=== PATIENT | female | born 1985 | race Caucasian/White ===

== ENCOUNTER 2017-01-26 19:20 | Emergency (ER) | payer SELFPAY ==
--- NOTE | 2017-01-26 20:20 | RAD ---
PORTABLE CHEST 01/26/17 PROVIDED CLINICAL HISTORY: Chest pain. FINDINGS: Comparison is made with the study dated 04/15/16. The cardiac silhouette appears prominent which may be at least partially on the basis of portable keo hnique. There is multifocal air space disease present within the right lung compatible with pneumonia in the appropriate clinical context. No pleural fluid or pneumothorax is evident. IMPRESSION: Right sided air space disease, compatible with pneumonia in the appropriate clinical context. Radiogr aphic followup after treatment is recommended to evaluate for resolution. POS: [facility]
[2017-01-26] MEDS ORDERED: Ibuprofen 800 MG TAB ONE (21:23)
[2017-01-26 21:52] LABS: Hematocrit 44.1 % (36.0-47.0); Mean Platelet Volume 8.6 fL (7.4-10.4); Red Blood Cell (RBC) Count 4.77 mill/uL (4.20-5.40); White Blood Cell (WBC) Count 8.2 thou/uL (4.8-10.8)
[2017-01-26 22:01] LABS: ALT (SGPT) 52 U/L (8-55); AST (SGOT) 58 U/L (5-34); Alkaline Phosphatase 46 U/L (40-150); Anion Gap 20 mmol/L (10-20); BUN (Urea Nitrogen) 15 mg/dL (7.0-18.7); Bilirubin, Total 1.6 mg/dL (0.2-1.2); Calc. Creatinine Clearance 0 mL/min (70-130); Calcium 9.6 mg/dL (7.8-10.44); Carbon Dioxide 19 mmol/L (22-29); Chloride 99 mmol/L (98-107); Estimated GFR-MDRD 26; Globulin 4.1 g/dL (2.4-3.5)
[2017-01-26 22:06] LABS: Troponin I Less than 0.010 ng/mL (< 0.028)
[2017-01-26 22:11] LABS: Band 46 % (5-11); Metamyelocyte 8 % (0-0); Neutrophil 26 % (42-75); Reactive Lymphocytes 1 % (0-10); Toxic Granulation SLIGHT; Vacuoles SLIGHT
== END 2017-01-27 00:32 | disposition home or self-care (01) ==
LOC: ERS 19:20
DX: J18.9 Pneumonia, unspecified organism (principal); E11.9 Type 2 diabetes mellitus without complications; I10 Essential (primary) hypertension; E66.9 Obesity, unspecified; E78.00 Pure hypercholesterolemia, unspecified; F41.9 Anxiety disorder, unspecified; Z79.84 Long term (current) use of oral hypoglycemic drugs; Z79.899 Other long term (current) drug therapy
CPT/HCPCS: 36416; 71010; 80053; 82553; 83880; 84484; 85025; 85060; 85379; 93005; 96360

== ENCOUNTER 2017-01-27 14:31 | Inpatient (IN) | payer SELFPAY ==
--- NOTE | 2017-01-27 15:12 | RAD ---
CHEST 1 VIEW: Date: 01/27/17 HISTORY: Dyspnea. COMPARISON: Chest 1 view dated 01/26/17. FINDINGS: Heart size is enlarged. There are extensive bilateral parenchymal opacities throughout both lungs. La rge layering right effusion. IMPRESSION: Mild worsening of effusions and extensive parenchymal opacities concerning for infection. POS: [facility]
[2017-01-27 15:17] LABS: Hemoglobin 14.5 g/dL (12.0-16.0); Mean Corpuscular HGB CONC 33.8 g/dL (32.0-36.0); Mean Corpuscular Hemoglobin 31.7 pg (27.0-31.0); Mean Corpuscular Volume 93.8 fl (81.0-99.0); Mean Platelet Volume 8.1 fL (7.4-10.4); Platelet Count 215 thou/uL (130-400); RBC Distribution Width 12.6 % (11.5-14.5); Red Blood Cell (RBC) Count 4.57 mill/uL (4.20-5.40)
[2017-01-27 15:34] LABS: Band 41 % (5-11); Lymphocytes 16 % (21-51); MDiff Complete? YES; Metamyelocyte 9 % (0-0); Monocytes 5 % (0-10); Neutrophil 29 % (42-75); RBC Morphology Normal; Toxic Granulation SLIGHT; Vacuoles SLIGHT
[2017-01-27 15:35] LABS: ALT (SGPT) 44 U/L (8-55); AST (SGOT) 48 U/L (5-34); Albumin 3.9 g/dL (3.5-5.0); Alkaline Phosphatase 44 U/L (40-150); Anion Gap 25 mmol/L (10-20); BUN (Urea Nitrogen) 30 mg/dL (7.0-18.7); Bilirubin, Total 1.1 mg/dL (0.2-1.2); Calc. Creatinine Clearance 0 mL/min (70-130); Carbon Dioxide 15 mmol/L (22-29); Chloride 98 mmol/L (98-107); Estimated GFR-MDRD 18; Glucose 160 mg/dL (70-105); Potassium 4.1 mmol/L (3.5-5.1); Protein, Total 7.9 g/dL (6.0-8.3); Sodium 134 mmol/L (136-145)
[2017-01-27] MEDS ORDERED: Lorazepam 2 MG/ML VIAL ONE (16:03)
[2017-01-27] MEDS ORDERED: Fentanyl 20 MCG/ML 250 ML ONE (16:22)
[2017-01-27] MEDS ORDERED: Ondansetron HCl/PF 4 MG/2 ML Vial ONE (16:40)
[2017-01-27] MEDS ORDERED: EPINEPHrine 1 MG/10 ML Abboject SYRINGE ONE (16:43)
[2017-01-27] MEDS ORDERED: EPINEPHrine 1 MG/ML AMP ONE (16:43)
[2017-01-27 17:22] LABS: Actual Bicarbonate (HCO3a) 18.2 mEq/L (22-26); Base Excess (BEa) -11.7 mEq/L (0 (+/-) 2.5); CO2 Tension 58.4 mmHg (35.0-45.0); Hematocrit-ABG 44.4 % (36.0-47.0); Hemoglobin (Hb) 13.7 g/dL (12.0-16.0); O2 Tension (PaO2) 98.4 mmHg (80.0-100.0)
[2017-01-27 17:24] LABS: Analyzer IN Cardio ER; Puncture Site LR; pH, Arterial 7.11 (7.35-7.45)
--- NOTE | 2017-01-27 17:48 | RAD ---
SUPINE CHEST ONE VIEW: 01/27/17 HISTORY: 31-year-old female with history of pneumonia with worsening shortness of breath. COMPARISON: 01/27/17, 3:06 p.m. An NG tube and endotracheal tubes have been placed in satisfactory location. Extensive bilateral alve olar pneumonia much more severe on the right side than the left. Overall, appearance of the chest is not significantly changed. There is improved aeration. IMPRESSION: Satisfactory position of the NG tube and endotracheal tubes. Extensive pneumonia bilaterally, particu larly on the right side with slightly improved aeration but otherwise little change. POS: [facility]
[2017-01-27 18:14] LABS: Bilirubin Negative (Negative); Blood, Urine Small (Negative); Clarity CLOUDY (Clear); Glucose, Urine (Dipstick) Negative (Negative); Leukocyte Negative (Negative); Nitrite Negative (Negative); Protein, Urine (Dipstick) 100 mg/dL (Neg-Trace); Specific Gravity, Urine 1.019 (1.002-1.036); Urobilinogen 0.2 mg/dL (0.2-1.0); pH, Urine 5.5 (5.0-9.0)
[2017-01-27 18:17] LABS: RBC/HPF 0-3 HPF (0-3); Yeast-AUWi Flag 218.4 (0-25.0)
[2017-01-27 18:18] LABS: Pathc Cast-AUWi Flag 13.28 (0-2.49)
[2017-01-27 18:24] LABS: Bacteria/HPF 4+ HPF (None Seen); Hyaline Casts/LPF 4-6 HYALINE CAST LPF (0-3 Hyaline); Manual Microscopic Reviewed? No Path Casts Seen; Other Casts/LPF 4-6 FINELY GRAN LPF (0-3 Hyaline); Renal Epithelial None Seen HPF (0-3); Transitional Epithelial NONE SEEN HPF (0-3); Yeast-All Forms None Seen HPF (None Seen)
[2017-01-27] MEDS ORDERED: Norepinephrine 8 MG/0.9% NS 250 ML ONE (18:42)
--- NOTE | 2017-01-27 18:42 | HP ---
DATE OF ADMISSION: 01/27/2017 TIME OF SERVICE: 1645 to 1733. PRIMARY CARE PHYSICIAN: More. CHIEF COMPLAINT: Shortness of breath. HISTORY OF PRESENT ILLNESS: Mr. Andrade is a 31-year-old severely obese female with history of hyper tension and diabetes, who presented to the emergency department today for increasing shortness of isaac ath. The patient is a 31 and mother of 4, apparently all 4 of her children at home have the flu currently. She was feeling poorly yesterday and presented to the emergency department for evaluation last even ing. She was having body aches and flu-like symptoms. Labs here yesterday revealed slightly increas ed temperature 99.4, she is slightly tachycardic, she was given Motrin and a liter of saline and 4 ba by aspirin. Chest x-ray revealed right-sided bibasilar pneumonia, right greater than left. She was given albuterol nebulizers. She was given a dose of azithromycin and started her on Levaquin 750 mg daily and sent home. Flu test was negative. She went home and apparently worsened. She presented back to emergency department today for evaluati on. Per the record, she thinks she might have fever, but she has been using her inhaler and her nebu lizer last couple of hours prior to admission. On arrival, she was hypoxic with an oxygen saturation on arrival of 85% on room air. She was placed on oxygen and eventually on BiPAP. She actually did vomit into the BiPAP mask and unsure if she aspirated. Her blood pressure did drop off initially fro m 110s/60s down into the 80s/40s. She continued to worsen and thus was paralyzed and intubated in e emergency department. Her labs came back largely unremarkable except for bandemia, her creatinine today is 3.06 up from the 2.17 before that and back in 04/2016 was normal at 0.71. Lactic acid 7.6. She is currently sedated, paralyzed on the ventilator. We have been called for admission. The patient unable to give further history. The history was taken from the chart and from the emerge ncy department team. PAST MEDICAL HISTORY: 1. Severe obesity. 2. Diabetes mellitus type 2, noninsulin dependent. 3. Hypertension. 4. Hyperlipidemia, primary cholesterol. 5. History of anxiety. PAST SURGICAL HISTORY: 1. Bilateral tubal ligation. 2. Cholecystectomy. 3. x4. 4. Tonsillectomy. HOME MEDICATIONS: 1. Metformin 500 mg p.o. q.p.m. 2. Zoloft 150 mg p.o. at bedtime. 3. Losartan/HCTZ 100/25 one tablet b.i.d. 4. Albuterol sulfate MDI 2 puffs every 4 hours as needed. 5. Azithromycin 250 mg daily. 6. Levaquin 750 mg daily. ALLERGIES: KEFLEX, reaction is not known and she is unable to give it. FAMILY HISTORY: Unknown. Per the ER doctor, she has no history of clotting or bleeding disorder or immune dysfunction. SOCIAL HISTORY: She is a mother of 4. Apparently all sick. No alcohol, drug or smoking history. REVIEW OF SYSTEMS: Unobtainable due to her being intubated and sedated. PHYSICAL EXAMINATION: VITAL SIGNS: Temperature around 97.6, pulse 94/64, respiratory rate 36, pulse 112, saturating 98% on BiPAP. She is currently 100% on ventilator. GENERAL: She is severely obese. She is sedated and paralyzed and orally intubated. She is in no di stress. HEENT: Normocephalic, atraumatic. Pupils are 2-3 mm and minimally reactive. Mucous membranes are m oist. Oral endotracheal tube is in place. NECK: Supple. There is no lymphadenopathy. I cannot appreciate JVD. I cannot feel her thyroid. LUNGS: Have coarse bibasilar crackles. She has a prolonged expiratory phase and low pitched wheezin g throughout her lung carlos. I do not hear rhonchi. CARDIOVASCULAR: She is tachycardic, irregular. She has normal S1, S2. I cannot appreciate murmurs. ABDOMEN: Severely obese. I can hear normoactive bowel sounds. I cannot palpate internal organs. EXTREMITIES: No cyanosis. No clubbing. She has got nonpitting edema in the bilateral lower extremi ties below the knee. SKIN: Got multiple areas of inflammation consistent with folliculitis. She has no other rashes or l esions. NEUROLOGIC: Gait was not testable due to her intubated and paralyzed status. MUSCULOSKELETAL: Large joints appear normal to inspection. LABORATORY DATA: CMP showed sodium 134, potassium 4.1, chloride 98, bicarb 15, BUN 30, creatinine 3. 02, 2.17 today from 0.71 back in April of this year. Glucose is 160. Lactic acid 7.6, it was not ch ecked yesterday. Calcium 9.0, total bilirubin 1.1. AST barely elevated at 48, ALT of 44, alkaline p hosphatase 44. BNP 189.8, up from 28 yesterday. Albumin is normal at 3.9. Blood gas is pending. D-dimer yesterday was 0.63. CBC today showed a white count of 4.0, down from 8.2 yesterday, hemoglob in 14.5, hematocrit of 42.8, and platelet count is 215,000. She has a 29% granulocytosis with a 41% bandemia. She has a 9 metamyelocytes present. Chest x-ray today at 2:40, she had a portable chest x-ray done that showed mild worsening of the effu dara and extensive parenchymal opacities in both lungs, by my looks worse on the right than the left . Post-intubation x-ray is currently pending. It does show to have diffuse bilateral interstitial o pacities consistent with pneumonia. Laboratory on today, 01/27/2017, influenza positive for influenza A. I do not see one from yesterday . ASSESSMENT AND PLAN: 1. Severe sepsis. The patient has a presumed bacterial infection, elevated lactate and acute kidney injury indicating end organ disease. She was hypotensive, tachycardic, and febrile. She does not h ave an elevated white count, it is actually little on the low side today, but she does have a profoun d left shift with 41% granulocytes, 9% myelocytes. She certainly meets criteria for severe sepsis. Her blood pressure remained stable after IV fluids. I do not think she has septic shock at this time . 2. Community-acquired pneumonia: The patient does have bilateral infiltrates that are getting worse . I will place her on cefepime and levofloxacin for community-acquired pneumonia in an ICU patient. Given the fact that she threw up in her BiPAP mask and may have aspirated, we will start her and con tinue her on clindamycin 900 mg IV q.8 hours as well. 3. Influenza A. The patient reportedly was negative yesterday I do not see that lab, she is positiv e today. We will start her on oseltamivir 75 mg orally b.i.d. We will have an OG tube placed when s he gets up to the ICU. 4. Diabetes mellitus type 2. Sugars on arrival was 160. She is getting Solu-Medrol. Thus, we will place on insulin drip with every one hour Accu-Cheks, this will be per ICU protocol. 5. Hypertension: We will hold her medicines for now. She is actually a little on the hypotensive s nancy now. 6. Obesity. 7. Acute hypoxemic respiratory failure: The patient has been intubated and placed on the ventilator . We will use Solu-Medrol 40 mg IV q.6 hours in addition to scheduled DuoNebs q.4 tonight and q.2 al buterol as needed. We will adjust her oxygen and ABG after her intubation. The patient is being admitted inpatient to the Critical Care Unit. I have spoken with Dr. Nolberto robins, who will assist with the patient as needed.
[2017-01-27] MEDS ORDERED: DISCONTINUE PREVIOUS NARCOTIC PAIN MEDICATIONS AND BENZODIAZEPINES FS SCH ×2 (19:34→20:40)
[2017-01-27] MEDS ORDERED: Lorazepam 2 MG/ML VIAL SLOW IVP PRN (19:34)
[2017-01-27] MEDS ORDERED: Propofol 1,000 MG/100 ML VIAL IV PRN (19:34)
[2017-01-27] MEDS ORDERED: Fentanyl 20 MCG/ML 250 ML IVPB SCH ×2 (19:34→20:40)
[2017-01-27] MEDS ORDERED: Morphine 2 MG/ML SYRINGE IVP PRN (19:36)
[2017-01-27] MEDS ORDERED: Ondansetron HCl/PF 4 MG/2 ML Vial IVP PRN (19:41)
[2017-01-27] MEDS ORDERED: Ondansetron ODT 4 MG TAB SL PRN (19:41)
[2017-01-27] MEDS ORDERED: Cefepime 2 GM, Syringe 2.5 ML in Sterile Water 10 ML SLOW IVP SCH (19:45)
[2017-01-27] MEDS ORDERED: Diazepam 10 MG/2 ML SYRINGE IVP SCH (19:45)
[2017-01-27] MEDS ORDERED: Sodium Chloride 0.9% 1,000 ML IV SCH (19:45)
[2017-01-27 20:05] LABS: Lactic Acid 3.4 mmol/L (0.5-2.2)
[2017-01-27] MEDS ORDERED: Ventilator Sedation Protocol 1 EACH FS SCH (20:23)
[2017-01-27] MEDS ORDERED: Albuterol Sulfate 2.5 mg/3 ml Neb NEB PRN (20:23)
[2017-01-27 20:43] LABS: Actual Bicarbonate (HCO3a) 15.5 mEq/L (22-26); Base Excess (BEa) -11.2 mEq/L (0 (+/-) 2.5); CO2 Tension 37.6 mmHg (35.0-45.0); Hematocrit-ABG 39.4 % (36.0-47.0); Hemoglobin (Hb) 12.6 g/dL (12.0-16.0); O2 Tension (PaO2) 84.2 mmHg (80.0-100.0)
[2017-01-27] MEDS ORDERED: Sodium Bicarb 50 MEQ/50 ML Abboject 8.4% SYRINGE IVP SCH (20:45)
[2017-01-27] MEDS ORDERED: Enoxaparin Sodium 40 MG/0.4 ML SYRINGE SC SCH (20:45)
[2017-01-27 20:53] LABS: pH, Arterial 7.23 (7.35-7.45)
[2017-01-27 20:54] LABS: Puncture Site RRA
[2017-01-27] MEDS ORDERED: Cefepime 2 GM VIAL IVPB SCH (21:00)
[2017-01-27] MEDS ORDERED: Albumin 25% 25 GM/100 ML BOT IVPB SCH ×2 (21:00→23:59)
[2017-01-27] MEDS ORDERED: Lorazepam 2 MG/ML VIAL SLOW IVP SCH (21:15)
[2017-01-27] MEDS ORDERED: Vecuronium 10 MG VIAL IV SCH (21:15)
[2017-01-27] MEDS: Sodium Bicarbonate 150 MEQ in D5 1/4 NS 1,000 ML IV SCH (21:37)
[2017-01-27] MEDS: Sodium Chloride 0.9% 1,000 ML IV SCH (21:39)
[2017-01-27] MEDS: Oseltamivir 6 MG/ML ORAL SUSP PO SCH (22:26)
[2017-01-27] MEDS: Clindamycin/D5W 900 mg/50 ml Premix Bag IVPB SCH (22:27)
[2017-01-28] MEDS: Norepinephrine 8 MG/0.9% NS 250 ML IVPB SCH ×4 (00:21→16:05)
--- NOTE | 2017-01-28 01:46 | CON ---
DATE OF CONSULTATION: 01/27/2017 HISTORY OF PRESENT ILLNESS: Ms. Andrade is a 31-year-old female who presented to the emergency depar tment earlier today with complaints of shortness of breath. She was noninvasively ventilated for a w hile and then eventually intubated. She told the emergency physician that she was diagnosed with pneumonia yesterday. It is unclear to m e where this diagnosis was made or how was made. It is also unclear how long she has been ill. Her sister is here who actually is and chanel dean explained to me that Mariza will never go to the doctor. She has a who does not speak Swedish. They have 4 children at home and she has a mother also that is aware that she is in the hospital. Apparently all of her children have been diagnosed with influenza. No other history is obtainable from her or the sister. Reviewing records, she was apparently in the emergency room yesterday. Chest radiograph showed an al veolar infiltrate on the right. She was sent home and came back today, required intubation now, she has a central line in her right groin, then apparently was placed in the emergency department with di fficulty on ultrasound guidance because of her size. She is on 2 pressors. PAST MEDICAL HISTORY: Reportedly positive for hypertension and diabetes, sister says she does not ta ke any medicines. PAST SURGICAL HISTORY: She has had a tonsillectomy, tubal ligation, cholecystectomy, four C-sections in the past. SOCIAL HISTORY: She is a nonsmoker, nondrinker according to old records. Apparently Zithromax and Levaquin were prescribed yesterday. It is unclear to me whether or not thes e prescriptions were filled. PHYSICAL EXAMINATION: GENERAL: She has a left forearm bariatric cuff on. VITAL SIGNS: Blood pressure is fluctuating. HEENT: Pupils react. Sclerae are anicteric. She is paralyzed and sedated for mechanical ventilatio n. She has coarse equal breath sounds, worse on the right. HEART: Regular rhythm, distant S1 and S2. ABDOMEN: Massive. EXTREMITIES: Without asymmetry. LABORATORY AND X-RAY FINDINGS: White count 4, hemoglobin 14.5, platelets 215. She had 41% bands on her peripheral smear. She had 46% bands on a peripheral smear yesterday. No cultures were done yest erday. Influenza swab is positive for influenza A today, which I suspect is probably already out of the infectious window. Chest radiograph shows a dense alveolar infiltrate on the right and smaller one on the left. IMPRESSION: 1. Post-influenzal pneumonia, most likely pneumococcus. 2. Clinical sepsis. PLAN: IV steroids, IV antibiotics, IV Levophed, IV vasopressin salt-poor albumin, mechanical ventila tion, paralysis and sedation as needed. Prognosis is quite guarded. I met with her sister, answered all of her questions. Critical care time with the patient was 90 minutes independent of procedures and family meetings.
[2017-01-28] MEDS ORDERED: EPINEPHrine 4 MG, Admixture Fee 1 EACH in Dextrose 5% in Water 250 ML IVPB SCH ×3 (02:00)
[2017-01-28] MEDS: Sodium Bicarbonate 150 MEQ in D5 1/4 NS 1,000 ML IV SCH ×4 (02:09→19:25)
--- NOTE | 2017-01-28 02:16 | OP ---
DATE: 01/27/2017 PROCEDURE: Attempted arterial line placement, left groin. Her left groin was prepped aggressively with chlorhexidine and Betadine. The left femoral artery cou ld not be located with finder needle. I am not sure a catheter could even be fed into the femoral ar brie unless it was a 5 inch 16 gauge straight IV catheter. This procedure was aborted after multiple attempts and a dressing was applied. No bleeding was noted post procedure. I am hesitant to place a radial arm catheter because of her high dose pressor requirements. I am worried about hand necrosi s in this setting, so we will just manage her with forearm bariatric cuff.
[2017-01-28] MEDS: Albumin 25% 25 GM/100 ML BOT IVPB SCH ×4 (02:20→20:53)
[2017-01-28] MEDS: Vecuronium 10 MG VIAL IV PRN ×10 (02:21→23:18)
[2017-01-28] MEDS: Clindamycin/D5W 900 mg/50 ml Premix Bag IVPB SCH ×3 (04:05→20:57)
[2017-01-28] MEDS ORDERED: Vancomycin HCl 1 GM in Premix Bag 1 BAG IVPB SCH (05:00)
[2017-01-28] MEDS: Acetaminophen 1,000 MG in Premix Bag 1 BAG IVPB PRN ×2 (05:35→19:10)
[2017-01-28] MEDS: Sodium Chloride 0.9% 1,000 ML IV SCH ×3 (05:42→21:04)
[2017-01-28 06:12] LABS: ALT (SGPT) 44 U/L (8-55); AST (SGOT) 87 U/L (5-34); Albumin 3.2 g/dL (3.5-5.0); Alkaline Phosphatase 44 U/L (40-150); Anion Gap 25 mmol/L (10-20); BUN (Urea Nitrogen) 35 mg/dL (7.0-18.7); Bilirubin, Total 1.3 mg/dL (0.2-1.2); Calc. Creatinine Clearance 86 mL/min (70-130); Calcium 7.6 mg/dL (7.8-10.44); Carbon Dioxide 16 mmol/L (22-29); Chloride 99 mmol/L (98-107); Estimated GFR-MDRD 20; Glucose 328 mg/dL (70-105); Potassium 3.9 mmol/L (3.5-5.1); Protein, Total 6.2 g/dL (6.0-8.3); Sodium 136 mmol/L (136-145)
[2017-01-28 06:19] LABS: Hemoglobin 11.6 g/dL (12.0-16.0); Mean Corpuscular HGB CONC 32.5 g/dL (32.0-36.0); Mean Corpuscular Hemoglobin 30.7 pg (27.0-31.0); Mean Corpuscular Volume 94.4 fl (81.0-99.0); Platelet Count 243 thou/uL (130-400); RBC Distribution Width 12.7 % (11.5-14.5); Red Blood Cell (RBC) Count 3.77 mill/uL (4.20-5.40); White Blood Cell (WBC) Count 6.9 thou/uL (4.8-10.8)
[2017-01-28 06:52] LABS: Band 40 % (5-11); Lymphocytes 15 % (21-51); MDiff Complete? YES; Metamyelocyte 3 % (0-0); Monocytes 1 % (0-10); Neutrophil 41 % (42-75)
[2017-01-28 07:35] LABS: CO2 Tension 27.2 mmHg (35.0-45.0); Calcium, Ionized 0.9 mmol/L (1.12-1.30); Hemoglobin (Hb) 11.4 g/dL (12.0-16.0); O2 Tension (PaO2) 287.9 mmHg (80.0-100.0); pH, Arterial 7.36 (7.35-7.45)
[2017-01-28 07:37] LABS: Puncture Site LBA
[2017-01-28] MEDS: Cefepime 2 GM, Syringe 2.5 ML in Sterile Water 10 ML SLOW IVP SCH ×2 (08:35→20:55)
[2017-01-28] MEDS: Enoxaparin Sodium 40 MG/0.4 ML SYRINGE SC SCH (08:38)
[2017-01-28] MEDS: Lorazepam 2 MG/ML VIAL SLOW IVP PRN ×5 (08:59→17:10)
[2017-01-28] MEDS ORDERED: FLU VACC QS2017-18 36 mo. & older 0.5 ML SYRINGE IM ONE (09:00)
--- NOTE | 2017-01-28 09:52 | RAD ---
AP VIEW CHEST: Date: 01/28/17 HISTORY: Ventilator dependent patient. FINDINGS: Comparison made to previous exam from 01/28/17. AP view of chest demonstrates endotracheal tube in place, distal tip clearly not visible. Endotrachea l tube is in good position. Cardiomegaly is noted. There is an area of opacification in the right lung base concerning for a right-sided effusion. Diffu se air space opacities seen in the right upper lobe, right middle lobe, and right lower lobe compatib le with multilobar right lung pneumonia. There may be some areas of patchy density in the left lower lobe as well. The left upper lobe is well aerated, except for some pulmonary vascular congestion. IMPRESSION: Stable AP view of chest with extensive right lung opacities. Endotracheal tube is in good position. POS: [facility]
[2017-01-28] MEDS: Oseltamivir 6 MG/ML ORAL SUSP PO SCH ×2 (10:47→21:38)
[2017-01-28] MEDS ORDERED: Dextrose 5% in Water 1,000 ML IV PRN (15:35)
[2017-01-28] MEDS ORDERED: Dextrose 50% Abboject 50 ML SYRINGE IVP PRN (15:35)
[2017-01-28] MEDS: HumaLOG 300 UNITS/3 ML VIAL SC PRN ×2 (16:04→22:08)
--- NOTE | 2017-01-28 22:37 | PDOC.PN ---
- Subjective Encounter Start Date: 01/28/17 Encounter Start Time: 17:00 -: non-verbal Patient seen and examined[facility] - Objective Resuscitation Status: Resuscitation Status FULL:Full Resuscitation MAR Reviewed: Yes Vital Signs & Weight: Vital Signs (12 hours) Temp Pulse Resp Pulse Ox 01/28/17 22:34 95 23 H 98 01/28/17 21:00 102.0 F H 01/28/17 20:00 102.3 F H 98 30 H 98 01/28/17 19:31 30 H 01/28/17 19:02 98 22 H 99 01/28/17 19:00 102.3 F H 01/28/17 18:00 30 H 01/28/17 16:00 99.7 F H 30 H 01/28/17 15:15 94 01/28/17 14:00 30 H 01/28/17 12:51 94 01/28/17 12:00 99.9 F H 30 H 01/28/17 11:02 93 Weight Admit Weight 414 lb Weight 414 lb 7.504 oz Most Recent Monitor Data Heart Rate from ECG 94 NIBP 120/69 NIBP BP-Mean 84 Respiration from ECG 30 SpO2 97 I&O: 01/27/17 01/28/17 01/29/17 06:59 06:59 06:59 Intake Total 4054.3 4617 Output Total 615 1980 Balance 3439.3 2637 Result Diagrams: 01/29/17 04:00 01/29/17 04:00 Additional Labs: Accuchecks 01/28/17 01/28/17 15:55 09:38 POC Glucose 310 H 298 H Radiology Reviewed by me: Yes (CXR - no new changes) EKG Reviewed by me: Yes (Tele SR) Phys Exam - Physical Examination Pt on Mech Vent with 2 pressors. Respiratory: no wheezing Symmetrical, Coarse BS B/L Cardiovascular: RRR, no rub no heaves/pulsation Gastrointestinal: soft, non-tender, no distention, positive bowel sounds Musculoskeletal: no edema Neuro/Psych - Cannot assess due to sedation Dx/Plan - Plan DVT proph w/lovenox, DVT proph w/SCDs IMPRESSION: 1. Acute hypoxic/hypercapnic Resp failure on Mech Vent 2. Severe sepsis with acuter organ dysfunction/Septic shock due to Pneumococcal Pneumonia/Recent Flu A 3. FREDY 4. Metabolic acidosis/Lactic acidosis 5. DM2/HTN/Morbid Obesity BMI 68.2/Anxiety-Depression PLAN: * Critical care following * [facility] * Cont IVF with Bicarb * AM labs * Cont to monitor * Cont current meds as below Review of Systems - Review of Systems Other: Cannot obtain due to sedation - Medications/Allergies Allergies/Adverse Reactions: Allergies Allergy/AdvReac Type Severity Reaction Status Date / Time No Allergy Information Allergy Unverified 01/27/17 19:32 Available Medications: Current Medications Acetaminophen (Tylenol) 650 mg OR Q4H PRN PRN Reason: Headache/Fever or Pain Albumin Human (Albumin 25%) 25 gm IVPB 0300,0900,1500,2100 [facility] Stop: 01/29/17 21:00 Last Admin: 01/28/17 20:53 Dose: 25 gm Albuterol Sulfate (Ventolin) 2.5 mg NEB Q2H PRN PRN Reason: Wheezing Albuterol/Ipratropium (Duoneb) 3 ml NEB [id number] [facility] Last Admin: 01/28/17 22:34 Dose: 3 ml Clindamycin Phosphate/Dextrose (Cleocin) 900 mg IVPB 0500,1300,2100 [facility] Last Admin: 01/28/17 20:57 Dose: 900 mg Dextrose/Water (Dextrose 50%) 25 gm IVP PRN PRN PRN Reason: HYPOGLYCEMIA PROTOCOL Enoxaparin Sodium (Lovenox) 40 mg SC 0900 [facility] Last Admin: 01/28/17 08:38 Dose: 40 mg Glucagon (Glucagon) 1 mg IM PRN PRN PRN Reason: HYPOGLYCEMIA PROTOCOL Levofloxacin 750 mg/ Device 150 mls @ 100 mls/hr IVPB Q24HR [facility] Last Admin: 01/28/17 20:48 Dose: 150 mls Norepinephrine Bitartrate (Levophed) 250 mls @ 0 mls/hr IVPB INF [facility]; Titrate PRN Reason: Protocol Last Admin: 01/28/17 16:05 Dose: 250 mls Sodium Chloride (Normal Saline 0.9%) 1,000 mls @ 125 mls/hr IV .Q8H [facility] Last Admin: 01/28/17 21:04 Dose: 1,000 mls Vasopressin 40 unit/ Sodium (Chloride) 102 mls @ 6 mls/hr IV INF [facility] Last Admin: 01/28/17 11:18 Dose: 102 mls Fentanyl (Fentanyl Cadd) 250 mls @ 0 mls/hr IVPB INF [facility]; Titrate PRN Reason: Protocol Stop: 02/26/17 20:40 Fentanyl Citrate (Fentanyl Bolus) 250 mls @ 0 mls/hr IVPB PRN PRN; As Directed PRN Reason: Breakthrough pain Stop: 02/26/17 20:40 Cefepime HCl 2 gm/ Syringe 2.5 (ml/ Sterile Water) 12.5 mls @ 150 mls/hr SLOW IVP 0900,2100 [facility] Last Admin: 01/28/17 20:55 Dose: 12.5 mls Sodium Bicarbonate 150 meq/ (Dextrose/Sodium Chloride) 1,150 mls @ 200 mls/hr IV .Q5H45M [facility] Last Admin: 01/28/17 19:25 Dose: 1,150 mls Epinephrine 4 mg/Miscellaneous Medication 1 each/ Dextrose/Water 254 mls @ 0 mls/hr IVPB INF [facility]; Titrate PRN Reason: Protocol Last Admin: 01/28/17 02:09 Dose: 254 mls Acetaminophen 1,000 mg/ Device 100 mls @ 400 mls/hr IVPB Q6H PRN PRN Reason: PAIN 1-3/FEVER Stop: 01/29/17 05:12 Last Admin: 01/28/17 19:10 Dose: 100 mls Dextrose/Water (D5w) 1,000 mls @ 0 mls/hr IV INF PRN; As Directed PRN Reason: HYPOGLYCEMIA PROTOCOL Insulin Human Lispro (Humalog) 0 units SC .MODERATE SLIDING SC PRN; Protocol PRN Reason: MODERATE SLIDING SCALE Last Admin: 01/28/17 22:08 Dose: 10 unit Lorazepam (Ativan) 2 mg SLOW IVP Q2H PRN PRN Reason: Anxiety to achieve Hinojosa 2-3 Stop: 02/26/17 20:40 Last Admin: 01/28/17 17:10 Dose: 2 mg Methylprednisolone Sodium Succinate (Solu-Medrol) 20 mg IVP 0400,1000,1600, 2200 [facility] Last Admin: 01/28/17 22:09 Dose: 20 mg Morphine Sulfate (Morphine) 2 mg IVP Q2H PRN PRN Reason: Breakthrough pain Stop: 02/26/17 20:43 Discontinue Previous Narcotic Pain Medications And Benzodiazepines 1 each FS .ONE [facility] Stop: 02/26/17 20:40 Oseltamivir Phosphate (Tamiflu) 75 mg PO BID [facility] Stop: 02/01/17 09:01 Last Admin: 01/28/17 21:38 Dose: 75 mg Propofol (Diprivan) 1,000 mg IV INF PRN; Protocol PRN Reason: TO ACHIEVE HINOJOSA SCORE 2-3 Stop: 02/26/17 20:40 Sodium Chloride (Flush - Normal Saline) 10 ml IVF PRN PRN PRN Reason: Saline Flush Vecuronium [place] (Norcuron) 10 mg IV Q1H PRN PRN Reason: FOR MUSCLE PARALYSIS Last Admin: 01/28/17 19:21 Dose: 10 mg
--- NOTE | 2017-01-29 00:13 | PRG ---
DATE OF SERVICE: 01/28/2017 Ms. Andrade appears to be stabilizing. Her pressor requirements appear to be decreasing. OBJECTIVE: VITAL SIGNS: She is febrile, as expected. Heart rate in the 90s. Blood pressure 120/69, respirator y rate was 30. LUNGS: Remarkable for coarse equal breath sounds. HEART: Regular rhythm. ABDOMEN: Soft. Strep pneumonia. It was isolated from 1 blood culture. White count 6.9, hemoglobin 11.6, platelets 243. Sodium 136, potassium 3.9, chloride 99, bicarbonate 16, BUN 35, creatinine 2.82, it is down from 3.02 yesterday and pH 7.36, CO2 of 27, pO2 of 287. IMPRESSION: 1. Respiratory failure associated with pneumococcal pneumonia with bacteremia after influenza in her and all of her kids. 2. Respiratory failure. 3. Life threatening obesity. 4. Diabetes. 5. Medical noncompliance prior to this admission by report. 6. Clinical sepsis with improving pressure requirements. 7. History of hypertension and medical noncompliance. 8. History of four C-sections. 9. History of cholecystectomy. 10. Reported history of asthma. PLAN: Continue mechanical ventilation, pressors, IV antimicrobial therapy. Once sensitivities are b ack, we can simplify antibiotics. There are no signs of digital ischemia at this point in time in sp ite of high dose pressor use. She was started on epinephrine early in the morning and this is weaned off by the time I made rounds this morning still on vasopressin and decreasing dose of Levophed. Sh e will continue with bicarbonate drip. Acute kidney injury appears to be improving for now. Critical care time was 30 minutes.
[2017-01-29] MEDS: Sodium Bicarbonate 150 MEQ in D5 1/4 NS 1,000 ML IV SCH ×2 (00:52→08:09)
[2017-01-29] MEDS: Albumin 25% 25 GM/100 ML BOT IVPB SCH (02:05)
[2017-01-29] MEDS: Vecuronium 10 MG VIAL IV PRN ×7 (02:05→23:58)
[2017-01-29] MEDS: HumaLOG 300 UNITS/3 ML VIAL SC PRN ×4 (03:54→21:41)
[2017-01-29] MEDS: Sodium Chloride 0.9% 1,000 ML IV SCH (04:33)
[2017-01-29] MEDS: Clindamycin/D5W 900 mg/50 ml Premix Bag IVPB SCH ×3 (04:33→20:36)
[2017-01-29 05:19] LABS: ALT (SGPT) 113 U/L (8-55); AST (SGOT) 466 U/L (5-34); Albumin 3.2 g/dL (3.5-5.0); Alkaline Phosphatase 34 U/L (40-150); Anion Gap 17 mmol/L (10-20); BUN (Urea Nitrogen) 34 mg/dL (7.0-18.7); Bilirubin, Total 1.7 mg/dL (0.2-1.2); Calc. Creatinine Clearance 123 mL/min (70-130); Calcium 7.5 mg/dL (7.8-10.44); Carbon Dioxide 25 mmol/L (22-29); Chloride 98 mmol/L (98-107); Estimated GFR-MDRD 30; Globulin 2.5 g/dL (2.4-3.5); Glucose 396 mg/dL (70-105); Potassium 3.4 mmol/L (3.5-5.1); Protein, Total 5.7 g/dL (6.0-8.3); Sodium 137 mmol/L (136-145)
[2017-01-29 05:27] LABS: Band 29 % (5-11); Hemoglobin 9.3 g/dL (12.0-16.0); Lymphocytes 24 % (21-51); MDiff Complete? YES; Mean Corpuscular HGB CONC 32.2 g/dL (32.0-36.0); Mean Corpuscular Volume 93.1 fl (81.0-99.0); Mean Platelet Volume 8.8 fL (7.4-10.4); Monocytes 3 % (0-10); Neutrophil 44 % (42-75); Nucleated RBC 1 % (0); PLT Morphology Comment Appears Adequate; Platelet Count 123 thou/uL (130-400); RBC Distribution Width 12.6 % (11.5-14.5); White Blood Cell (WBC) Count 4.1 thou/uL (4.8-10.8)
[2017-01-29 07:00] LABS: Actual Bicarbonate (HCO3a) 21.4 mEq/L (22-26); Calcium, Ionized 0.9 mmol/L (1.12-1.30); Hematocrit-ABG 29.7 % (36.0-47.0); Hemoglobin (Hb) 9.5 g/dL (12.0-16.0); O2 Tension (PaO2) 137.6 mmHg (80.0-100.0)
[2017-01-29 07:05] LABS: ALV-art Gradient 258.975 (0-20); CO2 Tension 24.5 mmHg (35.0-45.0); Puncture Site LBA; pH, Arterial 7.56 (7.35-7.45)
[2017-01-29] MEDS: Lorazepam 2 MG/ML VIAL SLOW IVP PRN ×3 (08:09→16:51)
[2017-01-29] MEDS: Enoxaparin Sodium 40 MG/0.4 ML SYRINGE SC SCH (08:44)
[2017-01-29] MEDS: Cefepime 2 GM, Syringe 2.5 ML in Sterile Water 10 ML SLOW IVP SCH ×2 (08:44→20:36)
[2017-01-29] MEDS: Sodium Chloride 0.45% 1,000 ML IV SCH (08:54)
[2017-01-29] MEDS: Oseltamivir 6 MG/ML ORAL SUSP PO SCH ×2 (09:14→20:55)
--- NOTE | 2017-01-29 10:04 | RAD ---
AP VIEW CHEST: Date: 01/29/17 HISTORY: Ventilator dependent patient. FINDINGS: Comparison made to previous exam from 01/28/17. AP view of chest demonstrates nasogastric and endotracheal tubes to be in good position. There is kandi vation of the right hemidiaphragm or right-sided pleural effusion. Extensive right lung base opacific ation seen. There is also continued opacification of the right upper lobe and right middle lobes. Rad iographic appearance of the chest is stable and unchanged. IMPRESSION: Well aerated left upper lobe with extensive air space opacities in the right lung and possible areas of patchy density in the left lower lobe. Nasogastric and endotracheal tubes are in good position. POS: [facility]
--- NOTE | 2017-01-29 20:34 | PDOC.PN ---
- Subjective Encounter Start Date: 01/29/17 Encounter Start Time: 14:00 -: non-verbal Patient seen and examined. on [facility] Vent/pressors - Objective Resuscitation Status: Resuscitation Status FULL:Full Resuscitation MAR Reviewed: Yes Vital Signs & Weight: Vital Signs (12 hours) Temp Pulse Resp BP Pulse Ox 01/29/17 19:59 100.1 F H 01/29/17 19:56 30 H 01/29/17 19:37 100.1 F H 96 30 H 92 L 01/29/17 18:23 96 30 H 92 L 01/29/17 18:00 30 H 01/29/17 16:00 98.5 F 30 H 01/29/17 15:19 95 01/29/17 14:00 30 H 01/29/17 12:00 98.0 F 30 H 01/29/17 11:27 93 89/58 L 01/29/17 10:00 33 H 01/29/17 09:14 97 Weight Admit Weight 414 lb Weight 409 lb 13.44 oz Most Recent Monitor Data Heart Rate from ECG 100 NIBP 119/80 NIBP BP-Mean 92 Respiration from ECG 16 SpO2 92 I&O: 01/28/17 01/29/17 01/30/17 06:59 06:59 06:59 Intake Total 4054.3 8955.6 1722 Output Total 615 2690 585 Balance 3439.3 6265.6 1137 Result Diagrams: 01/29/17 04:00 01/30/17 03:45 Additional Labs: Accuchecks 01/27/17 21:06 POC Glucose 170 H Radiology Reviewed by me: Yes (CXR - B/L airspace disease) EKG Reviewed by me: Yes (Tele SR) Phys Exam - Physical Examination Pt is intubated/Sedated on Vent - on 2 pressors Respiratory: no wheezing Coarse BS B/L, Symmetrical, Endotracheal tube + Cardiovascular: RRR, no significant murmur, no rub no heaves Gastrointestinal: soft, no distention, positive bowel sounds no guarding Musculoskeletal: no edema Neuro/Pscyh - Cannot assess due to sedation Dx/Plan - Plan fletcher catheter, continue antibiotics, respiratory therapy, DVT proph w/lovenox, DVT proph w/SCDs IMPRESSION: 1. Acute hypoxic/hypercapnic Resp failure on [facility] Vent 2. Severe sepsis with acute organ dysfunction/Septic shock due to Pneumococcal Pneumonia/Recent Flu A 3. FREDY with Abn LFTs due to sepsis 4. Metabolic acidosis/Lactic acidosis 5. DM2/HTN/Morbid Obesity BMI 68.2/Anxiety-Depression PLAN: * On Cefepime/Clindamycin/Tamiflu * Critical care following * [facility] * AM labs * Cont to monitor * Cont current meds as below * on IV NS @ 50 Review of Systems - Review of Systems Other: Cannot obtain due to sedation - Medications/Allergies Allergies/Adverse Reactions: Allergies Allergy/AdvReac Type Severity Reaction Status Date / Time No Allergy Information Allergy Unverified 01/27/17 19:32 Available Medications: Current Medications Acetaminophen (Tylenol) 650 mg AK Q4H PRN PRN Reason: Headache/Fever or Pain Albuterol Sulfate (Ventolin) 2.5 mg NEB Q2H PRN PRN Reason: Wheezing Albuterol/Ipratropium (Duoneb) 3 ml NEB [id number] ALICIA Last Admin: 01/29/17 18:23 Dose: 3 ml Clindamycin Phosphate/Dextrose (Cleocin) 900 mg IVPB 0500,1300,2100 ALICIA Last Admin: 01/29/17 13:04 Dose: 900 mg Dextrose/Water (Dextrose 50%) 25 gm IVP PRN PRN PRN Reason: HYPOGLYCEMIA PROTOCOL Enoxaparin Sodium (Lovenox) 40 mg SC 0900 [facility] Last Admin: 01/29/17 08:44 Dose: 40 mg Glucagon (Glucagon) 1 mg IM PRN PRN PRN Reason: HYPOGLYCEMIA PROTOCOL Norepinephrine Bitartrate (Levophed) 250 mls @ 0 mls/hr IVPB INF ALICIA; Titrate PRN Reason: Protocol Last Admin: 01/28/17 16:05 Dose: 250 mls Fentanyl (Fentanyl Cadd) 250 mls @ 0 mls/hr IVPB INF ALCIIA; Titrate PRN Reason: Protocol Stop: 02/26/17 20:40 Last Admin: 01/29/17 14:51 Dose: 250 mls Fentanyl Citrate (Fentanyl Bolus) 250 mls @ 0 mls/hr IVPB PRN PRN; As Directed PRN Reason: Breakthrough pain Stop: 02/26/17 20:40 Cefepime HCl 2 gm/ Syringe 2.5 (ml/ Sterile Water) 12.5 mls @ 150 mls/hr SLOW IVP 0900,2100 [facility] Last Admin: 01/29/17 08:44 Dose: 12.5 mls Dextrose/Water (D5w) 1,000 mls @ 0 mls/hr IV INF PRN; As Directed PRN Reason: HYPOGLYCEMIA PROTOCOL Sodium Chloride (1/2 Normal Saline) 1,000 mls @ 50 mls/hr IV .Q20H [facility] Last Admin: 01/29/17 08:54 Dose: 1,000 mls Insulin Human Lispro (Humalog) 0 units SC .MODERATE SLIDING SC PRN; Protocol PRN Reason: MODERATE SLIDING SCALE Last Admin: 01/29/17 15:45 Dose: 8 unit Lorazepam (Ativan) 2 mg SLOW IVP Q2H PRN PRN Reason: Anxiety to achieve Hinojosa 2-3 Stop: 02/26/17 20:40 Last Admin: 01/29/17 16:51 Dose: 2 mg Methylprednisolone Sodium Succinate (Solu-Medrol) 20 mg IVP 0400,1000,1600, 2200 [facility] Last Admin: 01/29/17 15:31 Dose: 20 mg Morphine Sulfate (Morphine) 2 mg IVP Q2H PRN PRN Reason: Breakthrough pain Stop: 02/26/17 20:43 Discontinue Previous Narcotic Pain Medications And Benzodiazepines 1 each FS .ONE [facility] Stop: 02/26/17 20:40 Oseltamivir Phosphate (Tamiflu) 75 mg PO BID [facility] Stop: 02/01/17 09:01 Last Admin: 01/29/17 09:14 Dose: 75 mg Propofol (Diprivan) 1,000 mg IV INF PRN; Protocol PRN Reason: TO ACHIEVE HINOJOSA SCORE 2-3 Stop: 02/26/17 20:40 Sodium Chloride (Flush - Normal Saline) 10 ml IVF PRN PRN PRN Reason: Saline Flush Vecuronium [place] (Norcuron) 10 mg IV Q1H PRN PRN Reason: FOR MUSCLE PARALYSIS Last Admin: 01/29/17 15:55 Dose: 10 mg
[2017-01-29] MEDS: Norepinephrine 8 MG/0.9% NS 250 ML IVPB SCH (20:38)
[2017-01-30] MEDS: Vecuronium 10 MG VIAL IV PRN ×7 (02:18→23:40)
[2017-01-30] MEDS: Acetaminophen 650 MG Suppository PR PRN (03:18)
[2017-01-30] MEDS: HumaLOG 300 UNITS/3 ML VIAL SC PRN (03:25)
[2017-01-30] MEDS: Clindamycin/D5W 900 mg/50 ml Premix Bag IVPB SCH ×3 (05:13→21:15)
[2017-01-30] MEDS: Sodium Chloride 0.45% 1,000 ML IV SCH (05:24)
[2017-01-30 05:50] LABS: ALT (SGPT) 496 U/L (8-55); AST (SGOT) 1558 U/L (5-34); Albumin 3.3 g/dL (3.5-5.0); Alkaline Phosphatase 63 U/L (40-150); Anion Gap 18 mmol/L (10-20); BUN (Urea Nitrogen) 54 mg/dL (7.0-18.7); Bilirubin, Total 1.3 mg/dL (0.2-1.2); Calc. Creatinine Clearance 101 mL/min (70-130); Carbon Dioxide 27 mmol/L (22-29); Chloride 97 mmol/L (98-107); Estimated GFR-MDRD 24; Globulin 2.9 g/dL (2.4-3.5); Glucose 334 mg/dL (70-105); Protein, Total 6.2 g/dL (6.0-8.3); Sodium 138 mmol/L (136-145)
[2017-01-30 06:58] LABS: Band 19 % (5-11); Hemoglobin 11.8 g/dL (12.0-16.0); Lymphocytes 28 % (21-51); MDiff Complete? YES; Mean Corpuscular HGB CONC 33.3 g/dL (32.0-36.0); Mean Corpuscular Hemoglobin 31.7 pg (27.0-31.0); Mean Corpuscular Volume 95.3 fl (81.0-99.0); Mean Platelet Volume 9.4 fL (7.4-10.4); Monocytes 11 % (0-10); Neutrophil 42 % (42-75); PLT Morphology Comment Appears Adequate; Platelet Count 167 thou/uL (130-400); RBC Distribution Width 13.3 % (11.5-14.5); Red Blood Cell (RBC) Count 3.73 mill/uL (4.20-5.40); White Blood Cell (WBC) Count 8.9 thou/uL (4.8-10.8)
--- NOTE | 2017-01-30 07:21 | PRG ---
DATE OF SERVICE: 01/29/2017 SUBJECTIVE: Ms. Andrade's pressor requirements are dropping. OBJECTIVE: GENERAL: She is still sedated for ventilation. VITAL SIGNS: Respiratory rate is 30, oximetry is in the 90s, blood pressure 119/80. LUNGS: Remarkable for distant breath sounds on the right. Left lung is clear. HEART: Regular rhythm. ABDOMEN: Soft. EXTREMITIES: Very large extremities without asymmetry. LABORATORY DATA: White count 4.1, hemoglobin 9.3, platelets 123, band count has gone from 40-29%. S odium 137, potassium 3.4, chloride 98, bicarbonate 25, BUN 34, creatinine 1.95, yesterday was 2.82, g lucose is drifting upwards, insulin has been started. Liver enzymes were mildly elevated with an AST of 466, ALT of 113, bilirubin of 1.7. IMPRESSION: 1. Pneumonia with sepsis. Blood cultures are growing Streptococcus pneumoniae and Coagulase-negativ e staphylococcus. Streptococcus pneumoniae I suspect is the pathogen. The other blood culture is ne gative. 2. Status post influenza, all 4 of her kids have flu. 3. Respiratory failure. 4. Probable sleep apnea. 5. Morbid obesity. 6. Probable fatty infiltration of the liver with superimposed shock liver. 7. Acute kidney injury most likely associated with her sepsis. 8. Hypokalemia. 9. Mild hypoalbuminemia with mild proteinuria on admission. PLAN: Continue antimicrobial therapy, weaning of pressors, IV fluids. The bicarbonate drip can be d iscontinued. She will continue the mechanical ventilation and rate will be decreased. Her IV fluid s will be decreased. Critical care time was 30 minutes.
[2017-01-30] MEDS ORDERED: Dextrose 5% in Water 1,000 ML IV PRN (09:18)
[2017-01-30] MEDS ORDERED: Dextrose 50% Abboject 50 ML SYRINGE SLOW IVP PRN (09:18)
[2017-01-30 09:46] LABS: ALV-art Gradient 265.025 (0-20); Actual Bicarbonate (HCO3a) 23.6 mEq/L (22-26); Base Excess (BEa) 0.4 mEq/L (0 (+/-) 2.5); CO2 Tension 33.1 mmHg (35.0-45.0); Hematocrit-ABG 36.3 % (36.0-47.0); Hemoglobin (Hb) 11.4 g/dL (12.0-16.0); O2 Tension (PaO2) 53.6 mmHg (80.0-100.0); Puncture Site RRA; pH, Arterial 7.47 (7.35-7.45)
--- NOTE | 2017-01-30 09:47 | PRG ---
DATE OF SERVICE: 01/30/2017 I was called to see Ms. Andrade for a large right-sided pneumothorax this morning. She has had diffi culty with hypoxia and decrease tidal volumes overnight. She is currently heavily sedated and paraly zed and cannot interact with me. PHYSICAL EXAMINATION: VITAL SIGNS: Temperature 100.5 with a T-max of 103.2, pulse 111, blood pressure 149/116, 24 hour int taniya 2610, output 1035. HEENT: Pupils do react. Sclerae are anicteric. Oropharynx clear. NECK: No JVD. LUNGS: Almost near absent breath sounds on the right, clear on the left. CARDIOVASCULAR: S1, S2, slightly tachycardic. No murmur. ABDOMEN: Obese, soft and nontender. EXTREMITIES: No skin lesions, some edema in her right arm. LABORATORY DATA: White blood cell count 8.9, hematocrit 35.5, platelet count 167, pH 7.56, pCO2 of 2 4, PO2 of 137 - that was yesterday, I am waiting for today's blood gas. Sodium 138, potassium 4, chl oride 97, CO2 of 27, BUN 54, creatinine 2.3, glucose 334, AST 1558, ALT 496. Cultures are growing pn eumococcus out of the blood. ASSESSMENT: 1. Influenza. 2. Pneumococcal pneumonia with sepsis. 3. Large right-sided pneumothorax. 4. Renal insufficiency. 5. Elevated liver function tests, indicative of shock liver. PLAN: 1. The patient will continue on broad spectrum IV antibiotics. 2. Small bore chest tube has been placed, to be followed by a larger chest tube later today by Dr. Nicci tolbert. 3. Continue vasopressors as needed. 4. Sedation and paralysis. 5. Adjust mechanical ventilation depending on her blood gas. The above encompassed 35 minutes critical care time.
[2017-01-30] MEDS ORDERED: Lidocaine 1% (PF) 30 ML VIAL ONE (09:54)
--- NOTE | 2017-01-30 09:59 | OP ---
DATE OF PROCEDURE: 01/30/2017 SURGEON: Dr. Barry Barry I was notified by the nurse that the radiologist had read a large pneumothorax in the patient's right side on her morning x-ray today. This is the first time I have seen the patient. She has been on mechanical ventilation for pneumococ cesar pneumonia. She has been hypoxic overnight with lower tidal volumes on the bilevel. I did confir m on x-ray she had a large pneumothorax on the right. I elected to place a right-sided second, third space anterior small caliber chest tube under local anesthesia. This was done without complications and resulted in immediate air evacuation and improvement in tidal volumes and the SaO2. I have consulted Dr. Roberson for performance of a large chest tube on the right. That will take place later this morning.
[2017-01-30] MEDS: Enoxaparin Sodium 40 MG/0.4 ML SYRINGE SC SCH (10:07)
[2017-01-30] MEDS: Saccharomyces boulardii 250 MG CAP PO SCH (10:07)
[2017-01-30] MEDS: Oseltamivir 6 MG/ML ORAL SUSP PO SCH ×2 (10:07→21:17)
--- NOTE | 2017-01-30 10:15 | CON ---
DATE OF CONSULTATION: 01/30/2017 REASON FOR CONSULTATION: Evaluation for right tube thoracostomy. PERTINENT HISTORY: The patient is a 31-year-old female who presented 3 days ago with presumed pneumococcal pneumonia and sepsis. She required vasopressor support and intubation. This morning chest x-ray revealed a complete right pneumothorax. Small pneumothorax catheter with a Heimlich valve was placed by Dr. Barry. Impression was that she needed a large bore tube for ongoing management. Right tube thoracostomy was subsequently requested. PAST MEDICAL HISTORY: 1. Morbid obesity. 2. Diabetes. 3. Hypertension. 4. Dyslipidemia. 5. Anxiety/depression disorder. PAST SURGICAL HISTORY: 1. BTL. 2. Cholecystectomy. 3. x4. 4. Tonsillectomy. ALLERGIES: KEFLEX. SOCIAL HISTORY: Non-smoker. Nondrinker. REVIEW OF SYSTEMS: Significant for renal insufficiency noted on this visit. No prior history of reported stroke, heart disease, or lung disease. LABORATORY AND X-RAY: Hemoglobin 11.8. Platelet count 167,000. Creatinine 2.4. CURRENT MEDICATIONS: Cefepime, clindamycin, Lovenox, insulin sliding scale, methylprednisolone, NPH insulin, Tamiflu, and multiple p.r.n. medications. She is currently off vasopressor support. PHYSICAL EXAMINATION: VITAL SIGNS: Height 5 feet 2 inches, weight 412 pounds, blood pressure 106/60, heart rate 108, temperature 102.2. GENERAL: Morbidly obese female on ventilator with both endotracheal tube in place as well as NG tube. HEENT: Unremarkable. NECK: Unable to assess for JVD or adenopathy. LUNGS: Lungs with diminished breath sounds on the right. HEART: Sinus tachycardia without murmur or rub. ABDOMEN: Soft and nondistended. EXTREMITIES: Without appreciable edema. VASCULAR: Palpable radial and dorsalis pedis pulses bilaterally. NEUROLOGIC: Unable to assess as the patient is sedated. IMPRESSION: Complete right pneumothorax. RECOMMENDATIONS: Right tube thoracostomy. Indications, benefits, alternatives, and risks were explained over the phone to the patient's mother who will provide informed consent. HEMA
[2017-01-30] MEDS: Cefepime 2 GM, Syringe 2.5 ML in Sterile Water 10 ML SLOW IVP SCH ×2 (10:25→21:14)
[2017-01-30] MEDS: Insulin Regular 300 UNITS/3 ML VIAL SC PRN ×3 (10:42→21:24)
--- NOTE | 2017-01-30 10:42 | RAD ---
AP VIEW CHEST: Date: 01/30/17 HISTORY: Ventilator dependent patient. FINDINGS: Comparison made to previous exam from 01/29/17. AP view of chest demonstrates nasogastric and endotracheal tubes to be in place. There is complete co llapse of the right lung. There is a large right-sided pneumothorax with the right lung completely co llapsed medially. This may represent a possible tension pneumothorax. The mediastinum is somewhat dev iated from right to left. There is some air space opacity seen in the left lung. IMPRESSION: Complete right lung collapse with large pneumothorax, possible tension. Findings called to patient's nurse, David, in the CCU at 0846 hours on 01/30/17. David is to convey t hese findings to Dr. Barry immediately. CODE CR. POS: [facility]
[2017-01-30] MEDS: NPH, Human Insulin Isophane 300 UNIT/3 ML VIAL SC SCH ×2 (11:15→21:23)
--- NOTE | 2017-01-30 11:57 | RAD ---
AP VIEW CHEST: Date: 01/30/17 HISTORY: Ventilator dependent patient, post chest tube placement. FINDINGS: Comparison made to previous exam from 01/30/17. AP view of chest demonstrates nasogastric and endotracheal tubes again seen. There has been placement of a right-sided large caliber chest tube. The right lung has reexpanded. The previously noted large right-sided pneumothorax has been evacuated. The left lung demonstrates improved aeration. IMPRESSION: Placement of a right-sided chest tube and reexpansion of the collapsed right lung. POS: [facility]
--- NOTE | 2017-01-30 12:01 | RAD ---
AP VIEW CHEST: Date: 01/30/17 Time: 0939 hours HISTORY: Tube position placement. FINDINGS: Comparison made to previous exam from 0934 hours same date. AP view of chest demonstrates nasogastric and endotracheal tubes to be in place. The right-sided ches t tube has been slightly repositioned. Again, no evidence of right-sided pneumothorax seen. There is some edema in the mid right lung compatible with right lung reexpansion and secondary pulmonary edema . IMPRESSION: Repositioning of right-sided chest tube. Otherwise, unchanged. POS: [facility]
--- NOTE | 2017-01-30 12:27 | EKG ---
Test Reason : Blood Pressure : / mmHG Vent. Rate : 116 BPM Atrial Rate : 116 BPM P-R Int : 130 ms QRS Dur : 090 ms QT Int : 336 ms P-R-T Axes : 062 052 042 degrees QTc Int : [address] elevation, consider early repolarization, pericarditis, or injury Abnormal ECG Confirmed by GIN ESTES ([id number]) on 01/30/2017 12:27:42 PM Referred By: Confirmed By:GIN ESTES
--- NOTE | 2017-01-30 14:24 | OP ---
PREOPERATIVE DIAGNOSIS: Right pneumothorax. POSTOPERATIVE DIAGNOSIS: Right pneumothorax. DUMB WAITER OPERATOR: Young Roberson M.D. ANESTHESIA: Sedation and paralytic on the ventilator and local at proposed tube insertion site. PROCEDURE PERFORMED: Right tube thoracostomy (32-Peruvian straight). FINDINGS: The right lung appeared free within the pleural cavity. Approximately 600 mL of bloody pleural fluid. DESCRIPTION OF PROCEDURE: Right tube thoracostomy was performed at the bedside in the ICU. Informed consent was provided by the patient's mother. The patient was prepped and draped in the usual sterile fashion. At the proposed tube insertion site, local anesthesia was achieved with 1% Xylocaine. A small stab incision was made. Dissection was carried down to the chest wall. Pleural space was entered without difficulty. Digital sweep revealed no obvious adhesions. A 36-Peruvian straight chest tube was placed. Tube did retrieve approximately 600 mL of bloody pleural fluid. The tube was connected to pleurovac suction. The tube was secured with 0 silk sutures. Dressing was applied. Chest x-ray was obtained. Previously placed small pneumothorax catheter was removed. The patient appeared to tolerate the procedure without evident problems. [facility]
--- NOTE | 2017-01-30 20:12 | PDOC.PN ---
- Subjective Encounter Start Date: 01/30/17 Encounter Start Time: 13:00 Patient seen and examined. On [facility] Vent - Off pressors. No overnight events. Chest tube placed for Pneumothorax - Objective Resuscitation Status: Resuscitation Status FULL:Full Resuscitation MAR Reviewed: Yes Vital Signs & Weight: Vital Signs (12 hours) Temp Pulse Resp BP Pulse Ox 01/30/17 19:57 99.0 F 01/30/17 19:56 25 H 01/30/17 18:29 86 25 H 98 01/30/17 18:00 25 H 01/30/17 16:00 25 H 01/30/17 15:55 99.6 F 01/30/17 15:12 83 113/75 01/30/17 14:00 25 H 01/30/17 12:00 101.3 F H 25 H 01/30/17 10:47 105 H 122/74 01/30/17 10:00 25 H Weight Admit Weight 414 lb Weight 412 lb 8 oz Most Recent Monitor Data Heart Rate from ECG 88 NIBP 125/82 NIBP BP-Mean 99 Respiration from ECG 25 SpO2 98 I&O: 01/29/17 01/30/17 01/31/17 06:59 06:59 06:59 Intake Total 8955.6 2610 947.4 Output Total 2690 1035 2070 Balance 6265.6 1575 -1122.6 Result Diagrams: 01/31/17 04:00 01/31/17 04:00 Additional Labs: Accuchecks 01/30/17 01/30/17 01/30/17 15:46 10:38 03:11 POC Glucose 385 H 344 H 328 H 01/29/17 01/29/17 01/29/17 21:41 15:45 03:52 POC Glucose 304 H 323 H 382 H 01/28/17 22:03 POC Glucose 370 H Phys Exam - [facility] Respiratory: no wheezing Coarse BS B/L Cardiovascular: RRR, no rub Gastrointestinal: soft, non-tender, positive bowel sounds Musculoskeletal: no edema Neuro/Psych - Cannot assess due to sedation Dx/Plan - Plan DVT proph w/lovenox, DVT proph w/SCDs IMPRESSION: 1. Acute hypoxic/hypercapnic Resp [facility] 2. Severe sepsis with acute organ dysfunction/Septic shock due to Pneumococcal Pneumonia/Recent Flu A 3. FREDY with Abn LFTs due to sepsis 4. Pneumothorax s/p chest tube 5. Metabolic acidosis/Lactic acidosis 6. DM2/HTN/Morbid Obesity BMI 68.2/Anxiety-Depression PLAN: * Cont Cefepime/Clindamycin/Tamiflu * On Mech Vent * AM labs * Cont to monitor * Cont current meds as below * Critical care following Review of Systems - Review of Systems Other: Cannot obtain due to sedation - Medications/Allergies Allergies/Adverse Reactions: Allergies Allergy/AdvReac Type Severity Reaction Status Date / Time No Allergy Information Allergy Unverified 01/27/17 19:32 Available Medications: Current Medications Acetaminophen (Tylenol) 650 mg [place] Q4H PRN PRN Reason: Headache/Fever or Pain Last Admin: 01/30/17 03:18 Dose: 650 mg Albuterol Sulfate (Ventolin) 2.5 mg NEB Q2H PRN PRN Reason: Wheezing Albuterol/Ipratropium (Duoneb) 3 ml NEB [id number] ALICIA Last Admin: 01/30/17 18:29 Dose: 3 ml Clindamycin Phosphate/Dextrose (Cleocin) 900 mg IVPB 0500,1300,2100 [facility] Last Admin: 01/30/17 12:36 Dose: 900 mg Dextrose/Water (Dextrose 50%) 25 gm SLOW IVP PRN PRN PRN Reason: Hypoglycemia Enoxaparin Sodium (Lovenox) 40 mg SC 0900 [facility] Last Admin: 01/30/17 10:07 Dose: 40 mg Famotidine (Pepcid) 20 mg PER TUBE BID ALICIA Glucagon (Glucagon) 1 mg IM PRN PRN PRN Reason: Hypoglycemia Norepinephrine Bitartrate (Levophed) 250 mls @ 0 mls/hr IVPB INF ALICIA; Titrate PRN Reason: Protocol Last Admin: 01/29/17 20:38 Dose: 250 mls Fentanyl (Fentanyl Cadd) 250 mls @ 0 mls/hr IVPB INF ALICIA; Titrate PRN Reason: Protocol Stop: 02/26/17 20:40 Last Admin: 01/29/17 14:51 Dose: 250 mls Fentanyl Citrate (Fentanyl Bolus) 250 mls @ 0 mls/hr IVPB PRN PRN; As Directed PRN Reason: Breakthrough pain Stop: 02/26/17 20:40 Cefepime HCl 2 gm/ Syringe 2.5 (ml/ Sterile Water) 12.5 mls @ 150 mls/hr SLOW IVP 0900,2100 [facility] Last Admin: 01/30/17 10:25 Dose: 12.5 mls Sodium Chloride (1/2 Normal Saline) 1,000 mls @ 50 mls/hr IV .Q20H [facility] Last Admin: 01/30/17 05:24 Dose: 1,000 mls Dextrose/Water (D5w) 1,000 mls @ 0 mls/hr IV .Q0M PRN; As Directed PRN Reason: Hypoglycemia Insulin Human NPH (Humulin N) 30 unit SC Q12HR [facility] Last Admin: 01/30/17 11:15 Dose: 30 units Insulin Human Regular (Humulin R) 0 units SC .AGGRESSIVE SLIDING PRN PRN Reason: Aggressive Sliding Scale Last Admin: 01/30/17 15:50 Dose: 13 unit Lorazepam (Ativan) 2 mg SLOW IVP Q2H PRN PRN Reason: Anxiety to achieve Hinojosa 2-3 Stop: 02/26/17 20:40 Last Admin: 01/29/17 16:51 Dose: 2 mg Methylprednisolone Sodium Succinate (Solu-Medrol) 20 mg IVP 0400,1000,1600, 2200 [facility] Last Admin: 01/30/17 15:50 Dose: 20 mg Morphine Sulfate (Morphine) 2 mg IVP Q2H PRN PRN Reason: Breakthrough pain Stop: 02/26/17 20:43 Discontinue Previous Narcotic Pain Medications And Benzodiazepines 1 each FS .ONE [facility] Stop: 02/26/17 20:40 Oseltamivir Phosphate (Tamiflu) 75 mg PO BID [facility] Stop: 02/01/17 09:01 Last Admin: 01/30/17 10:07 Dose: 75 mg Propofol (Diprivan) 1,000 mg IV INF PRN; Protocol PRN Reason: TO ACHIEVE HINOJOSA SCORE 2-3 Stop: 02/26/17 20:40 Saccharomyces Boulardii (Florastor) 250 mg PO DAILY [facility] Last Admin: 01/30/17 10:07 Dose: 250 mg Sodium Chloride (Flush - Normal Saline) 10 ml IVF PRN PRN PRN Reason: Saline Flush Last Admin: 01/30/17 10:07 Dose: 10 ml Vecuronium [place] (Norcuron) 10 mg IV Q1H PRN PRN Reason: FOR MUSCLE PARALYSIS Last Admin: 01/30/17 17:57 Dose: 10 mg
[2017-01-30] MEDS ORDERED: Famotidine 20 MG TAB PER TUBE SCH (21:00)
[2017-01-30] MEDS: Famotidine 20 MG TAB PER TUBE SCH (21:16)
[2017-01-31] MEDS: Sodium Chloride 0.45% 1,000 ML IV SCH ×2 (01:00→20:08)
[2017-01-31] MEDS: Lorazepam 2 MG/ML VIAL SLOW IVP PRN ×5 (04:11→20:38)
[2017-01-31] MEDS: Vecuronium 10 MG VIAL IV PRN ×6 (04:11→20:39)
[2017-01-31] MEDS: Insulin Regular 300 UNITS/3 ML VIAL SC PRN ×5 (04:18→19:43)
[2017-01-31] MEDS: Clindamycin/D5W 900 mg/50 ml Premix Bag IVPB SCH ×3 (05:12→20:07)
[2017-01-31 06:32] LABS: Band 5 % (5-11); Hemoglobin 11.3 g/dL (12.0-16.0); Lymphocytes 17 % (21-51); MDiff Complete? YES; Mean Corpuscular HGB CONC 32.4 g/dL (32.0-36.0); Mean Corpuscular Hemoglobin 30.8 pg (27.0-31.0); Mean Corpuscular Volume 95.2 fl (81.0-99.0); Mean Platelet Volume 10.4 fL (7.4-10.4); Metamyelocyte 1 % (0-0); Monocytes 7 % (0-10); Neutrophil 70 % (42-75); Platelet Count 146 thou/uL (130-400); RBC Distribution Width 12.8 % (11.5-14.5); Red Blood Cell (RBC) Count 3.66 mill/uL (4.20-5.40); White Blood Cell (WBC) Count 8.1 thou/uL (4.8-10.8)
[2017-01-31 06:34] LABS: Lactic Acid 2.7 mmol/L (0.5-2.2)
[2017-01-31 06:40] LABS: ALT (SGPT) 419 U/L (8-55); AST (SGOT) 482 U/L (5-34); Alkaline Phosphatase 53 U/L (40-150); Anion Gap 18 mmol/L (10-20); BUN (Urea Nitrogen) 65 mg/dL (7.0-18.7); Bilirubin, Total 1.1 mg/dL (0.2-1.2); CK (CPK) 477 U/L (29-168); Calc. Creatinine Clearance 128 mL/min (70-130); Calcium 8.5 mg/dL (7.8-10.44); Carbon Dioxide 28 mmol/L (22-29); Chloride 99 mmol/L (98-107); Estimated GFR-MDRD 31; Glucose 532 mg/dL (70-105); Magnesium 2.6 mg/dL (1.6-2.6); Phosphorus 3.3 mg/dL (2.3-4.7); Potassium 3.5 mmol/L (3.5-5.1); Sodium 141 mmol/L (136-145)
[2017-01-31] MEDS: Saccharomyces boulardii 250 MG CAP PO SCH (08:00)
[2017-01-31] MEDS: Oseltamivir 6 MG/ML ORAL SUSP PO SCH ×2 (08:00→21:32)
[2017-01-31] MEDS: Enoxaparin Sodium 40 MG/0.4 ML SYRINGE SC SCH (08:01)
[2017-01-31] MEDS: Famotidine 20 MG TAB PER TUBE SCH ×2 (08:01→20:07)
[2017-01-31] MEDS: NPH, Human Insulin Isophane 300 UNIT/3 ML VIAL SC SCH ×2 (08:02→20:07)
[2017-01-31] MEDS: Cefepime 2 GM, Syringe 2.5 ML in Sterile Water 10 ML SLOW IVP SCH ×2 (08:16→20:06)
--- NOTE | 2017-01-31 08:29 | RAD ---
SINGLE VIEW CHEST: Date: 01/31/17 COMPARISON: 01/30/17. HISTORY: Ventilated patient with respiratory failure. FINDINGS: Single view of the chest shows an enlarged cardiomediastinal silhouette. The endotracheal tube and NG tube are unchanged in position. There has been partial reexpansion of the right lung with a small to moderate right pneumothorax still present. The right chest tube is in good position. IMPRESSION: Partial reexpansion of the right lung. POS: [facility]
--- NOTE | 2017-01-31 09:52 | PRG ---
DATE OF SERVICE: 01/31/2017 She is intubated on the vent, sedated. PHYSICAL EXAMINATION: VITAL SIGNS: Blood pressure 146/106, respirations 16, temperature 98. Chest x-ray shows complete re expansion of the right lung, spontaneous pneumothorax. Sats are 90% on bilevel ventilation, I's and O's have been 2213 in, 3730 out. CHEST: Chest reveals decreased breath sounds without any wheezing. CARDIAC: Normal S1, S2. ABDOMEN: Soft, no masses. LABORATORY DATA: White count 8, H&H 8 and 34, platelet count 46, 70 segs, 5 bands. Creatinine 1.8, BUN 65. Glucose 490, elevated AST and ALT. IMPRESSION: 1. Respiratory failure. 2. Right-sided spontaneous pneumothorax. 3. Morbidly obese. 4. Renal failure. 5. Diabetes. PLAN: She is not weanable at this stage. Vent is being adjusted. Continue Tamiflu and broad-spectr um antibiotics. Nutrition and PT. One-half hour critical care time.
[2017-01-31 09:57] LABS: Actual Bicarbonate (HCO3a) 24.1 mEq/L (22-26); Base Excess (BEa) 0.2 mEq/L (0 (+/-) 2.5); CO2 Tension 36.7 mmHg (35.0-45.0); Calcium, Ionized 1.1 mmol/L (1.12-1.30); Hematocrit-ABG 34.4 % (36.0-47.0); Hemoglobin (Hb) 10.9 g/dL (12.0-16.0); pH, Arterial 7.44 (7.35-7.45)
[2017-01-31 10:17] LABS: ALV-art Gradient 235.625 (0-20); Puncture Site LRA
--- NOTE | 2017-01-31 21:13 | PDOC.PN ---
- Subjective Encounter Start Date: 01/31/17 Encounter Start Time: 14:00 Patient seen and examined. on Mech Vent. No overnight events - Objective Resuscitation Status: Resuscitation Status FULL:Full Resuscitation MAR Reviewed: Yes Vital Signs & Weight: Vital Signs (12 hours) Temp Pulse Resp BP Pulse Ox 01/31/17 20:00 100.6 F H 01/31/17 19:47 100.6 F H 110 H 20 94 L 01/31/17 19:40 20 01/31/17 18:54 107 H 20 95 01/31/17 18:00 25 H 01/31/17 16:00 99.2 F 20 01/31/17 14:00 33 H 01/31/17 13:00 99.3 F 01/31/17 12:27 87 131/82 01/31/17 12:25 90 20 100 01/31/17 12:00 98.9 F 20 01/31/17 10:00 25 H Weight Admit Weight 414 lb Weight 410 lb 0.64 oz Most Recent Monitor Data Heart Rate from ECG 110 NIBP 132/85 NIBP BP-Mean 101 Respiration from ECG 20 SpO2 96 I&O: 01/30/17 01/31/17 02/01/17 06:59 06:59 06:59 Intake Total 2610 2213.7 1197.2 Output Total 1035 3730 2550 Balance 1575 -1516.3 -1352.8 Result Diagrams: 01/31/17 04:00 01/31/17 04:00 Additional Labs: Accuchecks 01/31/17 01/31/17 01/31/17 12:16 08:00 04:00 POC Glucose 511 H 523 H 490 H 01/31/17 01/30/17 00:24 21:22 POC Glucose 444 H 449 H EKG Reviewed by me: Yes (Tele SR) Phys Exam - Physical Examination Constitutional: NAD on Mech Vent, sedated Respiratory: no wheezing Rt chest tube +, Coarse BS b/l Cardiovascular: RRR, no rub Gastrointestinal: soft, positive bowel sounds Musculoskeletal: no edema Neuro/Psych - Cannot assess due to sedation Dx/Plan - Plan DVT proph w/lovenox, DVT proph w/SCDs IMPRESSION: 1. Acute hypoxic/hypercapnic Resp failure on Mech Vent 2. Severe sepsis with acute organ dysfunction/Septic shock due to Pneumococcal Pneumonia/Recent Flu A 3. FREDY with Abn LFTs due to sepsis 4. Metabolic acidosis/Lactic acidosis 5. Pneumothorax s/p chest tube 6. DM2/HTN/Morbid Obesity BMI 68.2/Anxiety-Depression PLAN: * On Mech Vent * Steroid taper per Critical care * Cont Cefepime/Clindamycin/Tamiflu * AM labs * Cont to monitor * Cont current meds as below Review of Systems - Review of Systems Other: Cannot obtain due to sedation - Medications/Allergies Allergies/Adverse Reactions: Allergies Allergy/AdvReac Type Severity Reaction Status Date / Time No Allergy Information Allergy Unverified 01/27/17 19:32 Available Medications: Current Medications Acetaminophen (Tylenol) 650 mg IN Q4H PRN PRN Reason: Headache/Fever or Pain Last Admin: 01/30/17 03:18 Dose: 650 mg Albuterol Sulfate (Ventolin) 2.5 mg NEB Q2H PRN PRN Reason: Wheezing Albuterol/Ipratropium (Duoneb) 3 ml NEB [id number] [facility] Last Admin: 01/31/17 18:54 Dose: 3 ml Clindamycin Phosphate/Dextrose (Cleocin) 900 mg IVPB 0500,1300,2100 [facility] Last Admin: 01/31/17 20:07 Dose: 900 mg Dextrose/Water (Dextrose 50%) 25 gm SLOW IVP PRN PRN PRN Reason: Hypoglycemia Enoxaparin Sodium (Lovenox) 40 mg SC 0900 [facility] Last Admin: 01/31/17 08:01 Dose: 40 mg Famotidine (Pepcid) 20 mg PER TUBE BID [facility] Last Admin: 01/31/17 20:07 Dose: 20 mg Glucagon (Glucagon) 1 mg IM PRN PRN PRN Reason: Hypoglycemia Norepinephrine Bitartrate (Levophed) 250 mls @ 0 mls/hr IVPB INF [facility]; Titrate PRN Reason: Protocol Last Admin: 01/29/17 20:38 Dose: 250 mls Fentanyl (Fentanyl Cadd) 250 mls @ 0 mls/hr IVPB INF [facility]; Titrate PRN Reason: Protocol Stop: 02/26/17 20:40 Last Admin: 01/29/17 14:51 Dose: 250 mls Fentanyl Citrate (Fentanyl Bolus) 250 mls @ 0 mls/hr IVPB PRN PRN; As Directed PRN Reason: Breakthrough pain Stop: 02/26/17 20:40 Cefepime HCl 2 gm/ Syringe 2.5 (ml/ Sterile Water) 12.5 mls @ 150 mls/hr SLOW IVP 0900,2100 [facility] Last Admin: 01/31/17 20:06 Dose: 12.5 mls Sodium Chloride (1/2 Normal Saline) 1,000 mls @ 50 mls/hr IV .Q20H [facility] Last Admin: 01/31/17 20:08 Dose: 1,000 mls Dextrose/Water (D5w) 1,000 mls @ 0 mls/hr IV .Q0M PRN; As Directed PRN Reason: Hypoglycemia Insulin Human NPH (Humulin N) 40 unit SC Q12HR [facility] Last Admin: 01/31/17 20:07 Dose: 40 unit Insulin Human Regular (Humulin R) 0 units SC .AGGRESSIVE SLIDING PRN PRN Reason: Aggressive Sliding Scale Last Admin: 01/31/17 19:43 Dose: 13 unit Lorazepam (Ativan) 2 mg SLOW IVP Q2H PRN PRN Reason: Anxiety to achieve Hinojosa 2-3 Stop: 02/26/17 20:40 Last Admin: 01/31/17 20:38 Dose: 2 mg Methylprednisolone Sodium Succinate (Solu-Medrol) 20 mg IVP BID [facility] Last Admin: 01/31/17 20:07 Dose: 20 mg Morphine Sulfate (Morphine) 2 mg IVP Q2H PRN PRN Reason: Breakthrough pain Stop: 02/26/17 20:43 Discontinue Previous Narcotic Pain Medications And Benzodiazepines 1 each FS .ONE [facility] Stop: 02/26/17 20:40 Oseltamivir Phosphate (Tamiflu) 75 mg PO BID [facility] Stop: 02/01/17 09:01 Last Admin: 01/31/17 08:00 Dose: 75 mg Propofol (Diprivan) 1,000 mg IV INF PRN; Protocol PRN Reason: TO ACHIEVE HINOJOSA SCORE 2-3 Stop: 02/26/17 20:40 Saccharomyces Boulardii (Florastor) 250 mg PO DAILY [facility] Last Admin: 01/31/17 08:00 Dose: 250 mg Sodium Chloride (Flush - Normal Saline) 10 ml IVF PRN PRN PRN Reason: Saline Flush Last Admin: 01/31/17 16:26 Dose: 10 ml Vecuronium [place] (Norcuron) 10 mg IV Q1H PRN PRN Reason: FOR MUSCLE PARALYSIS Last Admin: 01/31/17 20:39 Dose: 10 mg
[2017-02-01] MEDS: Insulin Regular 300 UNITS/3 ML VIAL SC PRN ×6 (00:06→20:43)
[2017-02-01] MEDS: Vecuronium 10 MG VIAL IV PRN ×3 (00:35→06:00)
[2017-02-01] MEDS: Morphine 2 MG/ML SYRINGE IVP PRN ×3 (01:34→12:53)
[2017-02-01] MEDS: Lorazepam 2 MG/ML VIAL SLOW IVP PRN ×6 (04:05→22:43)
[2017-02-01] MEDS: Clindamycin/D5W 900 mg/50 ml Premix Bag IVPB SCH ×3 (04:16→21:01)
[2017-02-01 04:38] LABS: ALT (SGPT) 401 U/L (8-55); AST (SGOT) 284 U/L (5-34); Albumin 3.2 g/dL (3.5-5.0); Alkaline Phosphatase 63 U/L (40-150); Anion Gap 13 mmol/L (10-20); BUN (Urea Nitrogen) 64 mg/dL (7.0-18.7); Bilirubin, Total 0.7 mg/dL (0.2-1.2); Calc. Creatinine Clearance 186 mL/min (70-130); Calcium 9.2 mg/dL (7.8-10.44); Carbon Dioxide 31 mmol/L (22-29); Chloride 103 mmol/L (98-107); Estimated GFR-MDRD 48; Globulin 3.4 g/dL (2.4-3.5); Glucose 477 mg/dL (70-105); Potassium 4.3 mmol/L (3.5-5.1); Protein, Total 6.6 g/dL (6.0-8.3); Sodium 143 mmol/L (136-145)
[2017-02-01 05:03] LABS: Anisocytosis SLIGHT = 6-15 cells (100X) (0-5/hpf); Band 7 % (5-11); Hemoglobin 12.3 g/dL (12.0-16.0); Lymphocytes 6 % (21-51); MDiff Complete? YES; Mean Corpuscular HGB CONC 33.3 g/dL (32.0-36.0); Mean Corpuscular Hemoglobin 32.2 pg (27.0-31.0); Mean Corpuscular Volume 96.5 fl (81.0-99.0); Mean Platelet Volume 10.3 fL (7.4-10.4); Monocytes 9 % (0-10); Neutrophil 78 % (42-75); Nucleated RBC 1 % (0); Platelet Count 184 thou/uL (130-400); RBC Distribution Width 12.9 % (11.5-14.5); Red Blood Cell (RBC) Count 3.81 mill/uL (4.20-5.40); White Blood Cell (WBC) Count 13.6 thou/uL (4.8-10.8)
[2017-02-01] MEDS: NPH, Human Insulin Isophane 300 UNIT/3 ML VIAL SC SCH (07:26)
[2017-02-01] MEDS: Saccharomyces boulardii 250 MG CAP PO SCH (07:34)
[2017-02-01] MEDS: Enoxaparin Sodium 40 MG/0.4 ML SYRINGE SC SCH (07:34)
[2017-02-01] MEDS: Famotidine 20 MG TAB PER TUBE SCH ×2 (07:34→21:02)
[2017-02-01 07:41] LABS: Actual Bicarbonate (HCO3a) 30.6 mEq/L (22-26); Base Excess (BEa) 3.6 mEq/L (0 (+/-) 2.5); CO2 Tension 58.7 mmHg (35.0-45.0); Calcium, Ionized 1.2 mmol/L (1.12-1.30); Hematocrit-ABG 33.7 % (36.0-47.0); Hemoglobin (Hb) 11.2 g/dL (12.0-16.0); O2 Tension (PaO2) 81.8 mmHg (80.0-100.0); pH, Arterial 7.34 (7.35-7.45)
[2017-02-01] MEDS: Cefepime 2 GM, Syringe 2.5 ML in Sterile Water 10 ML SLOW IVP SCH ×2 (07:42→21:10)
[2017-02-01 08:03] LABS: ALV-art Gradient 204.825 (0-20); Puncture Site RRA
--- NOTE | 2017-02-01 08:28 | RAD ---
PORTABLE CHEST: 02/01/2017 PROVIDED CLINICAL HISTORY: Respiratory insufficiency. COMPARISON: 01/31/2017 FINDINGS: Evaluation is limited by patient body habitus. Right-sided pneumothorax is less well appreciated on the current examination but appears unchanged with respect to the prior. A right-sided chest tube is again seen in a similar position. An endotracheal tube and an enteric catheter are again noted. IMPRESSION: Significant interval change with respect to the prior examination is not evident. POS: [facility]
[2017-02-01] MEDS ORDERED: Insulin Detemir 100 UNITS/ML 50 UNITS in Pre-Filled Syringe 1 EACH SC SCH (09:45)
[2017-02-01] MEDS: Oseltamivir 6 MG/ML ORAL SUSP PO SCH (09:51)
[2017-02-01] MEDS: fentaNYL Citrate/PF 2,000 MCG in Sodium Chloride 0.9% 60 ML IV SCH (09:51)
[2017-02-01] MEDS: Acetaminophen 650 MG Suppository PR PRN (13:03)
[2017-02-01] MEDS ORDERED: Fluconazole 100 MG TAB PO SCH (13:45)
[2017-02-01] MEDS ORDERED: NPH, Human Insulin Isophane 300 UNIT/3 ML VIAL SC SCH (14:00)
[2017-02-01] MEDS: Vancomycin HCl 25 MG/ML Oral PO SCH ×2 (16:05→21:35)
--- NOTE | 2017-02-01 16:16 | PDOC.PN ---
- Subjective Encounter Start Date: 02/01/17 Encounter Start Time: 14:00 Patient seen and examined. On Mech Vent - Objective Resuscitation Status: Resuscitation Status FULL:Full Resuscitation MAR Reviewed: Yes Vital Signs & Weight: Vital Signs (12 hours) Temp Pulse Resp BP Pulse Ox 02/01/17 15:15 104 H 154/99 H 02/01/17 15:14 104 H 20 99 02/01/17 14:00 98.8 F 28 H 02/01/17 12:12 96 129/85 02/01/17 12:10 96 24 H 99 02/01/17 12:00 101.3 F H 37 H 02/01/17 10:00 25 H 02/01/17 08:00 98.3 F 114 H 20 89 L 02/01/17 07:16 94 128/84 02/01/17 07:15 90 20 99 02/01/17 06:00 98.2 F 20 Weight Admit Weight 414 lb Weight 412 lb 10.88 oz Most Recent Monitor Data Heart Rate from ECG 103 NIBP 154/99 NIBP BP-Mean 113 Respiration from ECG 31 SpO2 100 I&O: 01/31/17 02/01/17 02/02/17 06:59 06:59 06:59 Intake Total 2213.7 2262.2 59 Output Total 3730 4700 1465 Balance -1516.3 -2437.8 -1406 Result Diagrams: 02/01/17 03:30 02/01/17 03:30 Radiology Reviewed by me: Yes (CXR - no sig change) EKG Reviewed by me: Yes (Tele SR) Phys Exam - Physical Examination Pt on Mech Vent/ Sedated Respiratory: no wheezing Coarse BS B/L Cardiovascular: RRR, no rub Gastrointestinal: soft, positive bowel sounds Musculoskeletal: edema present Dx/Plan - Plan plan discussed w/ family (mother at bedside), DVT proph w/lovenox, DVT proph w/ SCDs IMPRESSION: 1. Acute hypoxic/hypercapnic Resp failure on Mech Vent 2. Severe sepsis with acute organ dysfunction/Septic shock due to Pneumococcal Pneumonia/Recent Flu A 3. FREDY with Abn LFTs due to sepsis 4. Metabolic acidosis/Lactic acidosis 5. Pneumothorax s/p chest tube 6. Diarrhea - r/o C diff 7. DM2/HTN/Morbid Obesity BMI 68.2/Anxiety-Depression PLAN: * Bronch today * Start PO Vancomycin * On Mech Vent * Steroid taper per Critical care * Cont Atbx * AM labs * Cont to monitor * Cont current meds as below Review of Systems - Review of Systems Other: Cannot obtain due to sedation - Medications/Allergies Allergies/Adverse Reactions: Allergies Allergy/AdvReac Type Severity Reaction Status Date / Time No Allergy Information Allergy Unverified 01/27/17 19:32 Available Medications: Current Medications Acetaminophen (Tylenol) 650 mg ND Q4H PRN PRN Reason: Headache/Fever or Pain Last Admin: 02/01/17 13:03 Dose: 650 mg Albuterol Sulfate (Ventolin) 2.5 mg NEB Q2H PRN PRN Reason: Wheezing Albuterol/Ipratropium (Duoneb) 3 ml NEB Q6CP-DJ [facility] Last Admin: 02/01/17 15:14 Dose: 3 ml Clindamycin Phosphate/Dextrose (Cleocin) 900 mg IVPB 0500,1300,2100 [facility] Last Admin: 02/01/17 13:03 Dose: 900 mg Dextrose/Water (Dextrose 50%) 25 gm SLOW IVP PRN PRN PRN Reason: Hypoglycemia Enoxaparin Sodium (Lovenox) 40 mg SC 0900 [facility] Last Admin: 02/01/17 07:34 Dose: 40 mg Famotidine (Pepcid) 20 mg PER TUBE BID [facility] Last Admin: 02/01/17 07:34 Dose: 20 mg Fluconazole (Diflucan) 100 mg PO DAILY [facility] Glucagon (Glucagon) 1 mg IM PRN PRN PRN Reason: Hypoglycemia Norepinephrine Bitartrate (Levophed) 250 mls @ 0 mls/hr IVPB INF [facility]; Titrate PRN Reason: Protocol Last Admin: 01/29/17 20:38 Dose: 250 mls Fentanyl Citrate (Fentanyl Bolus) 250 mls @ 0 mls/hr IVPB PRN PRN; As Directed PRN Reason: Breakthrough pain Stop: 02/26/17 20:40 Cefepime HCl 2 gm/ Syringe 2.5 (ml/ Sterile Water) 12.5 mls @ 150 mls/hr SLOW IVP 0900,2100 [facility] Last Admin: 02/01/17 07:42 Dose: 12.5 mls Sodium Chloride (1/2 Normal Saline) 1,000 mls @ 50 mls/hr IV .Q20H [facility] Last Admin: 01/31/17 20:08 Dose: 1,000 mls Dextrose/Water (D5w) 1,000 mls @ 0 mls/hr IV .Q0M PRN; As Directed PRN Reason: Hypoglycemia Fentanyl Citrate 2,000 mcg/ (Sodium Chloride) 100 mls @ 0 mls/hr IV INF [facility] PRN Reason: As Directed Last Admin: 02/01/17 09:51 Dose: 100 mls Insulin Detemir 50 units/ (Miscellaneous Medication) 0.5 mls @ 0 mls/hr SC BID [facility] Insulin Human Regular (Humulin R) 0 units SC .AGGRESSIVE SLIDING PRN PRN Reason: Aggressive Sliding Scale Last Admin: 02/01/17 16:06 Dose: 11 unit Lorazepam (Ativan) 2 mg SLOW IVP Q2H PRN PRN Reason: Anxiety to achieve Hinojosa 2-3 Stop: 02/26/17 20:40 Last Admin: 02/01/17 16:05 Dose: 2 mg Methylprednisolone Sodium Succinate (Solu-Medrol) 20 mg IVP BID [facility] Last Admin: 02/01/17 07:34 Dose: 20 mg Morphine Sulfate (Morphine) 2 mg IVP Q2H PRN PRN Reason: Breakthrough pain Stop: 02/26/17 20:43 Last Admin: 02/01/17 12:53 Dose: 2 mg Discontinue Previous Narcotic Pain Medications And Benzodiazepines 1 each FS .ONE [facility] Stop: 02/26/17 20:40 Nystatin (Mycostatin Powder) 0 gm TOP BID [facility] Propofol (Diprivan) 1,000 mg IV INF PRN; Protocol PRN Reason: TO ACHIEVE HINOJOSA SCORE 2-3 Stop: 02/26/17 20:40 Saccharomyces Boulardii (Florastor) 250 mg PO DAILY [facility] Last Admin: 02/01/17 07:34 Dose: 250 mg Sodium Chloride (Flush - Normal Saline) 10 ml IVF PRN PRN PRN Reason: Saline Flush Last Admin: 02/01/17 07:34 Dose: 10 ml Vancomycin HCl (First Vancomycin) 125 mg PO QID [facility] Last Admin: 02/01/17 16:05 Dose: 125 mg
[2017-02-01] MEDS: Sodium Chloride 0.45% 1,000 ML IV SCH (18:33)
[2017-02-01] MEDS: Nystatin Powder 15 GM BOT TOP SCH (21:02)
[2017-02-01] MEDS: Insulin Detemir 100 UNITS/ML 50 UNITS in Pre-Filled Syringe 1 EACH SC SCH (21:11)
--- NOTE | 2017-02-01 21:48 | OP ---
DATE: 02/01/2017 PROCEDURE: Bronchoscopy with lavage. INDICATION: Respiratory failure, adult respiratory distress syndrome. Washings sent for Gram stain and C&S. POST-BRONCHOSCOPY DIAGNOSIS: Respiratory failure, adult respiratory distress syndrome. DESCRIPTION OF PROCEDURE: After informed consent from the family members, using an adapter on the en dotracheal tube, the patient was turned up to 100% FiO2. A flexible bronchoscope was then passed usi ng an adapter. Distal trachea had some pus. On entering the right lung, upper, middle, and lower lo be were visualized. No endobronchial disease was seen, some mucous plugs in the basilar part of the segments were suctioned and lavaged until clear. No bleeding was seen. The left lung was inspected thereafter. This had a lesser amount of mucous plugs at the basilar segments, which were also suctio blas and lavaged until clear. No further endobronchial obstruction or blood was seen. Both lungs lav aged with normal saline, a total of 60 mL, until clear. The washings sent for Gram stain and C&S. T he patient tolerated the procedure well.
--- NOTE | 2017-02-01 22:20 | PRG ---
DATE OF SERVICE: 02/01/2017 SUBJECTIVE: Ms. Mariza Andrade is intubated on the vent, sedated, though apparently she moves all 4 extremities. OBJECTIVE: VITAL SIGNS: Pulse 118, blood pressure is 153/112. I's and O's are 2262 in and 4700 out. CHEST: Decreased breath sounds, bilateral rhonchi. No wheezing. CARDIAC: Sinus tachycardia. ABDOMEN: Soft. No masses. LABORATORY DATA: White count 13,000, H&H is 12 and 36, platelet count 184, pO2 was 81, pCO2 58, pH 7 .34, on a bilevel rate of 20/50%, high PEEP 32, low PEEP 10. Creatinine is 1.2, BUN 64. Liver funct ion showed ALT is 401. Blood sugar is still markedly elevated at 477. IMPRESSION: 1. Diabetes. 2. Renal failure.. 3. Pneumonia. 4. Spontaneous pneumothorax. 5. Morbid obesity. PLAN: Diagnostic bronchoscopy will be performed. We will send fluid for appropriate culture. We wi ll also deescalate antibiotics. Continue insulin as prescribed. We will follow. She is not weanable at this stage. One-half hour critical care time.
[2017-02-02] MEDS: Insulin Regular 300 UNITS/3 ML VIAL SC PRN ×6 (00:16→21:07)
[2017-02-02] MEDS: Sodium Chloride 0.45% 1,000 ML IV SCH ×2 (01:44→20:22)
[2017-02-02] MEDS: Lorazepam 2 MG/ML VIAL SLOW IVP PRN ×4 (02:11→20:24)
[2017-02-02] MEDS: Morphine 2 MG/ML SYRINGE IVP PRN (02:54)
[2017-02-02] MEDS ORDERED: cloNIDine 0.1 MG TAB PO SCH (03:00)
[2017-02-02 04:57] LABS: Anion Gap 11 mmol/L (10-20); BUN (Urea Nitrogen) 51 mg/dL (7.0-18.7); CK (CPK) 221 U/L (29-168); Calc. Creatinine Clearance 262 mL/min (70-130); Calcium 9.5 mg/dL (7.8-10.44); Carbon Dioxide 33 mmol/L (22-29); Chloride 108 mmol/L (98-107); Estimated GFR-MDRD 71; Glucose 346 mg/dL (70-105); Magnesium 2.2 mg/dL (1.6-2.6); Phosphorus 2.5 mg/dL (2.3-4.7); Potassium 4.4 mmol/L (3.5-5.1); Sodium 148 mmol/L (136-145)
[2017-02-02] MEDS: Clindamycin/D5W 900 mg/50 ml Premix Bag IVPB SCH ×3 (05:22→20:23)
[2017-02-02 05:28] LABS: Band 8 % (5-11); Basophilic Stippling SLIGHT = 1-2 cells (100X) (None Seen); Hemoglobin 11.1 g/dL (12.0-16.0); Lymphocytes 14 % (21-51); MDiff Complete? YES; Mean Corpuscular HGB CONC 30.9 g/dL (32.0-36.0); Mean Corpuscular Hemoglobin 30.3 pg (27.0-31.0); Mean Corpuscular Volume 98.1 fl (81.0-99.0); Mean Platelet Volume 9.6 fL (7.4-10.4); Metamyelocyte 4 % (0-0); Monocytes 4 % (0-10); Myelocyte 2 % (0-0); Neutrophil 67 % (42-75); Nucleated RBC 1 % (0); PLT Morphology Comment Appears Adequate; Platelet Count 222 thou/uL (130-400); Polychromasia SLIGHT = 2-3 cells (100X) (0-2/hpf); RBC Distribution Width 12.9 % (11.5-14.5); Reactive Lymphocytes 1 % (0-10); Red Blood Cell (RBC) Count 3.65 mill/uL (4.20-5.40); Toxic Granulation SLIGHT; White Blood Cell (WBC) Count 15.2 thou/uL (4.8-10.8)
[2017-02-02] MEDS: fentaNYL Citrate/PF 2,000 MCG in Sodium Chloride 0.9% 60 ML IV SCH (06:46)
[2017-02-02 07:42] LABS: Actual Bicarbonate (HCO3a) 32.2 mEq/L (22-26); Base Excess (BEa) 5.3 mEq/L (0 (+/-) 2.5); CO2 Tension 59.7 mmHg (35.0-45.0); Calcium, Ionized 1.3 mmol/L (1.12-1.30); Hematocrit-ABG 31.9 % (36.0-47.0); Hemoglobin (Hb) 10.8 g/dL (12.0-16.0); O2 Tension (PaO2) 75.2 mmHg (80.0-100.0); pH, Arterial 7.35 (7.35-7.45)
[2017-02-02 07:44] LABS: ALV-art Gradient 209.675 (0-20); Puncture Site RRA
--- NOTE | 2017-02-02 08:16 | RAD ---
CHEST ONE VIEW: HISTORY: Ventilated patient. COMPARISON: Chest one view from 02/01/2017. FINDINGS: The right thoracostomy tube is similar. There appears to be a size increasing right pneumothorax. T he subcutaneous gas is much worsened. The patient is intubated with the endotracheal tube tip above the clavicles. Enteric tube tip is not well seen. Heart size is enlarged. Extensive perihilar opacities. IMPRESSION: Worsening subcutaneous emphysema of the right lateral hemithorax with size increasing right pneumotho rax. POS: [facility]
[2017-02-02] MEDS: Famotidine 20 MG TAB PER TUBE SCH ×2 (08:43→20:23)
[2017-02-02] MEDS: Saccharomyces boulardii 250 MG CAP PO SCH (08:43)
[2017-02-02] MEDS: Nystatin Powder 15 GM BOT TOP SCH ×2 (08:44→20:57)
[2017-02-02] MEDS: Enoxaparin Sodium 40 MG/0.4 ML SYRINGE SC SCH (08:44)
[2017-02-02] MEDS: Cefepime 2 GM, Syringe 2.5 ML in Sterile Water 10 ML SLOW IVP SCH ×2 (08:44→20:23)
[2017-02-02] MEDS: Vancomycin HCl 25 MG/ML Oral PO SCH ×4 (08:45→20:22)
[2017-02-02] MEDS: Fluconazole 100 MG TAB PO SCH (08:48)
[2017-02-02] MEDS: Insulin Detemir 100 UNITS/ML 50 UNITS in Pre-Filled Syringe 1 EACH SC SCH ×2 (09:23→20:24)
[2017-02-02] MEDS: Propofol 1,000 MG/100 ML VIAL IV PRN ×4 (09:28→23:31)
[2017-02-02] MEDS ORDERED: Lidocaine 1% (PF) 30 ML VIAL ONE (18:27)
--- NOTE | 2017-02-02 18:28 | PRG ---
DATE OF SERVICE: 02/02/2017 SUBJECTIVE: The patient remains intubated on the vent, sedated. X-ray shows worsening right-sided pneumothorax where she has a chest tube in place. So far, bronch w ashings from yesterday, no growth. There appears she has strep pneumonia. PHYSICAL EXAMINATION: VITAL SIGNS: Blood pressure is 150/58, pulse 94, sats 90%, respiratory rate 20. I's and O's are 265 3 and 3675. CHEST: Decreased breath sounds, no wheezing. CARDIAC: Normal S1 and S2. No gallops. ABDOMEN: Soft, no masses. LABORATORY DATA: White count 15,000, hemoglobin and hematocrit 11 and 35, platelet count is 222, pO2 is 75, pCO2 59, pH 7.35, rate of 20, 50%, and PEEP of 5. Electrolytes are normal. IMPRESSION: 1. Respiratory failure. 2. Influenza A. 3. Right-sided pneumonia. PLAN: Continue Maxipime, clindamycin, and vancomycin. Discuss with CV surgeries regarding the need to put a second chest tube. She is clearly not weanable at this stage. She may need trach and PEG later. Will follow. One half hour critical care time.
--- NOTE | 2017-02-02 21:11 | RAD ---
PORTABLE CHEST: 02/02/17 HISTORY: Chest tube placement. COMPARISON: Earlier exam of the same day. Right sided chest tube has been placed. The right pneumothorax has improved. The pleural and parenchy mal changes of the right lung are unchanged. Endotracheal tube is in satisfactory position. Tip of th e NG tube is difficult to visualize. IMPRESSION: Interval placement of a second right chest tube with re-expansion of the right lung. Otherwise essent ially stable chest. POS: [facility]
--- NOTE | 2017-02-02 22:54 | PDOC.PN ---
- Subjective Encounter Start Date: 02/02/17 Encounter Start Time: 18:00 Patient seen and examined. Intubated on Vent. No overnight events - Objective Resuscitation Status: Resuscitation Status FULL:Full Resuscitation MAR Reviewed: Yes Vital Signs & Weight: Vital Signs (12 hours) Temp Pulse Resp BP Pulse Ox 02/02/17 22:21 82 18 97 02/02/17 20:00 99.4 F 28 H 02/02/17 18:49 96 29 H 95 02/02/17 18:00 24 H 02/02/17 16:00 99.8 F H 27 H 02/02/17 14:29 88 160/99 H 02/02/17 14:28 88 26 H 99 02/02/17 14:00 27 H 02/02/17 12:00 99.4 F 27 H 02/02/17 11:11 88 144/92 H 02/02/17 11:10 86 23 H 99 Weight Admit Weight 414 lb Weight 414 lb Most Recent Monitor Data Heart Rate from ECG 91 NIBP 138/72 NIBP BP-Mean 95 Respiration from ECG 19 SpO2 95 I&O: 02/01/17 02/02/17 02/03/17 06:59 06:59 06:59 Intake Total 2262.2 2653.9 1412 Output Total 4700 3275 1530 [facility] -2437.8 -621.1 -118 Result Diagrams: 02/03/17 04:05 02/03/17 04:05 Additional Labs: Accuchecks 02/02/17 02/02/17 02/02/17 21:03 16:02 11:44 POC Glucose 209 H 294 H 251 H 02/02/17 02/02/17 02/02/17 08:13 04:08 00:15 POC Glucose 274 H 317 H 294 H 02/01/17 02/01/17 02/01/17 20:40 16:06 14:23 POC Glucose 283 H 337 H 357 H 02/01/17 02/01/17 02/01/17 07:26 03:44 00:06 POC Glucose 410 H 410 H 420 H 01/31/17 01/31/17 19:39 16:13 POC Glucose 436 H 470 H EKG Reviewed by me: Yes (Tele SR) Phys Exam - Physical Examination Constitutional: NAD On Vent Respiratory: no wheezing Coarse BS B/L, Chest tube + Cardiovascular: RRR Gastrointestinal: soft, positive bowel sounds Neuro/Pscy - Cannot assess due to sedation Dx/Plan - Plan fletcher catheter, continue antibiotics, respiratory therapy, DVT proph w/lovenox, DVT proph w/SCDs IMPRESSION: 1. Acute hypoxic/hypercapnic Resp failure on Mech Vent 2. Severe sepsis with acute organ dysfunction/Septic shock due to Pneumococcal Pneumonia/Recent Flu A 3. FREDY with Abn LFTs due to sepsis 4. Metabolic acidosis/Lactic acidosis 5. Pneumothorax s/p chest tube 6. Diarrhea - r/o C diff 7. DM2/HTN/Morbid Obesity BMI 68.2/Anxiety-Depression PLAN: * On Mech Vent * completed Tamiflu * Cont Atbx/Steroids * AM labs * Cont current meds as below * DC PO Vanc - C diff negative Review of Systems - Review of Systems Other: Cannot obtain due to sedation - Medications/Allergies Allergies/Adverse Reactions: Allergies Allergy/AdvReac Type Severity Reaction Status Date / Time No Allergy Information Allergy Verified 02/01/17 20:13 Available Medications: Current Medications Acetaminophen (Tylenol) 650 mg CA Q4H PRN PRN Reason: Headache/Fever or Pain Last Admin: 02/01/17 13:03 Dose: 650 mg Albuterol Sulfate (Ventolin) 2.5 mg NEB Q2H PRN PRN Reason: Wheezing Albuterol/Ipratropium (Duoneb) 3 ml NEB [id number] [facility] Last Admin: 02/02/17 22:21 Dose: 3 ml Clindamycin Phosphate/Dextrose (Cleocin) 900 mg IVPB 0500,1300,2100 [facility] Last Admin: 02/02/17 20:23 Dose: 900 mg Clonidine (Catapres) 0.1 mg PO Q4H PRN PRN Reason: SBP Greater Than 170 Dextrose/Water (Dextrose 50%) 25 gm SLOW IVP PRN PRN PRN Reason: Hypoglycemia Enoxaparin Sodium (Lovenox) 40 mg SC 0900 [facility] Last Admin: 02/02/17 08:44 Dose: 40 mg Famotidine (Pepcid) 20 mg PER TUBE BID [facility] Last Admin: 02/02/17 20:23 Dose: 20 mg Fluconazole (Diflucan) 100 mg PO DAILY [facility] Last Admin: 02/02/17 08:48 Dose: 100 mg Glucagon (Glucagon) 1 mg IM PRN PRN PRN Reason: Hypoglycemia Norepinephrine Bitartrate (Levophed) 250 mls @ 0 mls/hr IVPB INF [facility]; Titrate PRN Reason: Protocol Last Admin: 01/29/17 20:38 Dose: 250 mls Fentanyl Citrate (Fentanyl Bolus) 250 mls @ 0 mls/hr IVPB PRN PRN; As Directed PRN Reason: Breakthrough pain Stop: 02/26/17 20:40 Cefepime HCl 2 gm/ Syringe 2.5 (ml/ Sterile Water) 12.5 mls @ 150 mls/hr SLOW IVP 0900,2100 [facility] Last Admin: 02/02/17 20:23 Dose: 12.5 mls Sodium Chloride (1/2 Normal Saline) 1,000 mls @ 50 mls/hr IV .Q20H [facility] Last Admin: 02/02/17 20:22 Dose: 1,000 mls Dextrose/Water (D5w) 1,000 mls @ 0 mls/hr IV .Q0M PRN; As Directed PRN Reason: Hypoglycemia Fentanyl Citrate 2,000 mcg/ (Sodium Chloride) 100 mls @ 0 mls/hr IV INF [facility] PRN Reason: As Directed Last Admin: 02/02/17 06:46 Dose: 100 mls Insulin Detemir 50 units/ (Miscellaneous Medication) 0.5 mls @ 0 mls/hr SC BID [facility] Last Admin: 02/02/17 20:24 Dose: 0.5 mls Insulin Human Regular (Humulin R) 0 units SC .AGGRESSIVE SLIDING PRN PRN Reason: Aggressive Sliding Scale Last Admin: 02/02/17 21:07 Dose: 3 unit Lorazepam (Ativan) 2 mg SLOW IVP Q2H PRN PRN Reason: Anxiety to achieve Hinojosa 2-3 Stop: 02/26/17 20:40 Last Admin: 02/02/17 20:24 Dose: 2 mg Methylprednisolone Sodium Succinate (Solu-Medrol) 20 mg IVP BID [facility] Last Admin: 02/02/17 20:23 Dose: 20 mg Morphine Sulfate (Morphine) 2 mg IVP Q2H PRN PRN Reason: Breakthrough pain Stop: 02/26/17 20:43 Last Admin: 02/02/17 02:54 Dose: 2 mg Discontinue Previous Narcotic Pain Medications And Benzodiazepines 1 each FS .ONE [facility] Stop: 02/26/17 20:40 Nystatin (Mycostatin Powder) 0 gm TOP BID [facility] Last Admin: 02/02/17 20:57 Dose: 1 applic Propofol (Diprivan) 1,000 mg IV INF PRN; Protocol PRN Reason: TO ACHIEVE HINOJOSA SCORE 2-3 Stop: 02/26/17 20:40 Last Admin: 02/02/17 20:22 Dose: 1,000 mg Saccharomyces Boulardii (Florastor) 250 mg PO DAILY [facility] Last Admin: 02/02/17 08:43 Dose: 250 mg Sodium Chloride (Flush - Normal Saline) 10 ml IVF PRN PRN PRN Reason: Saline Flush Last Admin: 02/02/17 20:58 Dose: 10 ml Vancomycin HCl (First Vancomycin) 125 mg PO QID [facility] Last Admin: 02/02/17 20:22 Dose: 125 mg
--- NOTE | 2017-02-03 01:25 | OP ---
PREOPERATIVE DIAGNOSIS: Recurrent right pneumothorax. POSTOPERATIVE DIAGNOSIS: Recurrent right pneumothorax. INSTRUMENT STERILIZER: Young Roberson MD ANESTHESIA: IV sedation and local at proposed tube insertion site. PROCEDURE PERFORMED: Right tube thoracostomy (apical 32-Libyan right angle). DESCRIPTION OF PROCEDURE: Informed consent for a second chest tube was provided by the patient's mother. Patient has been maintained on the ventilator. Intravenous sedation has been achieved. At the proposed tube insertion site, local anesthesia was achieved with 1% Xylocaine. On the upper right anterior chest, a small stab incision was made. Dissection was carried down to the chest wall. Pleural space was entered without difficulty. Digital sweep revealed no adhesions. A 32-Libyan right angle chest tube was placed with the tip directed toward the apex. The tube was connected to pleurovac suction. Tube was secured to the skin with silk sutures. Dressing was applied. Chest x-ray will be obtained to ascertain and result. The patient appeared to tolerate the procedure without evident problems. HEMA
[2017-02-03] MEDS: Propofol 1,000 MG/100 ML VIAL IV PRN ×12 (01:59→22:25)
[2017-02-03] MEDS: Insulin Regular 300 UNITS/3 ML VIAL SC PRN ×6 (03:00→20:49)
[2017-02-03] MEDS: Lorazepam 2 MG/ML VIAL SLOW IVP PRN ×3 (03:20→13:16)
[2017-02-03] MEDS: Clindamycin/D5W 900 mg/50 ml Premix Bag IVPB SCH ×3 (04:00→20:37)
[2017-02-03] MEDS: fentaNYL Citrate/PF 2,000 MCG in Sodium Chloride 0.9% 60 ML IV SCH ×2 (04:26→22:40)
[2017-02-03 04:51] LABS: Anion Gap 11 mmol/L (10-20); BUN (Urea Nitrogen) 39 mg/dL (7.0-18.7); Calc. Creatinine Clearance 310 mL/min (70-130); Calcium 9.4 mg/dL (7.8-10.44); Carbon Dioxide 33 mmol/L (22-29); Chloride 108 mmol/L (98-107); Estimated GFR-MDRD 86; Glucose 278 mg/dL (70-105); Potassium 4.8 mmol/L (3.5-5.1); Sodium 147 mmol/L (136-145)
[2017-02-03 04:56] LABS: Band 3 % (5-11); Hemoglobin 11.4 g/dL (12.0-16.0); Lymphocytes 10 % (21-51); MDiff Complete? YES; Mean Corpuscular HGB CONC 30.7 g/dL (32.0-36.0); Mean Corpuscular Hemoglobin 30.1 pg (27.0-31.0); Mean Corpuscular Volume 97.8 fl (81.0-99.0); Mean Platelet Volume 9.5 fL (7.4-10.4); Metamyelocyte 7 % (0-0); Monocytes 6 % (0-10); Myelocyte 2 % (0-0); Neutrophil 72 % (42-75); PLT Morphology Comment Appears Adequate; Platelet Count 244 thou/uL (130-400); RBC Distribution Width 12.9 % (11.5-14.5); Red Blood Cell (RBC) Count 3.79 mill/uL (4.20-5.40)
[2017-02-03 08:06] LABS: Actual Bicarbonate (HCO3a) 29.8 mEq/L (22-26); Base Excess (BEa) 5.2 mEq/L (0 (+/-) 2.5); CO2 Tension 43.9 mmHg (35.0-45.0); Hemoglobin (Hb) 11.1 g/dL (12.0-16.0); O2 Tension (PaO2) 121.2 mmHg (80.0-100.0); pH, Arterial 7.45 (7.35-7.45)
[2017-02-03 08:07] LABS: ALV-art Gradient 111.525 (0-20); Puncture Site RRA
[2017-02-03] MEDS: Famotidine 20 MG TAB PER TUBE SCH ×2 (08:31→20:39)
[2017-02-03] MEDS: Nystatin Powder 15 GM BOT TOP SCH ×2 (08:31→20:51)
[2017-02-03] MEDS: Saccharomyces boulardii 250 MG CAP PO SCH (08:31)
[2017-02-03] MEDS: Fluconazole 100 MG TAB PO SCH (08:31)
[2017-02-03] MEDS: Enoxaparin Sodium 40 MG/0.4 ML SYRINGE SC SCH (08:32)
[2017-02-03] MEDS: Insulin Detemir 100 UNITS/ML 50 UNITS in Pre-Filled Syringe 1 EACH SC SCH ×2 (08:37→20:42)
[2017-02-03] MEDS: Cefepime 2 GM, Syringe 2.5 ML in Sterile Water 10 ML SLOW IVP SCH ×2 (08:38→20:35)
--- NOTE | 2017-02-03 10:21 | RAD ---
PORTABLE SEMIUPRIGHT CHEST ONE VIEW: HISTORY: A 31-year-old female with respiratory insufficiency. FINDINGS: NG tube and endotracheal tube appear in satisfactory stable locations. Numerous right chest tubes ar e noted with some focal right inferolateral chest wall but fairly extensive subcutaneous emphysema. Persistent pleural and parenchymal opacity changes in the right mid and lower lung zone, evidence for left pleural effusion. IMPRESSION: 1. Stable postoperative right chest surgical changes with multiple right chest tubes and some subcut aneous emphysema. 2. Minimal cardiomegaly with bilateral vascular congestion and left pleural effusion. Continue short-term followup. POS: [facility]
--- NOTE | 2017-02-03 13:51 | PRG ---
DATE OF SERVICE: 02/03/2017 Thirty-five minutes of critical care time. SUBJECTIVE: The patient remains intubated on mechanical ventilation. She required a second chest tu be to be placed yesterday on the right. PHYSICAL EXAMINATION: VITAL SIGNS: Temperature is 97.8, pulse 81, blood pressure 140/77, total intake for 24 hours 3130, o utput 2055. NEUROLOGICAL: She is deeply sedated on mechanical ventilation. HEENT: Pupils react. Sclerae anicteric. Oropharynx clear. NECK: No JVD. LUNGS: Diminished breath sounds in both lungs. She has a profound air leak in the right chest tube; the left side shows dense crackles. CARDIAC: S1 and S2 regular. ABDOMEN: Soft, obese, nontender, nondistended. EXTREMITIES: Edematous throughout. IMAGING: X-ray shows fairly significant collapse of the right lung. Chest tubes were noted. Left l hilda is up. LABORATORY DATA: White blood cell count 14, hematocrit 37, platelet count 244. PH 7.45, pCO2 of 43, pO2 of 121 on bilevel rate 20, high PEEP 32, low PEEP 12. Sodium 147, potassium 4.8, chloride 108, CO2 of 33, BUN 39, creatinine 0.7, glucose 278. ASSESSMENT: 1. Acute respiratory failure, requiring mechanical ventilation. 2. Necrotizing pneumonia with large right pneumothorax. 3. Influenza A. PLAN: 1. Continue antibiotics. 2. Second chest tube has been placed and it will be adjusted later. 2. Not weanable. 4. Prognosis is very guarded at this point.
--- NOTE | 2017-02-03 18:49 | RAD ---
PORTABLE CHEST ONE VIEW 02/03/17 at 3:40 p.m. HISTORY: New chest tube placement. FINDINGS/IMPRESSION: There has been interval repositioning of the right sided chest tube since earlier exam of 5:16 a.m. E ndotracheal and nasogastric tubes are in place. Opacities in the right lung are again seen. There is subcutaneous emphysema on the right side. The he art size is stable. POS: [facility]
--- NOTE | 2017-02-03 19:08 | RAD ---
EXAM: ONE VIEW CHEST 02/03/17 COMPARISON: 02/03/17 at 5:16 a.m., 02/03/17 at 3:14 p.m. FINDINGS: Redemonstration of an endotracheal and nasogastric tube. Persistent cardiomegaly. Persistent opacific ation of the lung parenchyma. Redemonstration of extensive subcutaneous emphysema involving the right chest wall. There appear to be two separate chest tubes projecting over the right hemithorax. Small right sided pneumothorax cannot be excluded. These chest tubes are unchanged in position when compare d to the examination performed at 3:14 p.m. IMPRESSION: 1. Lines and tubes as above. 2. Extensive right hemithoracic subcutaneous emphysema. 3. Small right sided pneumothorax. 4. Lung parenchymal opacification as detailed above. POS: [facility]
--- NOTE | 2017-02-03 20:54 | PDOC.PN ---
- Subjective Encounter Start Date: 02/03/17 Encounter Start Time: 13:00 Patient seen and examined. On [facility] Vent. No overnight events - Objective Resuscitation Status: Resuscitation Status FULL:Full Resuscitation MAR Reviewed: Yes Vital Signs & Weight: Vital Signs (12 hours) Temp Pulse Pulse Pulse Resp BP BP 02/03/17 18:19 81 25 H 02/03/17 18:00 23 H 02/03/17 16:00 98.3 F 32 H 02/03/17 15:12 78 142/81 H 02/03/17 15:10 78 27 H 02/03/17 14:00 32 H 02/03/17 12:00 98.3 F 29 H 02/03/17 11:15 76 140/73 02/03/17 11:14 76 20 02/03/17 10:45 77 76 140/77 02/03/17 10:00 23 H BP Pulse Ox 02/03/17 18:19 96 02/03/17 18:00 02/03/17 16:00 02/03/17 15:12 02/03/17 15:10 97 02/03/17 14:00 02/03/17 12:00 02/03/17 11:15 02/03/17 11:14 99 02/03/17 10:45 140/73 02/03/17 10:00 Weight Admit Weight 414 lb Weight 414 lb 11.032 oz Most Recent Monitor Data Heart Rate from ECG 82 NIBP 143/77 NIBP BP-Mean 103 Respiration from ECG 26 SpO2 96 I&O: 02/02/17 02/03/17 02/04/17 06:59 06:59 06:59 Intake Total 2653.9 3139 1922.9 Output Total 3275 2055 1145 Balance -621.1 1084 777.9 Result Diagrams: 02/03/17 04:05 02/03/17 04:05 Additional Labs: Accuchecks 02/03/17 02/03/17 02/03/17 20:20 08:14 04:17 POC Glucose 229 H 232 H 274 H 02/03/17 02/02/17 02/02/17 01:11 21:03 16:02 POC Glucose 231 H 209 H 294 H 02/02/17 02/02/17 02/02/17 11:44 08:13 04:08 POC Glucose 251 H 274 H 317 H 02/02/17 02/01/17 02/01/17 00:15 20:40 16:06 POC Glucose 294 H 283 H 337 H 02/01/17 02/01/17 02/01/17 14:23 07:26 03:44 POC Glucose 357 H 410 H 410 H 02/01/17 01/31/17 01/31/17 00:06 19:39 16:13 POC Glucose 420 H 436 H 470 H EKG Reviewed by me: Yes (Tele Sr) Phys Exam - Physical Examination Constitutional: NAD PT on Mech Vent Respiratory: no wheezing Coarse BS B/L Cardiovascular: RRR, no rub Gastrointestinal: soft, positive bowel sounds Musculoskeletal: no edema Neuro/Pscyh - Cannot assess due to sedation Dx/Plan - Plan continue antibiotics, DVT proph w/lovenox, DVT proph w/SCDs IMPRESSION: 1. Acute hypoxic/hypercapnic Resp failure on Mech Vent 2. Severe sepsis with acute organ dysfunction/Septic shock due to Pneumococcal Pneumonia/Recent Flu A 3. FREDY with Abn LFTs due to sepsis 4. Metabolic acidosis/Lactic acidosis - improved 5. Pneumothorax s/p chest tube 6. DM2/HTN/Morbid Obesity BMI 68.2/Anxiety-Depression PLAN: * On Mech Vent * completed Tamiflu * Cont Atbx/Steroids * AM labs * Cont current meds as below * On Levemir 50 units BID Review of Systems - Review of Systems Other: Cannot obtain due to sedation - Medications/Allergies Allergies/Adverse Reactions: Allergies Allergy/AdvReac Type Severity Reaction Status Date / Time No Allergy Information Allergy Verified 02/01/17 20:13 Available Medications: Current Medications Acetaminophen (Tylenol) 650 mg SC Q4H PRN PRN Reason: Headache/Fever or Pain Last Admin: 02/01/17 13:03 Dose: 650 mg Acetaminophen (Tylenol Elixir) 650 mg PER TUBE Q4H PRN PRN Reason: Headache/Fever or Pain Albuterol Sulfate (Ventolin) 2.5 mg NEB Q2H PRN PRN Reason: Wheezing Albuterol/Ipratropium (Duoneb) 3 ml NEB [id number] ALICIA Last Admin: 02/03/17 18:19 Dose: 3 ml Clindamycin Phosphate/Dextrose (Cleocin) 900 mg IVPB 0500,1300,2100 [facility] Last Admin: 02/03/17 13:16 Dose: 900 mg Clonidine (Catapres) 0.1 mg PO Q4H PRN PRN Reason: SBP Greater Than 170 Dextrose/Water (Dextrose 50%) 25 gm SLOW IVP PRN PRN PRN Reason: Hypoglycemia Enoxaparin Sodium (Lovenox) 40 mg SC 0900 [facility] Last Admin: 02/03/17 08:32 Dose: 40 mg Famotidine (Pepcid) 20 mg PER TUBE BID [facility] Last Admin: 02/03/17 08:31 Dose: 20 mg Fluconazole (Diflucan) 100 mg PO DAILY [facility] Last Admin: 02/03/17 08:31 Dose: 100 mg Glucagon (Glucagon) 1 mg IM PRN PRN PRN Reason: Hypoglycemia Norepinephrine Bitartrate (Levophed) 250 mls @ 0 mls/hr IVPB INF [facility]; Titrate PRN Reason: Protocol Last Admin: 01/29/17 20:38 Dose: 250 mls Fentanyl Citrate (Fentanyl Bolus) 250 mls @ 0 mls/hr IVPB PRN PRN; As Directed PRN Reason: Breakthrough pain Stop: 02/26/17 20:40 Cefepime HCl 2 gm/ Syringe 2.5 (ml/ Sterile Water) 12.5 mls @ 150 mls/hr SLOW IVP [facility] Last Admin: 02/03/17 08:38 Dose: 12.5 mls Sodium Chloride (1/2 Normal Saline) 1,000 mls @ 50 mls/hr IV .Q20H [facility] Last Admin: 02/02/17 20:22 Dose: 1,000 mls Dextrose/Water (D5w) 1,000 mls @ 0 mls/hr IV .Q0M PRN; As Directed PRN Reason: Hypoglycemia Fentanyl Citrate 2,000 mcg/ (Sodium Chloride) 100 mls @ 0 mls/hr IV INF [facility] PRN Reason: As Directed Last Admin: 02/03/17 04:26 Dose: 100 mls Insulin Detemir 50 units/ (Miscellaneous Medication) 0.5 mls @ 0 mls/hr SC BID [facility] Last Admin: 02/03/17 08:37 Dose: 0.5 mls Insulin Human Regular (Humulin R) 0 units SC .AGGRESSIVE SLIDING PRN PRN Reason: Aggressive Sliding Scale Last Admin: 02/03/17 16:27 Dose: 6 unit Lorazepam (Ativan) 2 mg SLOW IVP Q2H PRN PRN Reason: Anxiety to achieve Hinojosa 2-3 Stop: 02/26/17 20:40 Last Admin: 02/03/17 13:16 Dose: 2 mg Methylprednisolone Sodium Succinate (Solu-Medrol) 20 mg IVP BID [facility] Last Admin: 02/03/17 08:31 Dose: 20 mg Morphine Sulfate (Morphine) 2 mg IVP Q2H PRN PRN Reason: Breakthrough pain Stop: 02/26/17 20:43 Last Admin: 02/02/17 02:54 Dose: 2 mg Discontinue Previous Narcotic Pain Medications And Benzodiazepines 1 each FS .ONE [facility] Stop: 02/26/17 20:40 Nystatin (Mycostatin Powder) 0 gm TOP BID [facility] Last Admin: 02/03/17 08:31 Dose: 1 applic Propofol (Diprivan) 1,000 mg IV INF PRN; Protocol PRN Reason: TO ACHIEVE HINOJOSA SCORE 2-3 Stop: 02/26/17 20:40 Last Admin: 02/03/17 18:50 Dose: 1,000 mg Saccharomyces Boulardii (Florastor) 250 mg PO DAILY [facility] Last Admin: 02/03/17 08:31 Dose: 250 mg Sodium Chloride (Flush - Normal Saline) 10 ml IVF PRN PRN PRN Reason: Saline Flush Last Admin: 02/02/17 20:58 Dose: 10 ml
[2017-02-03] MEDS: Sodium Chloride 0.45% 1,000 ML IV SCH (22:19)
[2017-02-04] MEDS: Lorazepam 2 MG/ML VIAL SLOW IVP PRN ×4 (00:05→22:08)
[2017-02-04] MEDS: Propofol 1,000 MG/100 ML VIAL IV PRN ×8 (00:54→14:08)
[2017-02-04] MEDS: Acetaminophen 650 MG/20.3 ML UDCUP PER TUBE PRN ×2 (03:07→23:22)
[2017-02-04] MEDS: cloNIDine 0.1 MG TAB PO PRN ×3 (03:07→22:10)
[2017-02-04 05:38] LABS: Anion Gap 11 mmol/L (10-20); BUN (Urea Nitrogen) 27 mg/dL (7.0-18.7); Calc. Creatinine Clearance 356 mL/min (70-130); Carbon Dioxide 31 mmol/L (22-29); Chloride 105 mmol/L (98-107); Estimated GFR-MDRD Greater than 90; Glucose 234 mg/dL (70-105); Magnesium 1.6 mg/dL (1.6-2.6); Potassium 5.1 mmol/L (3.5-5.1); Sodium 142 mmol/L (136-145)
[2017-02-04 05:56] LABS: Band 7 % (5-11); Hemoglobin 10.8 g/dL (12.0-16.0); Lymphocytes 7 % (21-51); MDiff Complete? YES; Mean Corpuscular HGB CONC 32.2 g/dL (32.0-36.0); Mean Corpuscular Hemoglobin 31.2 pg (27.0-31.0); Mean Platelet Volume 8.8 fL (7.4-10.4); Monocytes 2 % (0-10); Neutrophil 83 % (42-75); PLT Morphology Comment Appears Adequate; Platelet Count 249 thou/uL (130-400); Polychromasia SLIGHT = 2-3 cells (100X) (0-2/hpf); RBC Distribution Width 12.6 % (11.5-14.5); Reactive Lymphocytes 1 % (0-10); Red Blood Cell (RBC) Count 3.46 mill/uL (4.20-5.40); White Blood Cell (WBC) Count 11.4 thou/uL (4.8-10.8)
[2017-02-04] MEDS: Clindamycin/D5W 900 mg/50 ml Premix Bag IVPB SCH ×3 (06:33→20:18)
[2017-02-04 08:20] LABS: Actual Bicarbonate (HCO3a) 20.8 mEq/L (22-26); Base Excess (BEa) -6.4 mEq/L (0 (+/-) 2.5); CO2 Tension 48.7 mmHg (35.0-45.0); Hematocrit-ABG 25.8 % (36.0-47.0); Hemoglobin (Hb) 10.1 g/dL (12.0-16.0); O2 Tension (PaO2) 115.6 mmHg (80.0-100.0)
[2017-02-04 08:22] LABS: pH, Arterial 7.25 (7.35-7.45)
[2017-02-04 08:23] LABS: ALV-art Gradient 109.125 (0-20); Puncture Site LR
[2017-02-04] MEDS: Enoxaparin Sodium 40 MG/0.4 ML SYRINGE SC SCH (08:29)
[2017-02-04] MEDS: Famotidine 20 MG TAB PER TUBE SCH ×2 (08:29→20:19)
[2017-02-04] MEDS: Saccharomyces boulardii 250 MG CAP PO SCH (08:29)
[2017-02-04] MEDS: Fluconazole 100 MG TAB PO SCH (08:29)
[2017-02-04] MEDS: Nystatin Powder 15 GM BOT TOP SCH ×2 (08:30→20:19)
[2017-02-04] MEDS: Cefepime 2 GM, Syringe 2.5 ML in Sterile Water 10 ML SLOW IVP SCH ×2 (08:47→20:18)
[2017-02-04] MEDS: Insulin Detemir 100 UNITS/ML 50 UNITS in Pre-Filled Syringe 1 EACH SC SCH ×2 (08:47→20:19)
[2017-02-04] MEDS: Insulin Regular 300 UNITS/3 ML VIAL SC PRN ×4 (08:52→23:27)
--- NOTE | 2017-02-04 09:11 | PRG ---
DATE OF SERVICE: 02/04/2017 PULMONARY CRITICAL CARE PROGRESS NOTE Thirty-five minutes critical care time. SUBJECTIVE: Ms. Andrade is intubated and continues on mechanical ventilation. She has two chest tub es in place, 1 with a raging air leak. PHYSICAL EXAMINATION: VITAL SIGNS: On exam, her temperature is 99.6, pulse 79, blood pressure 146/81, O2 sat 99%, 24-hour intake is 3548 and output 1885. Neurologically, she is sedated on propofol. HEENT EXAM: Sclerae anicteric. Oropharynx clear. NECK: No JVD. LUNGS: Coarse breath sounds bilaterally. CARDIOVASCULAR: S1, S2 regular, without murmur. ABDOMEN: Soft, morbidly obese. EXTREMITIES: Edematous throughout. LABORATORY DATA: White blood cell count 11.4, hematocrit 33.5, platelet count 249. Sodium 142, pota ssium 5.1, chloride 105, CO2 of 31, BUN 27, creatinine 0.6, glucose 234, pH 7.25, pCO2 of 48, PO2 of 115. ASSESSMENT: 1. Acute respiratory failure, requiring mechanical ventilation. 2. Necrotizing pneumonia with large right pneumothorax - x-ray still shows bilateral diffuse infiltr ates and a pneumothorax on the right. 3. Influenza A. PLAN: 1. Continue respiratory parameters at current settings. 2. Not weanable. 3. Continue antibiotics. 4. Change to Versed drip and discontinue the propofol, so that we can begin more aggressive nutritio n measures. 5. Prognosis is extremely poor for functional recovery.
--- NOTE | 2017-02-04 09:13 | RAD ---
PORTABLE CHEST ONE VIEW: 02/04/2017 7:40 a.m. HISTORY: Respiratory failure. COMPARISON: Exam from the previous day, at 3:24 p.m. FINDINGS: Tube placements are unchanged. There is a history of opacification in the right hemithorax. A small right pneumothorax is again noted. There is continued subcutaneous emphysema in the right chest wal l. Heart size is stable. POS: [facility]
[2017-02-04] MEDS: fentaNYL Citrate/PF 2,000 MCG in Sodium Chloride 0.9% 60 ML IV SCH ×2 (11:37→21:58)
--- NOTE | 2017-02-04 14:25 | PDOC.PN ---
- Subjective Encounter Start Date: 02/04/17 Encounter Start Time: 12:00 -: non-verbal (PT is Intubated) - Objective Resuscitation Status: Resuscitation Status FULL:Full Resuscitation MAR Reviewed: Yes Vital Signs & Weight: Vital Signs (12 hours) Temp Pulse Resp BP Pulse Ox 02/04/17 14:00 23 H 02/04/17 12:25 66 151/94 H 02/04/17 12:00 98.2 F 27 H 02/04/17 10:28 75 155/92 H 02/04/17 10:00 26 H 02/04/17 08:00 98.6 F 75 26 H 135/70 98 02/04/17 07:00 98.5 F 02/04/17 06:00 24 H 02/04/17 04:00 99.6 F 02/04/17 03:24 79 25 H 97 02/04/17 03:07 175/93 H Weight Admit Weight 414 lb Weight 413 lb 12.8 oz Most Recent Monitor Data Heart Rate from ECG 70 NIBP 142/87 NIBP BP-Mean 97 Respiration from ECG 18 SpO2 100 I&O: 02/03/17 02/04/17 02/05/17 06:59 06:59 06:59 Intake Total 3139 3618.5 60 Output Total 2055 1885 1260 Balance 1084 1733.5 -1200 Result Diagrams: 02/04/17 05:00 02/04/17 05:00 Additional Labs: Accuchecks 02/04/17 02/04/17 02/04/17 11:30 08:46 00:56 POC Glucose 192 H 174 H 198 H 02/03/17 02/03/17 02/03/17 20:20 16:22 11:58 POC Glucose 229 H 229 H 202 H Radiology Reviewed by me: Yes Phys Exam - Physical Examination Neck: no JVD Respiratory: wheezing present Cardiovascular: no significant murmur, no rub Gastrointestinal: soft, no distention Musculoskeletal: edema present Dx/Plan (1) Acute respiratory failure with hypoxia Code(s): J96.01 - ACUTE RESPIRATORY FAILURE WITH HYPOXIA Status: Acute (2) Sepsis Code(s): A41.9 - SEPSIS, UNSPECIFIED ORGANISM Status: Acute Qualifiers: Sepsis type: Streptococcus, other Qualified Code(s): A40.8 - Other streptococcal sepsis (3) Pneumothorax, right Code(s): J93.9 - PNEUMOTHORAX, UNSPECIFIED Status: Acute (4) Morbid obesity Code(s): E66.01 - MORBID (SEVERE) OBESITY DUE TO EXCESS CALORIES Status: Chronic - Plan cont current plan of care, fletcher catheter, continue antibiotics, DVT proph w/ lovenox * . IMPRESSION: 1. Acute hypoxic/hypercapnic Resp failure on Mech Vent 2. Severe sepsis with acute organ dysfunction/Septic shock due to Pneumococcal Pneumonia/Recent Flu A 3. FREDY with Abn LFTs due to sepsis 4. Metabolic acidosis/Lactic acidosis - improved 5. Pneumothorax s/p chest tube 6. DM2/HTN/Morbid Obesity BMI 68.2/Anxiety-Depression PLAN: On Mech Vent completed Tamiflu Cont Atbx/Steroids, pt prognosis is poor due to Morbid obesity and necrosis of Lung parenchyma. AM labs Cont current meds as below On Levemir 50 units BID - Discharge Day Encounter end time: 12:30 Review of Systems - Review of Systems Constitutional: fever Other: Unable to Determine ROS due to pt being sedated and intubated - Medications/Allergies Allergies/Adverse Reactions: Allergies Allergy/AdvReac Type Severity Reaction Status Date / Time No Allergy Information Allergy Verified 02/01/17 20:13 Available Medications: Current Medications Acetaminophen (Tylenol) 650 mg LA Q4H PRN PRN Reason: Headache/Fever or Pain Last Admin: 02/01/17 13:03 Dose: 650 mg Acetaminophen (Tylenol Elixir) 650 mg PER TUBE Q4H PRN PRN Reason: Headache/Fever or Pain Last Admin: 02/04/17 03:07 Dose: 650 mg Albuterol Sulfate (Ventolin) 2.5 mg NEB Q2H PRN PRN Reason: Wheezing Albuterol/Ipratropium (Duoneb) 3 ml NEB [id number] ALICIA Last Admin: 02/04/17 10:28 Dose: 3 ml Clindamycin Phosphate/Dextrose (Cleocin) 900 mg IVPB 0500,1300,2100 [facility] Last Admin: 02/04/17 12:25 Dose: 900 mg Clonidine (Catapres) 0.1 mg PO Q4H PRN PRN Reason: SBP Greater Than 170 Last Admin: 02/04/17 03:07 Dose: 0.1 mg Dextrose/Water (Dextrose 50%) 25 gm SLOW IVP PRN PRN PRN Reason: Hypoglycemia Enoxaparin Sodium (Lovenox) 40 mg SC 0900 [facility] Last Admin: 02/04/17 08:29 Dose: 40 mg Famotidine (Pepcid) 20 mg PER TUBE BID [facility] Last Admin: 02/04/17 08:29 Dose: 20 mg Fluconazole (Diflucan) 100 mg PO DAILY [facility] Last Admin: 02/04/17 08:29 Dose: 100 mg Glucagon (Glucagon) 1 mg IM PRN PRN PRN Reason: Hypoglycemia Norepinephrine Bitartrate (Levophed) 250 mls @ 0 mls/hr IVPB INF [facility]; Titrate PRN Reason: Protocol Last Admin: 01/29/17 20:38 Dose: 250 mls Fentanyl Citrate (Fentanyl Bolus) 250 mls @ 0 mls/hr IVPB PRN PRN; As Directed PRN Reason: Breakthrough pain Stop: 02/26/17 20:40 Cefepime HCl 2 gm/ Syringe 2.5 (ml/ Sterile Water) 12.5 mls @ 150 mls/hr SLOW IVP 0900,2100 [facility] Last Admin: 02/04/17 08:47 Dose: 12.5 mls Sodium Chloride (1/2 Normal Saline) 1,000 mls @ 50 mls/hr IV .Q20H [facility] Last Admin: 02/03/17 22:19 Dose: 1,000 mls Dextrose/Water (D5w) 1,000 mls @ 0 mls/hr IV .Q0M PRN; As Directed PRN Reason: Hypoglycemia Fentanyl Citrate 2,000 mcg/ (Sodium Chloride) 100 mls @ 0 mls/hr IV INF [facility] PRN Reason: As Directed Last Admin: 02/04/17 11:37 Dose: 100 mls Insulin Detemir 50 units/ (Miscellaneous Medication) 0.5 mls @ 0 mls/hr SC BID [facility] Last Admin: 02/04/17 08:47 Dose: 0.5 mls Midazolam HCl (Versed) 100 mls @ 0 mls/hr IVPB INF [facility]; Titrate PRN Reason: Protocol Last Admin: 02/04/17 11:49 Dose: 100 mls Insulin Human Regular (Humulin R) 0 units SC .AGGRESSIVE SLIDING PRN PRN Reason: Aggressive Sliding Scale Last Admin: 02/04/17 11:37 Dose: 3 unit Lorazepam (Ativan) 2 mg SLOW IVP Q2H PRN PRN Reason: Anxiety to achieve Hinojosa 2-3 Stop: 02/26/17 20:40 Last Admin: 02/04/17 00:05 Dose: 2 mg Methylprednisolone Sodium Succinate (Solu-Medrol) 20 mg IVP BID [facility] Last Admin: 02/04/17 08:28 Dose: 20 mg Morphine Sulfate (Morphine) 2 mg IVP Q2H PRN PRN Reason: Breakthrough pain Stop: 02/26/17 20:43 Last Admin: 02/02/17 02:54 Dose: 2 mg Discontinue Previous Narcotic Pain Medications And Benzodiazepines 1 each FS .ONE [facility] Stop: 02/26/17 20:40 Nystatin (Mycostatin Powder) 0 gm TOP BID [facility] Last Admin: 02/04/17 08:30 Dose: 1 applic Propofol (Diprivan) 1,000 mg IV INF PRN; Protocol PRN Reason: TO ACHIEVE HNIOJOSA SCORE 2-3 Stop: 02/26/17 20:40 Last Admin: 02/04/17 14:08 Dose: 1,000 mg Saccharomyces Boulardii (Florastor) 250 mg PO DAILY [facility] Last Admin: 02/04/17 08:29 Dose: 250 mg Sodium Chloride (Flush - Normal Saline) 10 ml IVF PRN PRN PRN Reason: Saline Flush Last Admin: 02/04/17 08:29 Dose: 10 ml
[2017-02-04] MEDS: Sodium Chloride 0.45% 1,000 ML IV SCH (20:32)
[2017-02-05] MEDS: Sodium Chloride 0.45% 1,000 ML IV SCH ×2 (00:52→18:04)
[2017-02-05] MEDS: Lorazepam 2 MG/ML VIAL SLOW IVP PRN ×4 (02:30→23:34)
[2017-02-05] MEDS: Insulin Regular 300 UNITS/3 ML VIAL SC PRN ×5 (03:25→23:40)
[2017-02-05] MEDS: Clindamycin/D5W 900 mg/50 ml Premix Bag IVPB SCH ×3 (04:08→19:45)
[2017-02-05 06:07] LABS: Anion Gap 11 mmol/L (10-20); BUN (Urea Nitrogen) 20 mg/dL (7.0-18.7); Calc. Creatinine Clearance 410 mL/min (70-130); Carbon Dioxide 31 mmol/L (22-29); Chloride 101 mmol/L (98-107); Estimated GFR-MDRD Greater than 90; Glucose 170 mg/dL (70-105); Potassium 4.4 mmol/L (3.5-5.1); Sodium 139 mmol/L (136-145)
[2017-02-05 06:14] LABS: Band 2 % (5-11); Hemoglobin 10.6 g/dL (12.0-16.0); Lymphocytes 17 % (21-51); MDiff Complete? YES; Mean Corpuscular HGB CONC 31.6 g/dL (32.0-36.0); Mean Corpuscular Hemoglobin 30.6 pg (27.0-31.0); Mean Corpuscular Volume 96.6 fl (81.0-99.0); Mean Platelet Volume 8.1 fL (7.4-10.4); Monocytes 5 % (0-10); Neutrophil 76 % (42-75); PLT Morphology Comment Appears Adequate; Platelet Count 263 thou/uL (130-400); RBC Distribution Width 12.5 % (11.5-14.5); Red Blood Cell (RBC) Count 3.46 mill/uL (4.20-5.40); White Blood Cell (WBC) Count 11.8 thou/uL (4.8-10.8)
[2017-02-05 07:30] LABS: Actual Bicarbonate (HCO3a) 30.9 mEq/L (22-26); Base Excess (BEa) 5.1 mEq/L (0 (+/-) 2.5); CO2 Tension 51.6 mmHg (35.0-45.0); Calcium, Ionized 1.2 mmol/L (1.12-1.30); Hemoglobin (Hb) 10.7 g/dL (12.0-16.0); O2 Tension (PaO2) 68.8 mmHg (80.0-100.0)
[2017-02-05 07:31] LABS: Puncture Site RR
[2017-02-05] MEDS: Fluconazole 100 MG TAB PO SCH (08:04)
[2017-02-05] MEDS: Saccharomyces boulardii 250 MG CAP PO SCH (08:05)
[2017-02-05] MEDS: Famotidine 20 MG TAB PER TUBE SCH ×2 (08:05→19:45)
[2017-02-05] MEDS: Enoxaparin Sodium 40 MG/0.4 ML SYRINGE SC SCH (08:05)
[2017-02-05] MEDS: Nystatin Powder 15 GM BOT TOP SCH ×2 (08:08→19:52)
[2017-02-05] MEDS: cloNIDine 0.1 MG TAB PO PRN ×2 (08:16→13:42)
--- NOTE | 2017-02-05 08:32 | RAD ---
PORTABLE CHEST 1 VIEW: DATE: 02/05/17. TIME: 4:47 a.m. HISTORY: Respiratory failure. FINDINGS/IMPRESSION: Comparison is made with the exam of the previous day. Endotracheal and nasogastric tubes remain in place. There is a suggestion of replacement/repositioni ng of the right-sided chest tubes. There is worsening of opacification in the right hemithorax. Imp rovement is seen in the right lateral chest wall subcutaneous emphysema. No definite pneumothoraces are identified. There is worsening of opacification of the right hemithorax. No definite pneumothor ax is seen. POS: [facility]
[2017-02-05] MEDS: Cefepime 2 GM, Syringe 2.5 ML in Sterile Water 10 ML SLOW IVP SCH ×2 (09:55→19:43)
[2017-02-05] MEDS: Insulin Detemir 100 UNITS/ML 50 UNITS in Pre-Filled Syringe 1 EACH SC SCH ×2 (09:55→19:58)
[2017-02-05] MEDS: fentaNYL Citrate/PF 2,000 MCG in Sodium Chloride 0.9% 60 ML IV SCH ×2 (10:00→18:47)
[2017-02-05] MEDS ORDERED: Rocuronium Bromide 50 MG/5 ML VIAL ONE (10:16)
[2017-02-05] MEDS ORDERED: Rocuronium Bromide 50 MG/5 ML VIAL IVP SCH (10:45)
--- NOTE | 2017-02-05 10:48 | PDOC.PN ---
- Subjective Encounter Start Date: 02/05/17 Encounter Start Time: 10:00 Patient is seen today off of her sedation, she remains altered and is in distress, so her Blood pressures were shooting up. Patient is on Fentanyl drip for pain. She is getting a loading bolus of fentanyl. - Objective Resuscitation Status: Resuscitation Status FULL:Full Resuscitation MAR Reviewed: Yes Vital Signs & Weight: Vital Signs (12 hours) Temp Pulse Resp BP Pulse Ox 02/05/17 08:16 176/82 H 02/05/17 07:40 94 150/86 H 02/05/17 06:00 24 H 02/05/17 04:00 20 02/05/17 03:00 97.6 F 02/05/17 02:34 94 21 H 95 02/05/17 02:00 27 H 02/05/17 00:00 25 H 02/04/17 23:00 97.8 F Weight Admit Weight 414 lb Weight 414 lb Most Recent Monitor Data Heart Rate from ECG 120 NIBP 196/120 NIBP BP-Mean 134 Respiration from ECG 19 SpO2 98 I&O: 02/04/17 02/05/17 02/06/17 06:59 06:59 06:59 Intake Total 3618.5 2557.6 Output Total 1885 3430 Balance 1733.5 -872.4 Result Diagrams: 02/05/17 05:13 02/05/17 05:13 Additional Labs: Accuchecks 02/05/17 02/05/17 02/04/17 08:23 03:24 23:27 POC Glucose 106 165 H 168 H 02/04/17 02/04/17 02/04/17 20:18 15:27 11:30 POC Glucose 144 H 192 H 192 H 02/04/17 08:46 POC Glucose 174 H Radiology Reviewed by me: Yes Phys Exam - Physical Examination HEENT: PERRLA, moist MMs Neck: no nodes, no JVD Respiratory: wheezing present (reduced lung sounds in right lung) Cardiovascular: RRR, no significant murmur Gastrointestinal: non-tender Dx/Plan (1) Acute respiratory failure with hypoxia Code(s): J96.01 - ACUTE RESPIRATORY FAILURE WITH HYPOXIA Status: Acute Plan: Persistant Respiratory failure on Bilevel ventilation, pulomary onboard, poor prognsosis from Worsening Chest xray with Necrosis of rght panrencmal lung. Continue IV Antibitoics Cefepime and Clindamycin (2) Sepsis Code(s): A41.9 - SEPSIS, UNSPECIFIED ORGANISM Status: Acute Qualifiers: Sepsis type: Streptococcus, other Qualified Code(s): A40.8 - Other streptococcal sepsis Plan: Sepsis is Improving, will continue on IV antibiotics. pt remains on levophed. C; losley Monitor along with Pulmonary. (3) Pneumothorax, right Code(s): J93.9 - PNEUMOTHORAX, UNSPECIFIED Status: Acute Plan: Pt has Chest tubes drains with contnous suction, serosanguinous dischagre. Chest xray showed improveemnt of pneumothorax but worsening right lung opacities. (4) Morbid obesity Code(s): E66.01 - MORBID (SEVERE) OBESITY DUE TO EXCESS CALORIES Status: Chronic - Plan cont current plan of care, continue antibiotics, DVT proph w/SCDs * . - Discharge Day Encounter end time: 10:30 Review of Systems - Review of Systems Neurological: Confusion Other: Pt is Altered and off of sedation today, - Medications/Allergies Allergies/Adverse Reactions: Allergies Allergy/AdvReac Type Severity Reaction Status Date / Time No Allergy Information Allergy Verified 02/01/17 20:13 Available Medications: Current Medications Acetaminophen (Tylenol) 650 mg [place] Q4H PRN PRN Reason: Headache/Fever or Pain Last Admin: 02/01/17 13:03 Dose: 650 mg Acetaminophen (Tylenol Elixir) 650 mg PER TUBE Q4H PRN PRN Reason: Headache/Fever or Pain Last Admin: 02/04/17 23:22 Dose: 650 mg Albuterol Sulfate (Ventolin) 2.5 mg NEB Q2H PRN PRN Reason: Wheezing Albuterol/Ipratropium (Duoneb) 3 ml NEB [id number] ALICIA Last Admin: 02/05/17 07:39 Dose: 3 ml Clindamycin Phosphate/Dextrose (Cleocin) 900 mg IVPB 0500,1300,2100 [facility] Last Admin: 02/05/17 04:08 Dose: 900 mg Clonidine (Catapres) 0.1 mg PO Q4H PRN PRN Reason: SBP Greater Than 170 Last Admin: 02/05/17 08:16 Dose: 0.1 mg Dextrose/Water (Dextrose 50%) 25 gm SLOW IVP PRN PRN PRN Reason: Hypoglycemia Enoxaparin Sodium (Lovenox) 40 mg SC 0900 [facility] Last Admin: 02/05/17 08:05 Dose: 40 mg Famotidine (Pepcid) 20 mg PER TUBE BID [facility] Last Admin: 02/05/17 08:05 Dose: 20 mg Fluconazole (Diflucan) 100 mg PO DAILY [facility] Last Admin: 02/05/17 08:04 Dose: 100 mg Glucagon (Glucagon) 1 mg IM PRN PRN PRN Reason: Hypoglycemia Norepinephrine Bitartrate (Levophed) 250 mls @ 0 mls/hr IVPB INF [facility]; Titrate PRN Reason: Protocol Last Admin: 01/29/17 20:38 Dose: 250 mls Fentanyl Citrate (Fentanyl Bolus) 250 mls @ 0 mls/hr IVPB PRN PRN; As Directed PRN Reason: Breakthrough pain Stop: 02/26/17 20:40 Cefepime HCl 2 gm/ Syringe 2.5 (ml/ Sterile Water) 12.5 mls @ 150 mls/hr SLOW IVP 0900,2100 [facility] Last Admin: 02/05/17 09:55 Dose: 12.5 mls Sodium Chloride (1/2 Normal Saline) 1,000 mls @ 50 mls/hr IV .Q20H [facility] Last Admin: 02/05/17 00:52 Dose: Not Given Dextrose/Water (D5w) 1,000 mls @ 0 mls/hr IV .Q0M PRN; As Directed PRN Reason: Hypoglycemia Fentanyl Citrate 2,000 mcg/ (Sodium Chloride) 100 mls @ 0 mls/hr IV INF [facility] PRN Reason: As Directed Last Admin: 02/05/17 10:00 Dose: 100 mls Insulin Detemir 50 units/ (Miscellaneous Medication) 0.5 mls @ 0 mls/hr SC BID [facility] Last Admin: 02/05/17 09:55 Dose: Not Given Midazolam HCl (Versed) 100 mls @ 0 mls/hr IVPB INF [facility]; Titrate PRN Reason: Protocol Last Admin: 02/05/17 01:04 Dose: 100 mls Insulin Human Regular (Humulin R) 0 units SC .AGGRESSIVE SLIDING PRN PRN Reason: Aggressive Sliding Scale Last Admin: 02/05/17 03:25 Dose: 3 unit Lorazepam (Ativan) 2 mg SLOW IVP Q2H PRN PRN Reason: Anxiety to achieve Hinojosa 2-3 Stop: 02/26/17 20:40 Last Admin: 02/05/17 10:03 Dose: 2 mg Methylprednisolone Sodium Succinate (Solu-Medrol) 20 mg IVP BID [facility] Last Admin: 02/05/17 08:08 Dose: 20 mg Morphine Sulfate (Morphine) 2 mg IVP Q2H PRN PRN Reason: Breakthrough pain Stop: 02/26/17 20:43 Last Admin: 02/02/17 02:54 Dose: 2 mg Discontinue Previous Narcotic Pain Medications And Benzodiazepines 1 each FS .ONE [facility] Stop: 02/26/17 20:40 Nystatin (Mycostatin Powder) 0 gm TOP BID [facility] Last Admin: 02/05/17 08:08 Dose: 1 applic Propofol (Diprivan) 1,000 mg IV INF PRN; Protocol PRN Reason: TO ACHIEVE HINOJOSA SCORE 2-3 Stop: 02/26/17 20:40 Last Admin: 02/04/17 14:08 Dose: 1,000 mg Rocuronium [place] (Zemuron) 50 mg IVP NOW [facility] Stop: 02/05/17 12:45 Saccharomyces Boulardii (Florastor) 250 mg PO DAILY [facility] Last Admin: 02/05/17 08:05 Dose: 250 mg Sodium Chloride (Flush - Normal Saline) 10 ml IVF PRN PRN PRN Reason: Saline Flush Last Admin: 02/05/17 08:06 Dose: 10 ml
--- NOTE | 2017-02-05 16:45 | PRG ---
DATE OF SERVICE: 02/05/2017 Thirty-five minutes critical care time. SUBJECTIVE: The patient remains intubated on mechanical ventilation. She is a little agitated this morning. After sedation was held, she did follow commands for me without difficulty. PHYSICAL EXAMINATION: VITAL SIGNS: Her temperature is 97.6, pulse 92, blood pressure 137/75. A 24 hour intake, 2557, tota l output 3430. HEENT: Unremarkable. NECK: No JVD. LUNGS: Diminished breath sounds bilaterally. She has an air leak to the right chest tube. CARDIOVASCULAR: S1, S2 regular. ABDOMEN: Soft, obese. Nontender, nondistended. EXTREMITIES: Generalized edema. LABORATORY DATA: PH 7.40, pCO2 51, pO2 of 68, that was on bilevel rate 20 with a high PEEP 32, low P EEP 12 and FiO2 of 40%. Sodium 139, potassium 4.4, chloride 101, CO2 31, BUN 20, creatinine 0.6, glu cose 170. White blood cell 11.9, hematocrit 33.4, platelet count 263. X-RAY FINDINGS: Chest x-ray shows dense infiltrate on the right; it looks like the lung is more up t brown it was before. Left lung is fairly clear. ASSESSMENT: 1. Right-sided pneumothorax. 2. Necrotizing pneumonia on the right. 3. Acute respiratory failure requiring mechanical ventilation. 4. Influenza type A. PLAN: 1. She is not weanable at this time. We will continue mechanical ventilation at current settings. 2. Continue chest tube, Pleur-Evac drainage. 3. Continue IV antibiotics. 4. Continue enteral tube feeds.
[2017-02-06] MEDS: Acetaminophen 650 MG/20.3 ML UDCUP PER TUBE PRN (00:22)
[2017-02-06] MEDS: Clindamycin/D5W 900 mg/50 ml Premix Bag IVPB SCH ×2 (04:09→13:38)
[2017-02-06] MEDS: Insulin Regular 300 UNITS/3 ML VIAL SC PRN ×4 (04:17→23:48)
[2017-02-06] MEDS: fentaNYL Citrate/PF 2,000 MCG in Sodium Chloride 0.9% 60 ML IV SCH ×2 (04:55→14:44)
[2017-02-06 05:14] LABS: Anion Gap 10 mmol/L (10-20); BUN (Urea Nitrogen) 20 mg/dL (7.0-18.7); Calc. Creatinine Clearance 417 mL/min (70-130); Calcium 9.2 mg/dL (7.8-10.44); Carbon Dioxide 30 mmol/L (22-29); Chloride 99 mmol/L (98-107); Estimated GFR-MDRD Greater than 90; Glucose 266 mg/dL (70-105); Potassium 4.7 mmol/L (3.5-5.1); Sodium 134 mmol/L (136-145)
[2017-02-06 05:38] LABS: Band 3 % (5-11); Hemoglobin 10.6 g/dL (12.0-16.0); Lymphocytes 12 % (21-51); MDiff Complete? YES; Mean Corpuscular HGB CONC 31.5 g/dL (32.0-36.0); Mean Corpuscular Hemoglobin 30.4 pg (27.0-31.0); Mean Corpuscular Volume 96.5 fl (81.0-99.0); Mean Platelet Volume 8.5 fL (7.4-10.4); Monocytes 3 % (0-10); Neutrophil 82 % (42-75); PLT Morphology Comment Appears Adequate; Platelet Count 290 thou/uL (130-400); RBC Distribution Width 12.5 % (11.5-14.5); White Blood Cell (WBC) Count 11.7 thou/uL (4.8-10.8)
[2017-02-06 08:19] LABS: Actual Bicarbonate (HCO3a) 30.9 mEq/L (22-26); Base Excess (BEa) 4.5 mEq/L (0 (+/-) 2.5); CO2 Tension 55.5 mmHg (35.0-45.0); Calcium, Ionized 1.2 mmol/L (1.12-1.30); Hematocrit-ABG 36.1 % (36.0-47.0); Hemoglobin (Hb) 10.9 g/dL (12.0-16.0); O2 Tension (PaO2) 81.5 mmHg (80.0-100.0); pH, Arterial 7.36 (7.35-7.45)
[2017-02-06 08:20] LABS: Puncture Site RRA
[2017-02-06 08:21] LABS: ALV-art Gradient 139.925 (0-20)
[2017-02-06] MEDS: Cefepime 2 GM, Syringe 2.5 ML in Sterile Water 10 ML SLOW IVP SCH (08:55)
[2017-02-06] MEDS: Enoxaparin Sodium 40 MG/0.4 ML SYRINGE SC SCH (08:56)
[2017-02-06] MEDS: Famotidine 20 MG TAB PER TUBE SCH ×2 (08:56→21:08)
[2017-02-06] MEDS: Fluconazole 100 MG TAB PO SCH (08:57)
[2017-02-06] MEDS: Saccharomyces boulardii 250 MG CAP PO SCH (08:57)
[2017-02-06] MEDS: Nystatin Powder 15 GM BOT TOP SCH ×2 (08:57→21:09)
[2017-02-06] MEDS ORDERED: Insulin Detemir 100 UNITS/ML 55 UNITS in Pre-Filled Syringe 1 EACH SC SCH (09:00)
[2017-02-06] MEDS: cloNIDine 0.1 MG TAB PO PRN (09:13)
[2017-02-06] MEDS: Lorazepam 2 MG/ML VIAL SLOW IVP PRN (09:14)
[2017-02-06] MEDS ORDERED: Furosemide 20 MG/2 ML VIAL SLOW IVP SCH (13:30)
[2017-02-06] MEDS: Sodium Chloride 0.45% 1,000 ML IV SCH (13:39)
--- NOTE | 2017-02-06 13:45 | PRG ---
DATE OF SERVICE: 02/06/2017 SERVICE: Pulmonary Medicine. INTERVAL HISTORY: The patient is doing very poorly from a respiratory standpoint. Oxygen requiremen ts remain elevated. She cannot provide me any additional elements of the history, as she is way too heavily sedated. With deep stimulation, she will wake up for less than 1 second and drift right back to sleep. When she does wake up, she attends and can nod yes or no very briefly. PHYSICAL EXAMINATION: VITAL SIGNS: Afebrile with a T-max of 100.2, pulse 100, blood pressure 121/49, respirations 19, satu ration 95% on very high levels of oxygen support. HEENT: Normocephalic, atraumatic. Sclerae are white, conjunctivae pink. Oral and nasal mucosa are moist without lesions. LUNGS: Decent air entry. Rhonchi are present throughout bilateral lung carlos. HEART: Normal rate, regular. ABDOMEN: Soft, nontender, nondistended. Bowel sounds are positive. MUSCULOSKELETAL: No cyanosis or clubbing. There is no pitting in the bilateral lower extremities. NEUROLOGIC: Grossly nonfocal. LABORATORY DATA: WBC 11.7, hemoglobin 10.6, platelets 290,000. PH of 7.36, pCO2 of 55, pO2 of 81. This is on 40% FiO2 with bilevel. Creatinine 0.58. Basic metabolic profile is otherwise unremarkabl e. Urinalysis is negative. C. difficile antigen and toxin is unremarkable. Respiratory cultures ne gative to date, blood cultures x2, urine culture is negative. Original blood culture was positive fo r Streptococcus pneumoniae as well as coag-negative staph. IMAGING: Chest x-ray demonstrates right-sided thoracostomy drain is in position. There is joselyn-opac ification of essentially the entirety of the right lung. Cardiomegaly is evident. Trachea is midlin e. Carinal angle remains sharp. Endotracheal tube is roughly 2 cm below the level of the etta. ASSESSMENT: 1. Severe sepsis secondary to Streptococcus pneumoniae and influenza A. 2. Spontaneous secondary pneumothorax on the right, status post thoracostomy drain. 3. Acute hypoxic respiratory failure. 4. Morbid obesity. 5. Chronic hypercapnic respiratory failure. 6. Acute hypoxic respiratory failure. PLAN: Her sedation level is currently too deep. We will see if we can wean away some of the fentany l and the Versed in favor of something like Precedex. If she becomes more appropriate, hopefully she will be able to participate with physical therapy. She has been mechanically ventilated for over a week now, and over the next 24-48 hours, if she does not have a significant improvement in her oxygen ation requirements and strength, a tracheostomy will need to be considered. Pulmonary Critical Care will continue to follow while the patient remains in this location. Critical care time: 30 minutes.
--- NOTE | 2017-02-06 14:42 | RAD ---
RADIOGRAPH CHEST 1 VIEW: Date: 02/06/17. Time: 4:54 a.m. HISTORY: Respiratory failure. COMPARISON: 02/05/17, 4:47 a.m. FINDINGS: Severe, almost total, dense opacification of the right lung, except for multifocal pockets of lucency . Right-sided chest tube takes a tortuous, serpiginous course. Endotracheal tube and NG tube remain . Retrocardiac portion of the left lower lobe is opacified. Small portion of the left upper lobe re velasquez aerated. Low image resolution because of large body habitus. No definite interval change. IMPRESSION: 1. No interval change. 2. Near-total opacification of right lung. 3. No change in life support lines. DEMETRIA [] POS: FRANCISCO
[2017-02-06] MEDS: Insulin Regular 300 UNITS/3 ML VIAL SC SCH ×2 (17:32→23:51)
[2017-02-06] MEDS: Insulin Detemir 100 UNITS/ML 45 UNITS in Pre-Filled Syringe SC SCH (21:08)
[2017-02-06] MEDS: clonazePAM 1 MG TAB PO SCH (21:08)
[2017-02-07] MEDS: fentaNYL Citrate/PF 2,000 MCG in Sodium Chloride 0.9% 60 ML IV SCH ×2 (01:39→15:26)
[2017-02-07 04:52] LABS: Anion Gap 10 mmol/L (10-20); BUN (Urea Nitrogen) 20 mg/dL (7.0-18.7); Calc. Creatinine Clearance 422 mL/min (70-130); Calcium 9.8 mg/dL (7.8-10.44); Carbon Dioxide 34 mmol/L (22-29); Chloride 98 mmol/L (98-107); Estimated GFR-MDRD Greater than 90; Glucose 187 mg/dL (70-105); Magnesium 1.5 mg/dL (1.6-2.6); Phosphorus 3.4 mg/dL (2.3-4.7); Sodium 138 mmol/L (136-145)
[2017-02-07 04:55] LABS: Band 3 % (5-11); Eosinophils 1 % (0-10); Hemoglobin 10.3 g/dL (12.0-16.0); Lymphocytes 29 % (21-51); MDiff Complete? YES; Mean Corpuscular HGB CONC 31.7 g/dL (32.0-36.0); Mean Corpuscular Hemoglobin 30.6 pg (27.0-31.0); Mean Corpuscular Volume 96.2 fl (81.0-99.0); Mean Platelet Volume 8.2 fL (7.4-10.4); Monocytes 6 % (0-10); Neutrophil 61 % (42-75); PLT Morphology Comment Appears Adequate; Platelet Count 285 thou/uL (130-400); RBC Distribution Width 12.4 % (11.5-14.5); Red Blood Cell (RBC) Count 3.36 mill/uL (4.20-5.40); White Blood Cell (WBC) Count 10.6 thou/uL (4.8-10.8)
[2017-02-07] MEDS: Insulin Regular 300 UNITS/3 ML VIAL SC SCH ×4 (05:51→23:29)
[2017-02-07 07:57] LABS: Actual Bicarbonate (HCO3a) 32.5 mEq/L (22-26); Base Excess (BEa) 6.5 mEq/L (0 (+/-) 2.5); CO2 Tension 53.8 mmHg (35.0-45.0); Calcium, Ionized 1.3 mmol/L (1.12-1.30); Hematocrit-ABG 34.4 % (36.0-47.0); Hemoglobin (Hb) 10.6 g/dL (12.0-16.0); O2 Tension (PaO2) 71.3 mmHg (80.0-100.0)
[2017-02-07 08:16] LABS: Puncture Site RRA
[2017-02-07] MEDS: Fluconazole 100 MG TAB PO SCH (09:14)
[2017-02-07] MEDS: Enoxaparin Sodium 40 MG/0.4 ML SYRINGE SC SCH (09:14)
[2017-02-07] MEDS: clonazePAM 1 MG TAB PO SCH ×2 (09:14→21:19)
[2017-02-07] MEDS: Famotidine 20 MG TAB PER TUBE SCH ×2 (09:15→21:19)
[2017-02-07] MEDS: Insulin Detemir 100 UNITS/ML 45 UNITS in Pre-Filled Syringe SC SCH ×2 (09:15→21:19)
[2017-02-07] MEDS: Saccharomyces boulardii 250 MG CAP PO SCH (09:16)
--- NOTE | 2017-02-07 10:00 | RAD ---
CHEST ONE VIEW: History: Chest tube. Pneumonia. Intubation. Comparison: Prior day. FINDINGS: Patient is intubated. Endotracheal tube tip is above the etta approximately 2.5 cm. Right sided tho racostomy tubes are similar. Large right layering pleural effusion. Aeration of the right and left gary ng are similar. Atelectatic changes of the left lower lobe, possible consolidation. Enteric tube tip not well seen. There appear to be a few air fluid levels in the right lung which may represent recent cavitation. IMPRESSION: 1. Endotracheal tube tip 2.5 cm cranial to the etta. 2. Enteric tube tip not well seen. 3. Similar aeration of the right and left lung with possible areas of cavitation in the right lung. POS: OFF
--- NOTE | 2017-02-07 15:00 | PDOC.PN ---
- Subjective Encounter Start Date: 02/06/17 Encounter Start Time: 09:00 -: non-verbal Pt remains intubated and Depely Sedated. No family at bedside. - Objective Resuscitation Status: Resuscitation Status FULL:Full Resuscitation MAR Reviewed: Yes Vital Signs & Weight: Vital Signs (12 hours) Temp Pulse Resp BP Pulse Ox 02/07/17 10:47 92 120/65 02/07/17 10:45 89 20 96 02/07/17 07:44 99 131/78 02/07/17 07:43 100 22 H 99 02/07/17 06:00 23 H 02/07/17 04:00 99.3 F 26 H Weight Admit Weight 414 lb Weight 414 lb Most Recent Monitor Data Heart Rate from ECG 101 NIBP 178/90 NIBP BP-Mean 116 Respiration from ECG 23 SpO2 100 I&O: 02/06/17 02/07/17 02/08/17 06:59 06:59 06:59 Intake Total 2561 3274.2 Output Total 3520 5165 Balance -959 -6600.8 Result Diagrams: 02/07/17 04:07 02/07/17 04:07 Additional Labs: Accuchecks 02/07/17 02/07/17 02/06/17 12:36 05:51 23:45 POC Glucose 236 H 139 H 161 H 02/06/17 02/06/17 02/06/17 21:08 18:18 16:18 POC Glucose 179 H 228 H 256 H Radiology Reviewed by me: Yes Phys Exam - Physical Examination Neck: no nodes, no JVD Respiratory: wheezing present Cardiovascular: RRR, no significant murmur Gastrointestinal: non-tender Musculoskeletal: edema present Dx/Plan (1) Acute respiratory failure with hypoxia Code(s): J96.01 - ACUTE RESPIRATORY FAILURE WITH HYPOXIA Status: Acute (2) Sepsis Code(s): A41.9 - SEPSIS, UNSPECIFIED ORGANISM Status: Acute Qualifiers: Sepsis type: Streptococcus, other Qualified Code(s): A40.8 - Other streptococcal sepsis (3) Pneumothorax, right Code(s): J93.9 - PNEUMOTHORAX, UNSPECIFIED Status: Acute (4) Morbid obesity Code(s): E66.01 - MORBID (SEVERE) OBESITY DUE TO EXCESS CALORIES Status: Chronic - Plan cont current plan of care, continue antibiotics, DVT proph w/lovenox * . Dx/Plan (1) Acute respiratory failure with hypoxia Persistant Respiratory failure on Bilevel ventilation, pulomary onboard, poor prognsosis from Worsening Chest xray with Necrosis of rght panrencmal lung. Continue IV Antibitoics Cefepime and Clindamycin (2) Sepsis streptococcal sepsis Sepsis is Improving, will continue on IV antibiotics. pt remains on levophed. C; losley Monitor along with Pulmonary. (3) Pneumothorax, right Pt has Chest tubes drains with contnous suction, serosanguinous dischagre. Chest xray showed improveemnt of pneumothorax but worsening right lung opacities.Pulmonary recommedations. (4) Morbid obesity cont current plan of care, continue antibiotics, DVT proph w/SCDs - Discharge Day Encounter end time: 09:30 Review of Systems - Review of Systems Other: Unable to review her Systems due to sedation - Medications/Allergies Allergies/Adverse Reactions: Allergies Allergy/AdvReac Type Severity Reaction Status Date / Time cephalexin [From Keflex] Allergy Verified 02/05/17 18:56 Medications: Current Medications Acetaminophen (Tylenol) 650 mg [place] Q4H PRN PRN Reason: Headache/Fever or Pain Last Admin: 02/01/17 13:03 Dose: 650 mg Acetaminophen (Tylenol Elixir) 650 mg PER TUBE Q4H PRN PRN Reason: Headache/Fever or Pain Last Admin: 02/06/17 00:22 Dose: 650 mg Albuterol Sulfate (Ventolin) 2.5 mg NEB Q2H PRN PRN Reason: Wheezing Albuterol/Ipratropium (Duoneb) 3 ml NEB [id number] [facility] Last Admin: 02/07/17 10:45 Dose: 3 ml Clonazepam (Klonopin) 1 mg PO BID [facility] Last Admin: 02/07/17 09:14 Dose: 1 mg Clonidine (Catapres) 0.1 mg PO Q4H PRN PRN Reason: SBP Greater Than 170 Last Admin: 02/06/17 09:13 Dose: 0.1 mg Dextrose/Water (Dextrose 50%) 25 gm SLOW IVP PRN PRN PRN Reason: Hypoglycemia Enoxaparin Sodium (Lovenox) 40 mg SC 0900 [facility] Last Admin: 02/07/17 09:14 Dose: 40 mg Famotidine (Pepcid) 20 mg PER TUBE BID [facility] Last Admin: 02/07/17 09:15 Dose: 20 mg Fluconazole (Diflucan) 100 mg PO DAILY [facility] Last Admin: 02/07/17 09:14 Dose: 100 mg Glucagon (Glucagon) 1 mg IM PRN PRN PRN Reason: Hypoglycemia Fentanyl Citrate (Fentanyl Bolus) 250 mls @ 0 mls/hr IVPB PRN PRN; As Directed PRN Reason: Breakthrough pain Stop: 02/26/17 20:40 Dextrose/Water (D5w) 1,000 mls @ 0 mls/hr IV .Q0M PRN; As Directed PRN Reason: Hypoglycemia Fentanyl Citrate 2,000 mcg/ (Sodium Chloride) 100 mls @ 0 mls/hr IV INF [facility] PRN Reason: As Directed Last Admin: 02/07/17 01:39 Dose: 100 mls Midazolam HCl (Versed) 100 mls @ 0 mls/hr IVPB INF [facility]; Titrate PRN Reason: Protocol Last Admin: 02/07/17 02:16 Dose: 100 mls Sodium Chloride (1/2 Normal Saline) 1,000 mls @ 0 mls/hr IV .Q0M ALICIA PRN Reason: KVO Insulin Detemir 45 units/ (Miscellaneous Medication) 0.45 mls @ 0 mls/hr SC BID [facility] PRN Reason: As Directed Last Admin: 02/07/17 09:15 Dose: 0.45 mls Dexmedetomidine HCl 400 mcg/ (Sodium Chloride) 100 mls @ 0 mls/hr IVPB INF [facility] ; Per Protocol PRN Reason: Protocol Last Admin: 02/07/17 11:31 Dose: 100 mls Insulin Human Regular (Humulin R) 0 units SC .AGGRESSIVE SLIDING PRN PRN Reason: Aggressive Sliding Scale Last Admin: 02/06/17 23:48 Dose: 3 unit Insulin Human Regular (Humulin R) 10 units SC Q6HR [facility] Last Admin: 02/07/17 12:37 Dose: 10 unit Methylprednisolone Sodium Succinate (Solu-Medrol) 20 mg IVP DAILY [facility] Last Admin: 02/07/17 09:15 Dose: 20 mg Discontinue Previous Narcotic Pain Medications And Benzodiazepines 1 each FS .ONE [facility] Stop: 02/26/17 20:40 Nystatin (Mycostatin Powder) 0 gm TOP BID [facility] Last Admin: 02/06/17 21:09 Dose: 1 applic Propofol (Diprivan) 1,000 mg IV INF PRN; Protocol PRN Reason: TO ACHIEVE HINOJOSA SCORE 2-3 Stop: 02/26/17 20:40 Last Admin: 02/04/17 14:08 Dose: 1,000 mg Quetiapine Fumarate (Seroquel) 25 mg PO BID [facility] Last Admin: 02/07/17 09:16 Dose: 25 mg Saccharomyces Boulardii (Florastor) 250 mg PO DAILY [facility] Last Admin: 02/07/17 09:16 Dose: 250 mg Sodium Chloride (Flush - Normal Saline) 10 ml IVF PRN PRN PRN Reason: Saline Flush Last Admin: 02/05/17 08:06 Dose: 10 ml
--- NOTE | 2017-02-07 15:03 | PDOC.PN ---
- Subjective Encounter Start Date: 02/07/17 Encounter Start Time: 08:45 -: non-verbal Patient is intubated and Sedated. No family at bedside. - Objective Resuscitation Status: Resuscitation Status FULL:Full Resuscitation MAR Reviewed: Yes Vital Signs & Weight: Vital Signs (12 hours) Temp Pulse Resp BP Pulse Ox 02/07/17 10:47 92 120/65 02/07/17 10:45 89 20 96 02/07/17 07:44 99 131/78 02/07/17 07:43 100 22 H 99 02/07/17 06:00 23 H 02/07/17 04:00 99.3 F 26 H Weight Admit Weight 414 lb Weight 414 lb Most Recent Monitor Data Heart Rate from ECG 101 NIBP 178/90 NIBP BP-Mean 116 Respiration from ECG 23 SpO2 100 I&O: 02/06/17 02/07/17 02/08/17 06:59 06:59 06:59 Intake Total 2561 3274.2 Output Total 3520 5165 Balance -959 -5060.8 Result Diagrams: 02/07/17 04:07 02/07/17 04:07 Additional Labs: Accuchecks 02/07/17 02/07/17 02/06/17 12:36 05:51 23:45 POC Glucose 236 H 139 H 161 H 02/06/17 02/06/17 02/06/17 21:08 18:18 16:18 POC Glucose 179 H 228 H 256 H Radiology Reviewed by me: Yes Phys Exam - Physical Examination Neck: no nodes, no JVD Respiratory: wheezing present Cardiovascular: RRR, no significant murmur Gastrointestinal: soft Musculoskeletal: edema present Dx/Plan (1) Acute respiratory failure with hypoxia Code(s): J96.01 - ACUTE RESPIRATORY FAILURE WITH HYPOXIA Status: Acute (2) Sepsis Code(s): A41.9 - SEPSIS, UNSPECIFIED ORGANISM Status: Acute Qualifiers: Sepsis type: Streptococcus, other Qualified Code(s): A40.8 - Other streptococcal sepsis (3) Pneumothorax, right Code(s): J93.9 - PNEUMOTHORAX, UNSPECIFIED Status: Acute (4) Morbid obesity Code(s): E66.01 - MORBID (SEVERE) OBESITY DUE TO EXCESS CALORIES Status: Chronic - Plan cont current plan of care, continue antibiotics, DVT proph w/SCDs * . Dx/Plan (1) Acute respiratory failure with hypoxia Persistant Respiratory failure on Bilevel ventilation, pulomary onboard, poor prognsosis from Worsening Chest xray with Necrosis of rght panrencmal lung. Continue IV Antibitoics Cefepime and Clindamycin, Plan per Dr. Freedman is to [place] in 24-48 hrs with low sedation with precedex and plan for Tracheostomy. (2) Sepsis streptococcal sepsis Sepsis is Improving, will continue on IV antibiotics. pt remains on levophed. C; losley Monitor along with Pulmonary. (3) Pneumothorax, right Pt has Chest tubes drains with contnous suction, serosanguinous dischagre. Chest xray showed improveemnt of pneumothorax but worsening right lung opacities.Pulmonary recommedations. (4) Morbid obesity cont current plan of care, continue antibiotics, DVT proph w/SCDs 5. DVT prophylaxis: SCD Review of Systems - Review of Systems Other: No ROS is done due to pt condition. - Medications/Allergies Allergies/Adverse Reactions: Allergies Allergy/AdvReac Type Severity Reaction Status Date / Time cephalexin [From Keflex] Allergy Verified 02/05/17 18:56 Medications: Current Medications Acetaminophen (Tylenol) 650 mg [place] Q4H PRN PRN Reason: Headache/Fever or Pain Last Admin: 02/01/17 13:03 Dose: 650 mg Acetaminophen (Tylenol Elixir) 650 mg PER TUBE Q4H PRN PRN Reason: Headache/Fever or Pain Last Admin: 02/06/17 00:22 Dose: 650 mg Albuterol Sulfate (Ventolin) 2.5 mg NEB Q2H PRN PRN Reason: Wheezing Albuterol/Ipratropium (Duoneb) 3 ml NEB N6ED-OR [facility] Last Admin: 02/07/17 10:45 Dose: 3 ml Clonazepam (Klonopin) 1 mg PO BID [facility] Last Admin: 02/07/17 09:14 Dose: 1 mg Clonidine (Catapres) 0.1 mg PO Q4H PRN PRN Reason: SBP Greater Than 170 Last Admin: 02/06/17 09:13 Dose: 0.1 mg Dextrose/Water (Dextrose 50%) 25 gm SLOW IVP PRN PRN PRN Reason: Hypoglycemia Enoxaparin Sodium (Lovenox) 40 mg SC 0900 [facility] Last Admin: 02/07/17 09:14 Dose: 40 mg Famotidine (Pepcid) 20 mg PER TUBE BID [facility] Last Admin: 02/07/17 09:15 Dose: 20 mg Fluconazole (Diflucan) 100 mg PO DAILY [facility] Last Admin: 02/07/17 09:14 Dose: 100 mg Glucagon (Glucagon) 1 mg IM PRN PRN PRN Reason: Hypoglycemia Fentanyl Citrate (Fentanyl Bolus) 250 mls @ 0 mls/hr IVPB PRN PRN; As Directed PRN Reason: Breakthrough pain Stop: 02/26/17 20:40 Dextrose/Water (D5w) 1,000 mls @ 0 mls/hr IV .Q0M PRN; As Directed PRN Reason: Hypoglycemia Fentanyl Citrate 2,000 mcg/ (Sodium Chloride) 100 mls @ 0 mls/hr IV INF [facility] PRN Reason: As Directed Last Admin: 02/07/17 01:39 Dose: 100 mls Midazolam HCl (Versed) 100 mls @ 0 mls/hr IVPB INF [facility]; Titrate PRN Reason: Protocol Last Admin: 02/07/17 14:49 Dose: 100 mls Sodium Chloride (1/2 Normal Saline) 1,000 mls @ 0 mls/hr IV .Q0M [facility] PRN Reason: KVO Insulin Detemir 45 units/ (Miscellaneous Medication) 0.45 mls @ 0 mls/hr SC BID [facility] PRN Reason: As Directed Last Admin: 02/07/17 09:15 Dose: 0.45 mls Dexmedetomidine HCl 400 mcg/ (Sodium Chloride) 100 mls @ 0 mls/hr IVPB INF [facility] ; Per Protocol PRN Reason: Protocol Last Admin: 02/07/17 11:31 Dose: 100 mls Insulin Human Regular (Humulin R) 0 units SC .AGGRESSIVE SLIDING PRN PRN Reason: Aggressive Sliding Scale Last Admin: 02/06/17 23:48 Dose: 3 unit Insulin Human Regular (Humulin R) 10 units SC Q6HR [facility] Last Admin: 02/07/17 12:37 Dose: 10 unit Methylprednisolone Sodium Succinate (Solu-Medrol) 20 mg IVP DAILY [facility] Last Admin: 02/07/17 09:15 Dose: 20 mg Discontinue Previous Narcotic Pain Medications And Benzodiazepines 1 each FS .ONE [facility] Stop: 02/26/17 20:40 Nystatin (Mycostatin Powder) 0 gm TOP BID [facility] Last Admin: 02/06/17 21:09 Dose: 1 applic Propofol (Diprivan) 1,000 mg IV INF PRN; Protocol PRN Reason: TO ACHIEVE HINOJOSA SCORE 2-3 Stop: 02/26/17 20:40 Last Admin: 02/04/17 14:08 Dose: 1,000 mg Quetiapine Fumarate (Seroquel) 25 mg PO BID [facility] Last Admin: 02/07/17 09:16 Dose: 25 mg Saccharomyces Boulardii (Florastor) 250 mg PO DAILY [facility] Last Admin: 02/07/17 09:16 Dose: 250 mg Sodium Chloride (Flush - Normal Saline) 10 ml IVF PRN PRN PRN Reason: Saline Flush Last Admin: 02/05/17 08:06 Dose: 10 ml
[2017-02-07] MEDS ORDERED: Lorazepam 2 MG/ML VIAL ONE (15:45)
[2017-02-07] MEDS: Nystatin Powder 15 GM BOT TOP SCH ×2 (15:45→21:20)
[2017-02-07] MEDS: Lorazepam 2 MG/ML VIAL SLOW IVP PRN (15:46)
[2017-02-07] MEDS: Insulin Regular 300 UNITS/3 ML VIAL SC PRN ×2 (21:20→23:16)
--- NOTE | 2017-02-08 00:49 | CON ---
DATE OF CONSULTATION: 02/07/2017 REASON FOR CONSULTATION: Respiratory failure and dysphagia. HISTORY: Ms. Andrade is a 31-year-old woman who presented to the hospital on 01/27/2017 with acute o nset of shortness of breath. She was placed on BiPAP for a while, but then had to be intubated. Acc ording to the chart, all of her children have been diagnosed with influenza and she was recently diag nosed with pneumonia on the day before her presentation to the emergency room. Apparently, she delay ed seeking medical care and was critically ill with sepsis requiring ventilatory support and pressors . 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 However, because of her morbid obesity, difficulty weaning, and severe pneumonia, a tracheostomy has been requested. She has an orogastric tube in place and has been tolerating tube feeds with res iduals in the 200-250 mL range and a PEG tube has been requested as well if technically feasible. PAST MEDICAL HISTORY: Hypertension, diabetes, and also medical noncompliance according to the family . PAST SURGICAL HISTORY: Tonsillectomy, tubal ligation, laparoscopic cholecystectomy, and four C-secti ons. SOCIAL HISTORY: Negative for tobacco, drug, and alcohol abuse. OUTPATIENT MEDICATIONS: Unknown, although she was apparently prescribed Zithromax and Levaquin on day prior to her presentation. INPATIENT MEDICATIONS: Include DuoNeb, clonazepam, dexmedetomidine, Lovenox, Pepcid, fentanyl, Diflu can, sliding scale insulin, Solu-Medrol 20 mg daily, Versed, propofol, Seroquel, Florastor, p.r.n. Ty lenol, albuterol, and clonidine. IMAGING: Chest x-ray today showed possible areas of cavitation of the right lung, atelectasis versus consolidation of the left lower lobe and a few air fluid levels on the right side with two right-joyce ed thoracostomy tubes and a large effusion on that side as well. PHYSICAL EXAMINATION: VITAL SIGNS: T-max 100, T-current 99.3, heart rate 89, blood pressure 134/83, 97% saturated with a r espiratory rate of 21. GENERAL: Reveals a super morbidly obese woman with a BMI of 68.9 who is basically unresponsive, but intermittently gets agitated. NECK: Short, but supple. No lymphadenopathy. There is one finger's breadth between the sternal not ch and the cricoid, although the cricoid is quite difficult to palpate. HEART: Regular in its rate and rhythm without murmurs, rubs, or gallops, although heart sounds are d istant. Breath sounds are coarse bilaterally and distant. She has two chest tubes on the right side . I did not see any air leak blister on suction with serosanguineous drainage. ABDOMEN: Soft and nondistended. She does not have any apparent pain with palpation, no palpable mas ses or hernias. Occasional distant bowel sounds are audible. EXTREMITIES: Warm and well perfused with slight edema at the ankles. NEUROLOGIC AND PSYCHIATRIC: Unable to be evaluated as the patient is sedated, becomes agitated when her sedation is reduced. LABORATORY DATA: White count is 11.7, hematocrit 33.7, platelets 290. Electrolytes are unremarkable except for elevated bicarbonate at 34. Blood gas showed a pH of 7.4, pCO2 of 53, and pO2 of 71 on 4 0% FiO2 and pressure support ventilation. C. diff is negative. Blood cultures came back positive fo r Strep pneumonia and coag negative Staph on admission. She is positive for influenza A, negative fo r influenza B. Bronchial washing cultures were negative. ASSESSMENT: Severe influenza and respiratory failure, unable to be successfully weaned from the vent ilator and requiring tracheostomy placement. Due to her respiratory failure, she is unable to swallo w safely and a PEG tube has been requested as well. If this is technically feasible, it will be perf ormed, but due to her super morbid obesity, she may not have an adequate finger to do this safe ly, in which case, we will continue with nasogastric feedings. The patient does not have any family immediately available, but we will try to contact to them for telephone consent. Risks of tracheosto my include but are not limited to bleeding, infection, risks of anesthesia, loss of airway, , an d damage to nearby structures including blood vessels and thyroid. Risks of PEG tube placement inclu de but are not limited to bleeding, infection, risks of anesthesia, bowel perforation, or damage to o ther structures including colon and small intestine as well as leakage from the PEG tube or displacem ent of the PEG tube and resulting peritonitis or sepsis. The family can be contacted. We will plan on performing these procedures tomorrow. Antibiotics will be ordered area operations manager to the OR.
[2017-02-08] MEDS: Sodium Chloride 0.45% 1,000 ML IV SCH ×2 (00:51→15:45)
[2017-02-08] MEDS: fentaNYL Citrate/PF 2,000 MCG in Sodium Chloride 0.9% 60 ML IV SCH ×2 (02:48→17:36)
[2017-02-08 06:07] LABS: Anion Gap 13 mmol/L (10-20); BUN (Urea Nitrogen) 19 mg/dL (7.0-18.7); Calc. Creatinine Clearance 455 mL/min (70-130); Calcium 9.8 mg/dL (7.8-10.44); Carbon Dioxide 33 mmol/L (22-29); Chloride 100 mmol/L (98-107); Estimated GFR-MDRD Greater than 90; Glucose 117 mg/dL (70-105); Magnesium 1.7 mg/dL (1.6-2.6); Phosphorus 4.1 mg/dL (2.3-4.7); Potassium 4.5 mmol/L (3.5-5.1); Sodium 141 mmol/L (136-145)
--- NOTE | 2017-02-08 06:11 | PRG ---
DATE OF SERVICE: 02/07/2017 SUBJECTIVE: Ms. Andrade has made a lot of progress in the last week. She remains mechanically ventilated. When she is light on sedation, she gets very tachypneic. OBJECTIVE: VITAL SIGNS: Blood pressure has fluctuated throughout the day, has been as high as 209/120, although given her size, I am not sure these are accurate blood pressure readings. Current blood pressure is 134/83, heart rate is in the 80s. Respiratory rate is in the 20s. LUNGS: Distant and clear anteriorly. HEART: Regular rhythm. S1 and S2 are distant. ABDOMEN: Soft and nontender. EXTREMITIES: With asymmetry. LABORATORY DATA: White count 10.6, hemoglobin 10.3, platelets 285. Sodium 130, potassium 4, chlorid e 98, bicarbonate 34, BUN 20, creatinine 0.5, pH 7.4, CO2 of 53, pO2 71. Chest radiograph shows bila teral infiltrates. There are some changes in the right base, which suggest maybe abscess development . IMPRESSION: 1. Respiratory failure secondary to pneumococcal pneumonia with sepsis after influenza. 2. Deconditioning. Her mother is at the bedside today, sat down with her and talked her for about 2 0 minutes. Apparently, Ms. Andrade had just obtained disability. Her disability apparently was sarah beth use of her obesity. Her mother says that her daughter battled with depression and is unwilling to tr y to get her job. Her mother encouraged her for a couple years to try to go to work, find a job marky eving that if she was working she would do better from a functional standpoint, she since obtained di sability and has been very inactive although she does have 4 children at home. In any event, she wou ld best be served with a tracheostomy plus or minus a PEG tube. If General Surgery feels one is feas ible, her obesity is a huge impediment to a functional recovery, as I have explained to the mother an d I would anticipate that she will be in a care environment for at least a month or more before she w as able to return home assuming she has no complications and assuming she successfully weans from mec hanical ventilation. I will review her radiographs over the next day or two, consider a CT scanning to better define her p arenchymal abnormalities. She is quite large and difficult to move. I am not sure the scanner will handle her weight given that she is 5'5", 414 pounds reported. At this point in time, she is stable. I have explained to the mother that there is no active guarant ee that she would survive this illness. I have also explained to the mother that if she does not suc cessfully find a way to lose weight within the next 5-10 years, assuming she does survive that will p robably the extent of her life. I doubt she will make past 40 with this size. Critical care time 35 minutes independent of the time spent with the mother.
[2017-02-08] MEDS: Insulin Regular 300 UNITS/3 ML VIAL SC SCH ×4 (06:13→23:28)
[2017-02-08 06:38] LABS: Band 3 % (5-11); Hemoglobin 10.1 g/dL (12.0-16.0); Lymphocytes 20 % (21-51); MDiff Complete? YES; Mean Corpuscular HGB CONC 32.1 g/dL (32.0-36.0); Mean Corpuscular Volume 96.7 fl (81.0-99.0); Mean Platelet Volume 7.9 fL (7.4-10.4); Monocytes 3 % (0-10); Neutrophil 74 % (42-75); PLT Morphology Comment Appears Adequate; Platelet Count 293 thou/uL (130-400); RBC Distribution Width 12.5 % (11.5-14.5); RBC Morphology Normal; Red Blood Cell (RBC) Count 3.25 mill/uL (4.20-5.40); White Blood Cell (WBC) Count 11.8 thou/uL (4.8-10.8)
--- NOTE | 2017-02-08 07:08 | PRG ---
DATE OF SERVICE: 02/08/2017 Ms. Andrade remains mechanically ventilated. PHYSICAL EXAMINATION: VITAL SIGNS: Respiratory rate is in the teens, blood pressure 140/76. Oximetry is 99, heart rate in the 80s. She is in sinus rhythm. LUNGS: Lungs remarkable for coarse equal breath sounds. HEART: Regular rhythm. ABDOMEN: Soft. LABORATORY DATA: White count 11.8, hemoglobin 10.1, platelets 293,000. Sodium 141, potassium 4.5, chloride 100, bicarbonate 33, BUN 19, creatinine 0.53, glucose 117, blood gas is pending. She will have a chest radiograph after tracheostomy today. IMPRESSION: 1. Respiratory failure associated with pneumococcal pneumonia and bacteremia, should have been adequ ately treated with the IV antibiotics at this point. 2. Life threatening obesity. 3. Deconditioning. PLAN: Tracheostomy, plus or minus a PEG if feasible today then progressive weaning after the tracheo stomy. Continue nutritional support after that. She remains critically ill, but stable. Her decond itioning is the biggest obstacle she faces from a recovery standpoint as I explained to her mother ye sterday. Critical care time was 30 minutes.
[2017-02-08] MEDS: clonazePAM 1 MG TAB PO SCH ×2 (09:21→21:17)
[2017-02-08] MEDS: Famotidine 20 MG TAB PER TUBE SCH ×2 (09:21→21:17)
[2017-02-08] MEDS: Enoxaparin Sodium 40 MG/0.4 ML SYRINGE SC SCH (09:22)
[2017-02-08] MEDS: Saccharomyces boulardii 250 MG CAP PO SCH (09:22)
[2017-02-08] MEDS: Fluconazole 100 MG TAB PO SCH (09:22)
[2017-02-08] MEDS: Insulin Detemir 100 UNITS/ML 45 UNITS in Pre-Filled Syringe SC SCH ×2 (09:22→20:25)
[2017-02-08] MEDS: Nystatin Powder 15 GM BOT TOP SCH ×2 (09:45→20:26)
[2017-02-08] MEDS ORDERED: Ondansetron HCl/PF 4 MG/2 ML Vial ONE (11:48)
[2017-02-08] MEDS ORDERED: Vecuronium 10 MG VIAL ONE ×2 (11:48→14:22)
[2017-02-08] MEDS ORDERED: Metoclopramide HCl 10 MG/2 ML VIAL ONE (11:48)
[2017-02-08 12:08] LABS: BHCG - Serum Negative (NEGATIVE); Pregs Control Background? CLEAR/WHITE (CLR/WHITE); Pregs Control Bar Appear? YES (CONTROL BAR)
[2017-02-08] MEDS ORDERED: Bupivacaine/Epinephrine 0.25% 30 ML VIAL ONE (12:29)
[2017-02-08] MEDS ORDERED: Lidocaine 1% (PF) 30 ML VIAL ONE (12:29)
[2017-02-08] MEDS ORDERED: Midazolam HCl 5 mg/5 ml Vial ONE (12:31)
[2017-02-08] MEDS ORDERED: Fentanyl 100 MCG/2 ML VIAL ONE ×2 (12:31→14:22)
[2017-02-08] MEDS ORDERED: Sterile Water 10 ML ONE (15:13)
--- NOTE | 2017-02-08 15:22 | PDOC.PN ---
- Subjective Encounter Start Date: 02/08/17 Encounter Start Time: 11:00 Pt is non verbal, no family at Bedside - Objective Resuscitation Status: Resuscitation Status FULL:Full Resuscitation MAR Reviewed: Yes Vital Signs & Weight: Vital Signs (12 hours) Temp Pulse Resp BP Pulse Ox 02/08/17 12:00 99.6 F 17 02/08/17 11:28 85 116/64 02/08/17 11:27 86 29 H 96 02/08/17 10:00 20 02/08/17 08:00 98.9 F 78 17 96 02/08/17 07:51 77 137/78 02/08/17 07:50 77 24 H 99 02/08/17 06:00 18 02/08/17 04:00 17 Weight Admit Weight 414 lb Weight 413 lb 6.4 oz Most Recent Monitor Data Heart Rate from ECG 92 NIBP 146/83 NIBP BP-Mean 101 Respiration from ECG 19 SpO2 90 I&O: 02/07/17 02/08/17 02/09/17 06:59 06:59 06:59 Intake Total 3274.2 2238.2 Output Total 5165 2645 295 Balance -1890.8 -406.8 -295 Result Diagrams: 02/08/17 05:30 02/08/17 05:30 Additional Labs: Accuchecks 02/08/17 02/08/17 02/07/17 12:37 05:38 23:14 POC Glucose 164 H 111 H 164 H 02/07/17 02/07/17 21:19 18:49 POC Glucose 160 H 192 H Radiology Reviewed by me: Yes Phys Exam - Physical Examination HEENT: PERRLA, moist MMs Neck: no nodes, no JVD Respiratory: wheezing present Cardiovascular: RRR Gastrointestinal: non-tender Musculoskeletal: no edema, pulses present Neurological: non-focal, normal sensation Lymphatic: no nodes Psychiatric: normal affect, A&O x 3 Dx/Plan (1) Acute respiratory failure with hypoxia Code(s): J96.01 - ACUTE RESPIRATORY FAILURE WITH HYPOXIA Status: Acute (2) Sepsis Code(s): A41.9 - SEPSIS, UNSPECIFIED ORGANISM Status: Acute Qualifiers: Sepsis type: Streptococcus, other Qualified Code(s): A40.8 - Other streptococcal sepsis (3) Pneumothorax, right Code(s): J93.9 - PNEUMOTHORAX, UNSPECIFIED Status: Acute (4) Morbid obesity Code(s): E66.01 - MORBID (SEVERE) OBESITY DUE TO EXCESS CALORIES Status: Chronic - Plan cont current plan of care, DVT proph w/SCDs Dx/Plan (1) Acute respiratory failure with hypoxia Persistant Respiratory failure on Bilevel ventilation, pulomary onboard, poor prognsosis from Worsening Chest xray with Necrosis of rght panrencmal lung. plan for Tracheostomy tomorrow, plan to Stop Abx by Pulmonary. poor prognosis. (2) Sepsis streptococcal sepsis Sepsis is Improving, will continue on IV antibiotics. pt remains on levophed. C; losley Monitor along with Pulmonary. (3) Pneumothorax, right Pt has Chest tubes drains with contnous suction, serosanguinous dischagre. Chest xray showed improveemnt of pneumothorax but worsening right lung opacities.Pulmonary recommedations. (4) Morbid obesity cont current plan of care, continue antibiotics, DVT proph w/SCDs - Discharge Day Encounter end time: 11:30 Review of Systems - Review of Systems Constitutional: negative: fever, chills, sweats, weakness, malaise, other Eyes: negative: Pain, Vision Change, Conjunctivae Inflammation, Eyelid Inflammation, Redness, Other ENT: negative: Ear Pain, Ear Discharge, Nose Pain, Nose Discharge, Nose Congestion, Mouth Pain, Mouth Swelling, Throat Pain, Throat Swelling, Other Respiratory: negative: Cough, Dry, Shortness of Breath, Hemoptysis, SOB with Excertion, Pleuritic Pain, Sputum, Wheezing Cardiovascular: negative: chest pain, palpitations, orthopnea, paroxysmal nocturnal dyspnea, edema, light headedness, other Gastrointestinal: negative: Nausea, Vomiting, Abdominal Pain, Diarrhea, Constipation, Melena, Hematochezia, Other Genitourinary: negative: Dysuria, Frequency, Incontinence, Hematuria, Retention , Other Musculoskeletal: negative: Neck Pain, Shoulder Pain, Arm Pain, Back Pain, Hand Pain, Leg Pain, Foot Pain, Other Skin: negative: Rash, Lesions, Jono, Bruising, Other Neurological: negative: Weakness, Numbness, Incoordination, Change in Speech, Confusion, Seizures, Other Other: Unable to perform ROS. - Medications/Allergies Allergies/Adverse Reactions: Allergies Allergy/AdvReac Type Severity Reaction Status Date / Time cephalexin [From Keflex] Allergy Verified 02/05/17 18:56 Medications: Current Medications Acetaminophen (Tylenol) 650 mg LA Q4H PRN PRN Reason: Headache/Fever or Pain Last Admin: 02/01/17 13:03 Dose: 650 mg Acetaminophen (Tylenol Elixir) 650 mg PER TUBE Q4H PRN PRN Reason: Headache/Fever or Pain Last Admin: 02/06/17 00:22 Dose: 650 mg Albuterol Sulfate (Ventolin) 2.5 mg NEB Q2H PRN PRN Reason: Wheezing Albuterol/Ipratropium (Duoneb) 3 ml NEB U4BP-QG [facility] Last Admin: 02/08/17 11:27 Dose: 3 ml Clonazepam (Klonopin) 1 mg PO BID [facility] Last Admin: 02/08/17 09:21 Dose: Not Given Clonidine (Catapres) 0.1 mg PO Q4H PRN PRN Reason: SBP Greater Than 170 Last Admin: 02/06/17 09:13 Dose: 0.1 mg Dextrose/Water (Dextrose 50%) 25 gm SLOW IVP PRN PRN PRN Reason: Hypoglycemia Enoxaparin Sodium (Lovenox) 40 mg SC 0900 [facility] Last Admin: 02/08/17 09:22 Dose: Not Given Famotidine (Pepcid) 20 mg PER TUBE BID [facility] Last Admin: 02/08/17 09:21 Dose: Not Given Fluconazole (Diflucan) 100 mg PO DAILY [facility] Last Admin: 02/08/17 09:22 Dose: Not Given Glucagon (Glucagon) 1 mg IM PRN PRN PRN Reason: Hypoglycemia Fentanyl Citrate (Fentanyl Bolus) 250 mls @ 0 mls/hr IVPB PRN PRN; As Directed PRN Reason: Breakthrough pain Stop: 02/26/17 20:40 Dextrose/Water (D5w) 1,000 mls @ 0 mls/hr IV .Q0M PRN; As Directed PRN Reason: Hypoglycemia Fentanyl Citrate 2,000 mcg/ (Sodium Chloride) 100 mls @ 0 mls/hr IV INF ALICIA PRN Reason: As Directed Last Admin: 02/08/17 02:48 Dose: 100 mls Midazolam HCl (Versed) 100 mls @ 0 mls/hr IVPB INF [facility]ICIA; Titrate PRN Reason: Protocol Last Admin: 02/08/17 02:49 Dose: 100 mls Sodium Chloride (1/2 Normal Saline) 1,000 mls @ 0 mls/hr IV .Q0M [facility]ICIA PRN Reason: KVO Last Admin: 02/08/17 00:51 Dose: 1,000 mls Insulin Detemir 45 units/ (Miscellaneous Medication) 0.45 mls @ 0 mls/hr SC BID [facility] PRN Reason: As Directed Last Admin: 02/08/17 09:22 Dose: Not Given Dexmedetomidine HCl 400 mcg/ (Sodium Chloride) 100 mls @ 0 mls/hr IVPB INF [facility] ; Per Protocol PRN Reason: Protocol Last Admin: 02/08/17 10:21 Dose: 100 mls Insulin Human Regular (Humulin R) 0 units SC .AGGRESSIVE SLIDING PRN PRN Reason: Aggressive Sliding Scale Last Admin: 02/07/17 23:16 Dose: 3 unit Insulin Human Regular (Humulin R) 10 units SC Q6HR [facility] Last Admin: 02/08/17 14:59 Dose: Not Given Lorazepam (Ativan) 2 mg SLOW IVP Q2H PRN PRN Reason: Anxiety to achieve Hinojosa 2-3 Stop: 03/09/17 15:43 Last Admin: 02/07/17 15:46 Dose: 2 mg Methylprednisolone Sodium Succinate (Solu-Medrol) 20 mg IVP DAILY [facility] Last Admin: 02/08/17 09:45 Dose: 20 mg Discontinue Previous Narcotic Pain Medications And Benzodiazepines 1 each FS .ONE [facility] Stop: 02/26/17 20:40 Nystatin (Mycostatin Powder) 0 gm TOP BID [facility] Last Admin: 02/08/17 09:45 Dose: 1 applic Propofol (Diprivan) 1,000 mg IV INF PRN; Protocol PRN Reason: TO ACHIEVE HINOJOSA SCORE 2-3 Stop: 02/26/17 20:40 Last Admin: 02/04/17 14:08 Dose: 1,000 mg Quetiapine Fumarate (Seroquel) 25 mg PO BID [facility] Last Admin: 02/08/17 09:22 Dose: Not Given Saccharomyces Boulardii (Florastor) 250 mg PO DAILY [facility] Last Admin: 02/08/17 09:22 Dose: Not Given Sodium Chloride (Flush - Normal Saline) 10 ml IVF PRN PRN PRN Reason: Saline Flush Last Admin: 02/05/17 08:06 Dose: 10 ml
--- NOTE | 2017-02-08 15:53 | RAD ---
CHEST ONE VIEW: History: Post op. Comparison: Prior day. FINDINGS: Enteric tube is present with the tip below the diaphragm and out of the field of view. Patient appear s to have a tracheostomy. Lung inflation is very, very poor. There appears to be some leftward shift of the mediastinum. Multiple irregular opacities lucencies are present projecting over the right joselyn thorax. Multiple thoracostomy tubes are present. There is kinking of the right thoracostomy tube. IMPRESSION: Severely poor aeration of the lungs concerning for possible leftward mediastinal shift. There are cys tic appearing lucencies throughout the right hemithorax. CT is recommended. POS: [facility]
[2017-02-08] MEDS: Lorazepam 2 MG/ML VIAL SLOW IVP PRN (16:21)
[2017-02-08] MEDS: Propofol 1,000 MG/100 ML VIAL IV PRN ×3 (16:45→21:24)
--- NOTE | 2017-02-08 20:25 | RAD ---
EXAM: ONE VIEW ABDOMEN 02/08/17 HISTORY: NG tube placement. COMPARISON: None. FINDINGS: There appears to be a right sided chest tube projecting over the right hemithorax. There appears to b e a catheter projecting over the midline of the thorax which is of uncertain etiology. Possibility of endotracheal tube cannot be excluded. There is another catheter projecting over the left aspect of t he midline, projecting over the left upper quadrant. Etiology of this tube is uncertain. Consider rep eat imaging with a separate chest and separate abdomen radiograph. IMPRESSION: Suboptimal exam. Consider repeat imaging. POS: [facility]
[2017-02-09] MEDS: Propofol 1,000 MG/100 ML VIAL IV PRN ×3 (00:09→08:54)
[2017-02-09] MEDS: cloNIDine 0.1 MG TAB PO PRN (04:39)
[2017-02-09 05:22] LABS: Band 3 % (5-11); Eosinophils 3 % (0-10); Lymphocytes 33 % (21-51); MDiff Complete? YES; Mean Corpuscular HGB CONC 32.7 g/dL (32.0-36.0); Mean Corpuscular Hemoglobin 31.4 pg (27.0-31.0); Mean Platelet Volume 8.3 fL (7.4-10.4); Monocytes 5 % (0-10); Neutrophil 56 % (42-75); Platelet Count 346 thou/uL (130-400); RBC Distribution Width 12.5 % (11.5-14.5); Red Blood Cell (RBC) Count 3.17 mill/uL (4.20-5.40); White Blood Cell (WBC) Count 10.3 thou/uL (4.8-10.8)
[2017-02-09 05:30] LABS: Anion Gap 13 mmol/L (10-20); BUN (Urea Nitrogen) 20 mg/dL (7.0-18.7); Calc. Creatinine Clearance 447 mL/min (70-130); Calcium 9.7 mg/dL (7.8-10.44); Carbon Dioxide 32 mmol/L (22-29); Chloride 98 mmol/L (98-107); Estimated GFR-MDRD Greater than 90; Glucose 98 mg/dL (70-105); Magnesium 1.5 mg/dL (1.6-2.6); Phosphorus 3.1 mg/dL (2.3-4.7); Sodium 139 mmol/L (136-145)
[2017-02-09] MEDS: fentaNYL Citrate/PF 2,000 MCG in Sodium Chloride 0.9% 60 ML IV SCH (05:43)
[2017-02-09] MEDS: Insulin Regular 300 UNITS/3 ML VIAL SC SCH ×3 (07:10→21:02)
--- NOTE | 2017-02-09 07:44 | PDOC.OP ---
Operative Note - Operative Note Operative Note: PROCEDURE: Tracheostomy and attempted percutaneous endoscopic gastrostomy tube placement SURGEON: Radha Julio M.D. PREOPERATIVE DIAGNOSIS: Respiratory failure and dysphagia POSTOPERATIVE DIAGNOSIS: Respiratory failure and dysphagia HISTORY: Patient is a 31-year-old woman who presented with severe pneumococcal pneumonia. She has been intubated since her admission and requires a tracheostomy for attempted weaning from the ventilator. Due to her critical condition she is unable to swallow safely and a PEG tube has also been requested. PROCEDURE IN DETAIL: After informed consent was obtained and appropriate preoperative antibiotics were administered the patient was taken to the operating room and placed in supine position and general endotracheal anesthesia administered through the pre-existing endotracheal tube. The neck and chest were prepped and draped in the standard sterile fashion and local anesthesia infused the skin and subcutaneous tissues anterior to the trachea. A longitudinal incision was made and dissection carried down to the pretracheal fascia, dividing the isthmus of the thyroid with electrocautery. The cricoid cartilage and the first 3 tracheal rings were clearly exposed. Inspiratory oxygen levels were turned down by anesthesia to the lowest possible level prior to any entry into the trachea and no electrocautery was used after that point. Two traction sutures were placed around the third tracheal ring laterally and an incision made between the second and third tracheal rings. A tracheal foreign agent was used to dilate the tracheostomy and the endotracheal tube was withdrawn to just above the level of the tracheostomy. A #8 Bivona tracheostomy was placed under direct vision into the trachea and the balloon was inflated. This was seated at the 8 cm mike at the skin. The inner obturator was removed and an inner cannula placed. The extension tubing was passed off the field to anesthesia and equal inspiratory and expiratory volumes were confirmed. End tidal CO2 was confirmed as well. Hemostasis at the operative site was confirmed and the old endotracheal tube was removed. The skin was reapproximated superior and inferior to the tracheostomy with Prolene sutures and the tracheostomy secured to the skin in 4 locations. A gauze dressing was placed around the tracheostomy and tracheostomy collar was secured. Attention was then turned to PEG tube placement The gastroscope was passed down into the stomach under direct vision. The esophagus was grossly normal and the stomach insufflated normally. A finger impulse was clearly seen in the antrum with palpation in the left upper quadrant. This skin was sterilely prepped and local anesthesia infused. The skin incision was made and a needle and sheath advanced through the skin incision. This indented the stomach but would not reach all the way into the gastric lumen. Therefore this was removed and a sterile dressing placed at the attempted PEG tube site. The endoscope was removed and an nasogastric tube placed with return of bilious drainage. The patient was taken back to critical care in good condition. There are no specimens. Assessment left was minimal. There were no evident complications.
[2017-02-09] MEDS: Insulin Detemir 100 UNITS/ML 45 UNITS in Pre-Filled Syringe SC SCH ×2 (08:51→21:02)
[2017-02-09] MEDS: clonazePAM 1 MG TAB PO SCH ×2 (08:51→20:43)
[2017-02-09] MEDS: Famotidine 20 MG TAB PER TUBE SCH ×2 (08:52→20:43)
[2017-02-09] MEDS: Saccharomyces boulardii 250 MG CAP PO SCH (08:52)
[2017-02-09] MEDS: Fluconazole 100 MG TAB PO SCH (08:52)
[2017-02-09] MEDS: Enoxaparin Sodium 40 MG/0.4 ML SYRINGE SC SCH (08:53)
[2017-02-09] MEDS: Nystatin Powder 15 GM BOT TOP SCH ×2 (08:53→22:31)
[2017-02-09] MEDS ORDERED: Enalaprilat Dihydrate 1.25 MG/ML VIAL SLOW IVP PRN (09:16)
--- NOTE | 2017-02-09 09:48 | PRG ---
DATE OF SERVICE: 02/09/2017 SUBJECTIVE: The patient is seen and examined at bedside. She is in CCU bed 10. She is status post tracheostomy tube placement on a ventilator with sedation. OBJECTIVE: VITAL SIGNS: Blood pressure is 157/95, pulse is 122, respiratory rate is 20, pulse oximetry is 98%. GENERAL: When she is prompt, she opens her eyes. HEENT: Her pupils are responding to light properly. Sclerae is nonicteric. She has NG tube in the left nostril. She has a tracheostomy tube placed in the neck. She is connected to ventilator. HEART: S1, S2, somewhat distant, no S3, no S4. ABDOMEN: Obese, soft, nontender. Bowel sounds are present. LUNGS: Breath sounds diminished at both bases. Two chest tubes coming from the right chest. EXTREMITIES: No clubbing, cyanosis or edema. NEUROLOGIC: Postponed since she is sedated. LABORATORY DATA: Showed a white count of 10.3, hemoglobin 10.0, hematocrit 30.5, platelet count is 3 46,000. Electrolytes: Sodium of 139, potassium 4.0, chloride 98, CO2 32, BUN 20, creatinine 0.54, m agnesium 1.5. Microbiology: No new findings. No new testing. IMPRESSION: 1. Acute respiratory failure with hypoxia. 2. Streptococcal sepsis. 3. Pneumothorax on the right side. Two chest tubes in place, not putting out much. 4. Morbid obesity. PLAN: The patient had a tracheostomy tube placed yesterday. Her sedation is decreased significantly . Her blood pressure seems to be a problem. We tried to manage with p.r.n. IV hypotensive. We are going to start her on tube feeding today and she will continue on Solu-Medrol 20 mg IV push q.24 hour s. She will continue on fluconazole 100 mg daily and she will continue on DuoNeb scheduled plus p.r. n. She will continue on deep venous thrombosis prophylaxis with Lovenox and sequential compression d evices and she will continue on deep venous thrombosis prophylaxis with Pepcid.
[2017-02-09] MEDS ORDERED: Enalaprilat Dihydrate 1.25 MG/ML VIAL SLOW IVP SCH (12:00)
[2017-02-09] MEDS: Dexmedetomidine 1,000 MCG in Sodium Chloride 0.9% 250 ML 240 ML IVPB SCH (15:05)
[2017-02-09] MEDS: Insulin Regular 300 UNITS/3 ML VIAL SC PRN (16:45)
--- NOTE | 2017-02-09 23:21 | PRG ---
DATE OF SERVICE: 02/09/2017 SUBJECTIVE: Mr. Andrade is clinically unchanged. His tracheostomy is in place. There is minimal bl eeding around her trach. OBJECTIVE: VITAL SIGNS: Her heart rate 85, respiratory 20, oximetry is 98, blood pressure 161/90. LUNGS: Clear and distant. HEART: Regular rhythm. S1 and S2 are distant. ABDOMEN: Soft. EXTREMITIES: Without asymmetry. IMAGING: Chest radiograph was done today for some reason. He still has bilateral chest tubes. One of the two chest tube, still has an air leak. LABORATORY DATA: White count 10.3, hemoglobin 10.0, platelets 346,000. Sodium 139, potassium 4, chl oride 98, bicarbonate 32, BUN 20, creatinine 0.54. IMPRESSION: 1. Respiratory failure associated with pneumococcal pneumonia with bacteremia. 2. Influenza. 3. Life threatening obesity. Her BMI is 68. 4. Status post tracheostomy with inability to place a PEG because of her obesity, she has an NG tube in place. 5. Anemia. Probably of chronic disease. 6. Extreme deconditioning. According to her mom, she is fairly inactive. PLAN: Slow weaning from mechanical ventilation now that she has a trach, would anticipate she is goi ng to be in the hospital many more weeks. CRITICAL CARE TIME: Thirty minutes.
[2017-02-10] MEDS: Dexmedetomidine 1,000 MCG in Sodium Chloride 0.9% 250 ML 240 ML IVPB SCH ×3 (00:26→18:51)
[2017-02-10] MEDS: Insulin Regular 300 UNITS/3 ML VIAL SC SCH ×4 (00:32→18:52)
[2017-02-10] MEDS: fentaNYL Citrate/PF 2,000 MCG in Sodium Chloride 0.9% 60 ML IV SCH ×2 (02:02→21:55)
[2017-02-10 04:33] LABS: Anion Gap 13 mmol/L (10-20); BUN (Urea Nitrogen) 17 mg/dL (7.0-18.7); Calc. Creatinine Clearance 416 mL/min (70-130); Calcium 9.9 mg/dL (7.8-10.44); Carbon Dioxide 28 mmol/L (22-29); Chloride 101 mmol/L (98-107); Estimated GFR-MDRD Greater than 90; Glucose 163 mg/dL (70-105); Magnesium 1.5 mg/dL (1.6-2.6); Phosphorus 3.1 mg/dL (2.3-4.7); Potassium 3.7 mmol/L (3.5-5.1); Sodium 138 mmol/L (136-145)
[2017-02-10 05:01] LABS: Band 6 % (5-11); Hemoglobin 9.8 g/dL (12.0-16.0); Lymphocytes 35 % (21-51); MDiff Complete? YES; Mean Corpuscular HGB CONC 32.5 g/dL (32.0-36.0); Mean Corpuscular Hemoglobin 30.8 pg (27.0-31.0); Mean Corpuscular Volume 94.8 fl (81.0-99.0); Mean Platelet Volume 8.1 fL (7.4-10.4); Monocytes 4 % (0-10); Neutrophil 55 % (42-75); Platelet Count 329 thou/uL (130-400); RBC Distribution Width 12.2 % (11.5-14.5); Red Blood Cell (RBC) Count 3.19 mill/uL (4.20-5.40)
[2017-02-10] MEDS: Insulin Regular 300 UNITS/3 ML VIAL SC PRN ×4 (06:04→20:43)
[2017-02-10] MEDS ORDERED: Sterile Water 10 ML ONE (08:33)
--- NOTE | 2017-02-10 09:15 | RAD ---
RADIOGRAPH CHEST 1 VIEW: Date: 02-10-17 Time: 5:31 a.m. HISTORY: 31-year-old female status post-surgery. COMPARISON: 02-08-17 FINDINGS: The patient is no longer rotated to the left. The positioning is better on the current study. Tracheo stomy tube remains. The tracheostomy tube is positioned such that it is uncertain which end is the di stal end and which is proximal end. The right sided curved chest tube remains. Severe opacification o f most of the right lung remains, intersperced with patchy small areas of aerated lung. Silhouetting of left hemidiaphragm by airspace opacity at the left base and/or left pleural effusion. Prominent in terstitial markings in the left lung. No pneumothorax identified. Allowing for positional differences , there is probably no major interval change. IMPRESSION: 1. Severe partial opacification of the right lung. 2. Partial opacification of the left lower lobe. 3. Right sided chest tube and tracheostomy tube. 4. Probably no major interval change. DEMETRIA POS: [facility]
[2017-02-10] MEDS: clonazePAM 1 MG TAB PO SCH ×2 (09:55→20:33)
[2017-02-10] MEDS: Enoxaparin Sodium 40 MG/0.4 ML SYRINGE SC SCH (09:55)
[2017-02-10] MEDS: Fluconazole 100 MG TAB PO SCH (09:55)
[2017-02-10] MEDS: Famotidine 20 MG TAB PER TUBE SCH ×2 (09:55→20:34)
[2017-02-10] MEDS: Saccharomyces boulardii 250 MG CAP PO SCH (09:55)
[2017-02-10] MEDS: Nystatin Powder 15 GM BOT TOP SCH ×2 (09:56→21:00)
[2017-02-10] MEDS: Insulin Detemir 100 UNITS/ML 45 UNITS in Pre-Filled Syringe SC SCH ×2 (09:57→20:44)
--- NOTE | 2017-02-10 12:55 | PRG ---
DATE OF SERVICE: 02/10/2017 SUBJECTIVE: Ms. Andrade is tolerating decreased ventilatory support with a tracheostomy. OBJECTIVE: VITAL SIGNS: Heart rate 78, blood pressure 118/70, respiratory rate in the 20s. LUNGS: Remarkable for coarse equal breath sounds. HEART: Regular rhythm. ABDOMEN: Soft. LABORATORY AND IMAGING DATA: She did not have air leaks on the chest tubes, pleurovacs today. White count 8, hemoglobin 9.8 and platelets 329. Sodium 138, potassium 3.7, chloride 101, bicarbonate 20, BUN 17 and creatinine 0.58. No blood gases are being done now as she has a trach. Chest radiograph still shows bilateral infiltrates. IMPRESSION: 1. Community-acquired pneumonia pneumococcus after influenza. 2. Respiratory failure. 3. Life threatening obesity. She has a BMI of 68. 4. Status post tracheostomy. 5. Status post attempted percutaneous endoscopic gastrostomy, it could not be placed because of her size. 6. Deconditioning and "disability." PLAN: We will continue supportive care with weaning from mechanical ventilation as tolerated. CRITICAL CARE TIME: 30 minutes.
--- NOTE | 2017-02-10 20:52 | PRG ---
DATE OF SERVICE: 02/10/2017 SUBJECTIVE: The patient is seen and examined at the bedside. She is in CCU C10. She is on a ventil ator. She is sedated. She has a tracheostomy tube in place. She has 2 chest tubes in her right kecia st. OBJECTIVE: VITAL SIGNS: Her blood pressure is 118/70, pulse is 72, respiratory rate is 20, pulse oximetry is 97 %. She is on FiO2 40%, pressure support is 20. PEEP of 8. She is on SIMV mode and frequency is 12. HEENT: Her head is atraumatic, normocephalic. She is very obese. HEART: S1, S2 normal. No S3 or S4. LUNGS: Breath sound diminished at both bases. Tracheostomy tube in place. ABDOMEN: Very obese. Bowel sounds are present. NEUROLOGIC: Not done as patient is sedated. LABORATORY DATA: Showed white count of 8.0, hemoglobin of 9.8, hematocrit of 30.2, platelet count is 329,000. ranging from 126-230. Normal electrolytes, BUN 17, creatinine 0.58, magnesium 1.5. IMAGING: Chest x-ray showed severe partial opacification of the right lung and partial opacification of the left lower lobe. The right sided chest tube and tracheostomy tube are in place. There were no any major interval changes from the previous x-ray. IMPRESSION: 1. Acute respiratory failure with hypoxia status post tracheostomy placement. 2. Streptococcal sepsis. 3. Pneumothorax on the right side. The patient still has one chest tube in place. 4. Morbid obesity. 5. Status post attempted percutaneous endoscopic gastrostomy which could not be placed because of he r size. PLAN: Plan is to continue her supportive care with weaning from mechanical ventilation as tolerated. The patient will continue her methylprednisolone which is down to 20 mg IV push once a day. She wi ll continue on her insulin sliding scale and long-acting Levemir 45 units. She will continue support robbie care to receive from CCU staff. Also, she will continue on her Lovenox for DVT prophylaxis and o n Pepcid for PUD prophylaxis.
[2017-02-11 05:46] LABS: Band 1 % (5-11); Hemoglobin 9.9 g/dL (12.0-16.0); Lymphocytes 25 % (21-51); MDiff Complete? YES; Mean Corpuscular HGB CONC 32.5 g/dL (32.0-36.0); Mean Corpuscular Hemoglobin 30.8 pg (27.0-31.0); Mean Platelet Volume 8.5 fL (7.4-10.4); Monocytes 7 % (0-10); Neutrophil 67 % (42-75); Nucleated RBC 1 % (0); Platelet Count 361 thou/uL (130-400); RBC Distribution Width 12.2 % (11.5-14.5); Red Blood Cell (RBC) Count 3.22 mill/uL (4.20-5.40); White Blood Cell (WBC) Count 7.8 thou/uL (4.8-10.8)
[2017-02-11] MEDS: Insulin Regular 300 UNITS/3 ML VIAL SC SCH ×5 (06:41→23:43)
[2017-02-11 07:39] LABS: Anion Gap 11 mmol/L (10-20); BUN (Urea Nitrogen) 15 mg/dL (7.0-18.7); Calc. Creatinine Clearance 448 mL/min (70-130); Calcium 10.1 mg/dL (7.8-10.44); Carbon Dioxide 29 mmol/L (22-29); Chloride 103 mmol/L (98-107); Estimated GFR-MDRD Greater than 90; Glucose 144 mg/dL (70-105); Magnesium 1.8 mg/dL (1.6-2.6); Phosphorus 4.6 mg/dL (2.3-4.7); Sodium 139 mmol/L (136-145)
[2017-02-11] MEDS ORDERED: Sterile Water 10 ML ONE (09:28)
[2017-02-11] MEDS: clonazePAM 1 MG TAB PO SCH ×2 (09:58→20:41)
[2017-02-11] MEDS: Saccharomyces boulardii 250 MG CAP PO SCH (09:59)
[2017-02-11] MEDS: Famotidine 20 MG TAB PER TUBE SCH ×2 (09:59→20:40)
[2017-02-11] MEDS: Enoxaparin Sodium 40 MG/0.4 ML SYRINGE SC SCH (09:59)
[2017-02-11] MEDS: Fluconazole 100 MG TAB PO SCH (09:59)
[2017-02-11] MEDS: Nystatin Powder 15 GM BOT TOP SCH (10:00)
[2017-02-11] MEDS: Insulin Detemir 100 UNITS/ML 45 UNITS in Pre-Filled Syringe SC SCH (10:01)
--- NOTE | 2017-02-11 10:38 | RAD ---
PORTABLE CHEST: HISTORY: ICU followup. Dyspnea. COMPARISON: 02/10/17. FINDINGS: Tracheostomy device. Right chest tube. Right lung infiltrates. Left lung appears clear. Exam is degraded due to motion artifact and poor positioning. Findings do not appear significantly c hanged from yesterday. POS: [facility]
[2017-02-11] MEDS: Insulin Regular 300 UNITS/3 ML VIAL SC PRN (12:45)
[2017-02-11] MEDS: Dexmedetomidine 1,000 MCG in Sodium Chloride 0.9% 250 ML 240 ML IVPB SCH ×2 (12:46→19:42)
--- NOTE | 2017-02-11 14:19 | PRG ---
DATE OF SERVICE: 02/11/2017 SERVICE: Pulmonary Medicine. INTERVAL HISTORY: The patient is doing really well from a respiratory standpoint. Overnight, she krishnamurthy d significant agitation and was coughing almost continuously. She had frequent desaturations associa jovana with these events. As such, we ended up putting her on dexmedetomidine. It kind of smooths her out a little bit. She remains on high dose of fentanyl. We are going to start weaning this. She ca nnot provide any additional elements of the history because she is currently under the influence of s ome of these sedating medications. Otherwise, there were no events. PHYSICAL EXAMINATION: VITAL SIGNS: Afebrile, pulse 81, blood pressure 153/104, respirations 27, saturation 100% on 40% FiO 2 and PEEP of 8. HEENT: Normocephalic, atraumatic. Sclerae are white, conjunctivae pink. Oral and nasal mucosa is m oist without lesions. LUNGS: Decent air entry. No prolonged expiratory phase or wheezing is appreciated. HEART: Normal rate and regular. ABDOMEN: Soft, nontender, nondistended. Bowel sounds are positive. MUSCULOSKELETAL: No cyanosis or clubbing. No pitting in the bilateral lower extremities. NEUROLOGIC: Grossly nonfocal. LABORATORY DATA: WBC 7.8, hemoglobin 9.9, platelets 361,000. Band count has dropped to 1%. Basic m etabolic profile, magnesium and phosphorus all fall within normal limits. C. diff antigen and toxin is unremarkable. Respiratory culture is negative. Blood culture x2 and urine culture also unremarka ble. IMAGING: Chest x-ray demonstrates right-sided chest tube. Right lung infiltrate. Left lung is cathi r. The heart is generous in size, but the lung volumes are fairly small secondary to body habitus mo st likely. The tracheostomy tube appears to be in decent position. ASSESSMENT: 1. Acute on chronic hypoxic and hypercapnic respiratory failure. 2. Community-acquired pneumonia secondary to influenza. 3. Influenza A. 4. Obesity hypoventilation syndrome. 5. Deconditioning. PLAN: The patient will remain in the ICU. We will continue to wean ventilator support. I will drop her PEEP and FiO2 at touch. Her backup rate is going to be dropped from 12 to 9. Inspiratory time has been decreased just a touch in order to meet her current requirements. We will back off on the f entanyl. I will put her on a fentanyl patch for the time being, but this will need to be weaned and ultimately de-escalate it. She has been on continuous drip with fentanyl for the past 15 days. I am going to tried to avoid any withdrawal type features. The NG tube is going to be removed and a Dobb robbie tube will replace it. IV fluids will be discontinued and everything will be transitioned over t o her tube feeds. We will touch base with dietitian about moving those things up or bumping up her f eeds now that she is no longer requiring propofol. CRITICAL CARE TIME: 30 minutes.
[2017-02-11] MEDS ORDERED: Insulin Detemir 100 UNITS/ML 30 UNITS in Pre-Filled Syringe 1 EACH SC SCH (14:45)
[2017-02-11] MEDS: fentaNYL 50 mcg/hour Patch TD SCH ×2 (15:00→19:39)
--- NOTE | 2017-02-11 18:24 | RAD ---
ABDOMEN ONE VIEW 02/11/17 HISTORY: Dobhoff tube placement. COMPARISON: Radiograph 02/08/17. FINDINGS: Dobhoff tube tip gastric body. IMPRESSION: Dobhoff tube tip gastric body. Recommend advancing. POS: [facility]
--- NOTE | 2017-02-11 18:55 | PRG ---
DATE OF SERVICE: 02/11/2017 SUBJECTIVE: The patient is intubated and sedated. PHYSICAL EXAMINATION: VITAL SIGNS: Blood pressure is 153/104. She is afebrile. She stays on FiO2 of 40%. HEENT: Head is atraumatic, normocephalic. Sclerae are nonicteric. LUNGS: With bilateral wheezes present. HEART: S1, S2 normal and regular. ABDOMEN: Obese, nondistended. Bowel sounds are present. NEUROLOGIC: Postponed since she is sedated. LABORATORY DATA: Showed normal CBC. Respiratory culture is negative. Blood cultures x2 and urine c ultures negative. IMAGING: Chest x-ray showed right-sided chest tube and right lung infiltrate. ASSESSMENT: 1. Community-acquired pneumonia secondary to influenza. 2. Respiratory failure. 3. Influenza A. 4. Transient bacteremia with Streptococcus. 5. Pneumothorax of the right lung, status post chest tube placement. 6. Morbid obesity. 7. Status post attempted percutaneous endoscopic gastrostomy, which could not be placed because of h er size. PLAN: To continue supportive care in the intensive care unit and try to wean her off ventilation. S he is very anxious. The Dobbhoff tube will be placed and dietitian is supposed to be involved in her care.
--- NOTE | 2017-02-11 18:56 | PRG ---
DATE OF SERVICE: 02/11/2017 SUBJECTIVE: I am seeing Mr. Andrade on behalf of Dr. Julio. The patient is postoperative day #2 s tatus post tracheostomy tube placement as well as attempted percutaneous endoscopic gastrostomy tube placement. The patient remains hemodynamically stable on ventilator support. Tracheostomy site is c lean and dry. No hematoma present. There is no hemorrhage. There are no bloody secretions by trach eostomy tube suggest active bleeding. The patient is tolerating tube feeds and having adequate bowel movements. PHYSICAL EXAMINATION: VITAL SIGNS: Remained stable. ABDOMEN: Soft, morbidly obese, nontender to palpation. Clearly, this patient has no peritoneal signs to suggest any potential complications from an attempte d percutaneous endoscopic gastrostomy tube placement. There is no further surgical intervention for this patient at this time. Medical management is provided by the Critical Care Service.
[2017-02-11] MEDS: Insulin Detemir 100 UNITS/ML 30 UNITS in Pre-Filled Syringe 1 EACH SC SCH (20:18)
--- NOTE | 2017-02-11 20:52 | RAD ---
ABDOMEN ONE VIEW 02/11/17 HISTORY: Dobhoff tube placement. COMPARISON: Abdomen radiograph same day. FINDINGS: Dobhoff tube tip is at the gastric antrum. IMPRESSION: Dobhoff tube tip at the gastric antrum. POS: [facility]
[2017-02-11] MEDS: Lorazepam 2 MG/ML VIAL SLOW IVP PRN (23:24)
[2017-02-12] MEDS: Lorazepam 2 MG/ML VIAL SLOW IVP PRN ×3 (02:50→22:23)
[2017-02-12] MEDS: Ondansetron HCl/PF 4 MG/2 ML Vial SLOW IVP PRN (03:38)
[2017-02-12] MEDS: Dexmedetomidine 1,000 MCG in Sodium Chloride 0.9% 250 ML 240 ML IVPB SCH ×2 (04:53→20:57)
[2017-02-12] MEDS: Insulin Regular 300 UNITS/3 ML VIAL SC SCH ×3 (05:44→20:58)
--- NOTE | 2017-02-12 10:41 | RAD ---
FRONTAL VIEW ABDOMEN: INDICATIONS: Tube placement evaluation. Dobhoff placement. FINDINGS: There is a partially imaged enteric catheter with the distal metallic stylette portion overlying the medial right mid abdomen. This may localize to the distal gastric/proximal duodenal region. Partial ly imaged, distended, air-filled bowel loops are incompletely evaluated on the basis of this exam. IMPRESSION: Enteric catheter traversing to the medial right mid abdomen, as above. POS: [facility]
[2017-02-12] MEDS: Lisinopril 10 MG TAB PO SCH (10:53)
[2017-02-12] MEDS: Famotidine 20 MG TAB PER TUBE SCH ×2 (10:54→20:58)
[2017-02-12] MEDS: Enoxaparin Sodium 40 MG/0.4 ML SYRINGE SC SCH (10:54)
[2017-02-12] MEDS: Saccharomyces boulardii 250 MG CAP PO SCH (11:01)
--- NOTE | 2017-02-12 11:52 | RAD ---
FRONTAL VIEW CHEST: INDICATIONS: Fever. COMPARISON: 02/11/2017 FINDINGS: Tracheostomy is again demonstrated. There is extensive overlying artifact, which limits detail. Cat heter tubing overlying the right chest remains. There is diffuse pulmonary parenchymal opacity of th e right hemithorax, as well as prominent pleural-based density. The left lung base is obscured. The re is marked enlargement of the cardiac silhouette. IMPRESSION: Grossly stable chest, with extensive pleural and parenchymal opacity of the right hemithorax. POS: [facility]
--- NOTE | 2017-02-12 14:59 | PRG ---
DATE OF SERVICE: 02/12/2017 SERVICE: Pulmonary Medicine. INTERVAL HISTORY: The patient is doing really well from a respiratory standpoint. This afternoon, I walked in the room; however, and she was breathing in the upper 40s. She was struggling to catch he r air. I think most of that was because of her position. She is lying nearly flat, which is a diffe rent position then we left her last night. Otherwise, there were no events overnight. PHYSICAL EXAMINAITON: Vital signs: Afebrile, currently with a high temperature overnight of 100.9, pulse 89, blood pressur e 125/61, respiration 25, saturation 92% on 40% FiO2 and a PEEP of 5. GENERAL: The patient is awake and alert. No apparent distress after repositioning. HEENT: Normocephalic, atraumatic. Sclerae are white, conjunctivae pink. Oral and nasal mucosa is m oist without lesions. LUNGS: Decent air entry bilaterally. There is no prolonged expiratory phase. Rhonchi are present t hroughout bilateral lung carlos. HEART: Normal rate, regular. ABDOMEN: Soft. Nontender, nondistended. Bowel sounds are positive. MUSCULOSKELETAL: No cyanosis or clubbing. There is trace 1+ pitting in the bilateral lower extremit ies. NEUROLOGIC: Grossly nonfocal. IMAGIN. Chest x-ray demonstrates grossly stable chest with extensive pleural and parenchymal opacity of t he right hemithorax. 2. KUB of the abdomen demonstrates enteric catheter traversing to the medial right and mid abdomen. There is distended air filled bowel loops incompletely evaluated on this exam. ASSESSMENT: 1. Acute on chronic hypoxic and hypercapnic respiratory failure. 2. Community-acquired pneumonia secondary to influenza. 3. Influenza A. 4. Obesity hypoventilation syndrome, status post tracheostomy. 5. Deconditioning. PLAN: We will continue to wean ventilator support. We will have our work with physical therapy in o rder to regain her strength. We will back off on her rate in her pressure support as well as pressur e control ever so slightly. She is currently on a fentanyl patch, which will need to be weaned over time. She continues to require the Precedex for the time being. Pulmonary Critical Care will contin ue to follow. CRITICAL CARE TIME: 30 minutes.
--- NOTE | 2017-02-12 16:11 | PDOC.PN ---
- Subjective Encounter Start Date: 02/12/17 Encounter Start Time: 11:20 Pt seen for followup re: acute respiratory failure. Nonverbal, but answering questions by shaking or nodding head. No chest pain or shortness of breath. - Objective Resuscitation Status: Resuscitation Status FULL:Full Resuscitation MAR Reviewed: Yes Vital Signs & Weight: Vital Signs (12 hours) Temp Pulse Resp BP Pulse Ox 02/12/17 15:09 94 144/86 H 02/12/17 12:01 89 125/61 02/12/17 10:53 156/97 H 02/12/17 10:00 22 H 02/12/17 08:00 100.9 F H 85 20 95 02/12/17 07:53 85 156/97 H 02/12/17 07:00 100.9 F H 02/12/17 06:00 41 H 02/12/17 05:00 99.5 F Weight Admit Weight 414 lb Weight 414 lb Most Recent Monitor Data Heart Rate from ECG 92 NIBP 131/73 NIBP BP-Mean 90 Respiration from ECG 25 SpO2 92 I&O: 02/11/17 02/12/17 02/13/17 06:59 06:59 06:59 Intake Total 3284 2053.7 0 Output Total 3910 28536 285 [facility] -626 -01775.3 -285 Result Diagrams: 02/11/17 04:44 02/11/17 04:44 Additional Labs: Accuchecks 02/12/17 02/12/17 02/12/17 12:41 05:36 01:47 POC Glucose 123 H 84 78 02/11/17 02/11/17 23:42 17:59 POC Glucose 80 135 H EKG Reviewed by me: Yes (Tele: NSR) Phys Exam - Physical Examination Morbid obesity HEENT: moist MMs Tracheostomy Neck: supple Respiratory: clear to auscultation bilateral Cardiovascular: RRR Gastrointestinal: soft Neurological: moves all 4 limbs Psychiatric: normal affect Dx/Plan (1) Acute respiratory failure with hypoxia Code(s): J96.01 - ACUTE RESPIRATORY FAILURE WITH HYPOXIA Status: Acute (2) Sepsis Code(s): A41.9 - SEPSIS, UNSPECIFIED ORGANISM Status: Acute Qualifiers: Sepsis type: Streptococcus, other Qualified Code(s): A40.8 - Other streptococcal sepsis (3) Morbid obesity Code(s): E66.01 - MORBID (SEVERE) OBESITY DUE TO EXCESS CALORIES Status: Chronic (4) DM2 (diabetes mellitus, type 2) Status: Chronic (5) HTN (hypertension) Code(s): I10 - ESSENTIAL (PRIMARY) HYPERTENSION Status: Chronic - Plan PT/OT, DVT proph w/lovenox * . Continue insulin sliding scale, accuchecks.' Monitor vital signs, titrate antihypertensives as needed. Review of Systems - Review of Systems Respiratory: negative: Cough, Shortness of Breath Cardiovascular: negative: chest pain, palpitations, orthopnea - Medications/Allergies Allergies/Adverse Reactions: Allergies Allergy/AdvReac Type Severity Reaction Status Date / Time cephalexin [From Keflex] Allergy Verified 02/05/17 18:56 Medications: Current Medications Acetaminophen (Tylenol Elixir) 650 mg PER TUBE Q4H PRN PRN Reason: Headache/Fever or Pain Last Admin: 02/06/17 00:22 Dose: 650 mg Albuterol Sulfate (Ventolin) 2.5 mg NEB Q2H PRN PRN Reason: Wheezing Albuterol/Ipratropium (Duoneb) 3 ml NEB [id number] [facility] Last Admin: 02/12/17 15:07 Dose: 3 ml Clonazepam (Klonopin) 1 mg PO HS [facility] Last Admin: 02/11/17 20:41 Dose: 1 mg Dextrose/Water (Dextrose 50%) 25 gm SLOW IVP PRN PRN PRN Reason: Hypoglycemia Enoxaparin Sodium (Lovenox) 40 mg SC 0900 [facility] Last Admin: 02/12/17 10:54 Dose: 40 mg Famotidine (Pepcid) 20 mg PER TUBE BID [facility] Last Admin: 02/12/17 10:54 Dose: 20 mg Fentanyl (Duragesic) 50 mcg TD Q3D [facility] Last Admin: 02/11/17 19:39 Dose: 50 mcg Glucagon (Glucagon) 1 mg IM PRN PRN PRN Reason: Hypoglycemia Fentanyl Citrate (Fentanyl Bolus) 250 mls @ 0 mls/hr IVPB PRN PRN; As Directed PRN Reason: Breakthrough pain Stop: 02/26/17 20:40 Dextrose/Water (D5w) 1,000 mls @ 0 mls/hr IV .Q0M PRN; As Directed PRN Reason: Hypoglycemia Dexmedetomidine HCl 1,000 mcg/ (Sodium Chloride) 250 mls @ 0 mls/hr IVPB INF [facility]; Per Protocol PRN Reason: Protocol Last Admin: 02/12/17 04:53 Dose: 250 mls Insulin Detemir 30 units/ (Miscellaneous Medication) 0.3 mls @ 0 mls/hr SC BID [facility] PRN Reason: As Directed Last Admin: 02/11/17 20:18 Dose: 0.3 mls Insulin Human Regular (Humulin R) 0 units SC .AGGRESSIVE SLIDING PRN PRN Reason: Aggressive Sliding Scale Last Admin: 02/11/17 12:45 Dose: 3 unit Insulin Human Regular (Humulin R) 10 units SC Q6HR [facility] Last Admin: 02/12/17 05:44 Dose: Not Given Lisinopril (Zestril) 10 mg PO DAILY [facility] Last Admin: 02/12/17 10:53 Dose: 10 mg Lorazepam (Ativan) 2 mg SLOW IVP Q2H PRN PRN Reason: Anxiety to achieve Elizalde 2-3 Stop: 03/09/17 15:43 Last Admin: 02/12/17 04:53 Dose: 2 mg Discontinue Previous Narcotic Pain Medications And Benzodiazepines 1 each FS .ONE [facility] Stop: 02/26/17 20:40 Ondansetron HCl (Zofran) 4 mg SLOW IVP Q6H PRN PRN Reason: Nausea/Vomiting Last Admin: 02/12/17 03:38 Dose: 4 mg Quetiapine Fumarate (Seroquel) 25 mg PO BID [facility] Last Admin: 02/12/17 10:54 Dose: 25 mg Saccharomyces Boulardii (Florastor) 250 mg PO DAILY [facility] Last Admin: 02/12/17 11:01 Dose: 250 mg Sodium Chloride (Flush - Normal Saline) 10 ml IVF PRN PRN PRN Reason: Saline Flush Last Admin: 02/05/17 08:06 Dose: 10 ml
[2017-02-12] MEDS: Insulin Detemir 100 UNITS/ML 30 UNITS in Pre-Filled Syringe 1 EACH SC SCH ×2 (17:07→20:58)
[2017-02-12] MEDS: clonazePAM 1 MG TAB PO SCH (20:58)
[2017-02-12] MEDS ORDERED: Haloperidol Lactate 5 MG/ML VIAL IM SCH (23:45)
[2017-02-13] MEDS: Insulin Regular 300 UNITS/3 ML VIAL SC SCH ×4 (00:08→17:52)
[2017-02-13] MEDS: Dexmedetomidine 1,000 MCG in Sodium Chloride 0.9% 250 ML 240 ML IVPB SCH ×3 (04:53→21:37)
[2017-02-13 06:13] LABS: #Basophils 0.1 thou/uL (0.0-0.2); #Eosinphils 0.1 thou/uL (0.0-0.7); #Lymphocytes 2.5 thou/uL (1.20-3.40); #Monocytes 0.9 thou/uL (0.11-0.59); #Neutrophils 7.5 thou/uL (1.40-6.50); %Basophils 0.7 % (0.0-1.0); %Eosinophils 0.6 % (0.0-10.0); %Lymphocytes 22.8 % (21.0-51.0); %Neutrophils 67.9 % (42.0-75.0); Hemoglobin 10.6 g/dL (12.0-16.0); Mean Corpuscular HGB CONC 32.3 g/dL (32.0-36.0); Mean Corpuscular Hemoglobin 30.4 pg (27.0-31.0); Mean Corpuscular Volume 94.2 fl (81.0-99.0); Mean Platelet Volume 7.6 fL (7.4-10.4); Platelet Count 412 thou/uL (130-400); RBC Distribution Width 12.4 % (11.5-14.5); Red Blood Cell (RBC) Count 3.49 mill/uL (4.20-5.40)
[2017-02-13 06:34] LABS: Anion Gap 15 mmol/L (10-20); BUN (Urea Nitrogen) 13 mg/dL (7.0-18.7); Calc. Creatinine Clearance 439 mL/min (70-130); Calcium 9.8 mg/dL (7.8-10.44); Carbon Dioxide 28 mmol/L (22-29); Chloride 101 mmol/L (98-107); Estimated GFR-MDRD Greater than 90; Glucose 139 mg/dL (70-105); Magnesium 1.6 mg/dL (1.6-2.6); Potassium 3.8 mmol/L (3.5-5.1); Sodium 140 mmol/L (136-145)
--- NOTE | 2017-02-13 08:03 | RAD ---
AP CHEST: Indication: Chest tube. FINDINGS: Feeding tube and tracheostomy tube is unchanged. Right sided thoracotomy tubes are similar. Complex p leural and parenchymal opacity involving the right lung is similar. No definite pneumothorax is evide nt. Cardiomegaly persists. IMPRESSION: As above. POS: [facility]
[2017-02-13] MEDS: Enoxaparin Sodium 40 MG/0.4 ML SYRINGE SC SCH (09:47)
[2017-02-13] MEDS: Insulin Detemir 100 UNITS/ML 30 UNITS in Pre-Filled Syringe 1 EACH SC SCH ×2 (09:47→21:09)
[2017-02-13] MEDS: Saccharomyces boulardii 250 MG CAP PO SCH (09:48)
[2017-02-13] MEDS: Famotidine 20 MG TAB PER TUBE SCH ×2 (09:48→21:09)
[2017-02-13] MEDS: Lisinopril 10 MG TAB PO SCH (09:48)
[2017-02-13] MEDS: Lorazepam 2 MG/ML VIAL SLOW IVP PRN ×2 (11:04→14:29)
--- NOTE | 2017-02-13 12:04 | PDOC.PN ---
- Subjective Encounter Start Date: 02/13/17 Encounter Start Time: 12:01 Subjective: intubated, no distress - Objective Resuscitation Status: Resuscitation Status FULL:Full Resuscitation MAR Reviewed: Yes Vital Signs & Weight: Vital Signs (12 hours) Temp Pulse Resp BP Pulse Ox 02/13/17 11:41 123 H 169/99 H 02/13/17 11:00 98.5 F 02/13/17 10:00 24 H 02/13/17 09:48 145/84 H 02/13/17 08:00 98.5 F 88 20 93 L 02/13/17 07:42 92 145/84 H 02/13/17 07:39 91 25 H 95 02/13/17 07:00 98.7 F 02/13/17 06:00 23 H 02/13/17 04:00 98.8 F 20 02/13/17 03:21 87 116/56 L 02/13/17 02:00 21 H Weight Admit Weight 414 lb Weight 412 lb 11.285 oz Most Recent Monitor Data Heart Rate from ECG 114 NIBP 169/99 NIBP BP-Mean 119 Respiration from ECG 33 SpO2 91 I&O: 02/12/17 02/13/17 02/14/17 06:59 06:59 06:59 Intake Total 2053.7 1577 Output Total 77166 1645 220 Balance -34938.3 -68 -220 Result Diagrams: 02/13/17 05:37 02/13/17 05:37 Additional Labs: Accuchecks 02/12/17 02/12/17 02/12/17 23:17 18:45 12:41 POC Glucose 156 H 142 H 123 H 02/12/17 02/12/17 05:36 01:47 POC Glucose 84 78 Radiology Reviewed by me: Yes (cxr- Chest tube, trach , marked R sided pulmonary changes, essntially stabl) Phys Exam - Physical Examination Constitutional: NAD Neck: no JVD dull un R lat chest, rhonchi, poor BD Cardiovascular: no significant murmur Gastrointestinal: soft, non-tender, positive bowel sounds Musculoskeletal: pulses present, edema present Dx/Plan (1) Acute on chronic respiratory failure with hypercapnia Code(s): J96.22 - ACUTE AND CHRONIC RESPIRATORY FAILURE WITH HYPERCAPNIA Status: Acute (2) PNA (pneumonia) Code(s): J18.9 - PNEUMONIA, UNSPECIFIED ORGANISM Status: Acute Qualifiers: Pneumonia type: due to unspecified organism Laterality: right Lung location: unspecified part of lung Qualified Code(s): J18.9 - Pneumonia, unspecified organism (3) Pneumothorax, right Code(s): J93.9 - PNEUMOTHORAX, UNSPECIFIED Status: Acute (4) Sepsis Code(s): A41.9 - SEPSIS, UNSPECIFIED ORGANISM Status: Acute Qualifiers: Sepsis type: Streptococcus, other Qualified Code(s): A40.8 - Other streptococcal sepsis (5) DM2 (diabetes mellitus, type 2) Status: Chronic Qualifiers: Diabetes mellitus complication status: without complication (6) HTN (hypertension) Code(s): I10 - ESSENTIAL (PRIMARY) HYPERTENSION Status: Chronic Qualifiers: Hypertension type: essential hypertension Qualified Code(s): I10 - Essential (primary) hypertension (7) Morbid obesity Code(s): E66.01 - MORBID (SEVERE) OBESITY DUE TO EXCESS CALORIES Status: Chronic - Plan cont vent, tube nutrition -: cont resp tx -: discusss with hospitalist program director * .
[2017-02-13] MEDS: Propofol 1,000 MG/100 ML VIAL IV PRN (20:06)
[2017-02-13] MEDS: clonazePAM 1 MG TAB PO SCH (21:09)
--- NOTE | 2017-02-14 01:13 | PRG ---
DATE OF SERVICE: 02/13/2017 SUBJECTIVE: Ms. Andrade continues to be intermittently disoriented. She pulled her Dobbhoff out tod ay. OBJECTIVE: VITAL SIGNS: Heart rate 103, blood pressure 116/93, respiratory rate in the 20s. We are still gradu ally decreasing ventilatory support, we cut her rate back and her pressures back today. LUNGS: Distant. HEART: Regular rhythm. ABDOMEN: Soft. IMAGING: Last chest radiograph looks like she has organized fluid on the right. LABORATORY DATA: White count 11, hemoglobin 10.6, platelets 112,000. Electrolytes normal. IMPRESSION: 1. Respiratory failure after pneumococcal bacteremia and pneumococcal pneumonia with clinical sepsis . 2. Medical noncompliance with followup with a doctor. 3. Diabetes. 4. Life-threatening obesity. Her mother informed me that if we got a tracheotomy in her and got her off the ventilator, she would help take care of her here in the hospital, but I have not seen her mother since the tracheostomy. In any event, she is not a candidate for PEG. We will have to replace with Dobhoff probably tomorrow morning. We have planned a CT of her chest in the morning just to see if she has loculated fluid, a lthough I am not sure her surgeon could perform a thoracotomy on a 412 pounds, 5 feet 5 inches woman. This is a big problem and her deconditioning is the biggest factor that may prevent weaning from me chanical ventilation even with the tracheostomy .
[2017-02-14] MEDS: Insulin Regular 300 UNITS/3 ML VIAL SC SCH ×4 (01:52→18:16)
[2017-02-14] MEDS: Propofol 1,000 MG/100 ML VIAL IV PRN (02:16)
[2017-02-14] MEDS: Dexmedetomidine 1,000 MCG in Sodium Chloride 0.9% 250 ML 240 ML IVPB SCH ×3 (02:17→20:03)
[2017-02-14 04:44] LABS: #Eosinphils 0.1 thou/uL (0.0-0.7); #Lymphocytes 2.1 thou/uL (1.20-3.40); #Monocytes 0.8 thou/uL (0.11-0.59); #Neutrophils 10.4 thou/uL (1.40-6.50); %Basophils 0.2 % (0.0-1.0); %Eosinophils 0.5 % (0.0-10.0); %Lymphocytes 15.6 % (21.0-51.0); %Monocytes 5.7 % (0.0-10.0); Hemoglobin 11.3 g/dL (12.0-16.0); Mean Corpuscular HGB CONC 32.2 g/dL (32.0-36.0); Mean Corpuscular Hemoglobin 30.2 pg (27.0-31.0); Mean Corpuscular Volume 93.7 fl (81.0-99.0); Mean Platelet Volume 7.8 fL (7.4-10.4); Platelet Count 408 thou/uL (130-400); RBC Distribution Width 12.2 % (11.5-14.5); Red Blood Cell (RBC) Count 3.74 mill/uL (4.20-5.40); White Blood Cell (WBC) Count 13.3 thou/uL (4.8-10.8)
[2017-02-14 05:27] LABS: Anion Gap 16 mmol/L (10-20); BUN (Urea Nitrogen) 12 mg/dL (7.0-18.7); Calc. Creatinine Clearance 446 mL/min (70-130); Calcium 9.8 mg/dL (7.8-10.44); Carbon Dioxide 25 mmol/L (22-29); Chloride 102 mmol/L (98-107); Estimated GFR-MDRD Greater than 90; Glucose 156 mg/dL (70-105); Magnesium 1.5 mg/dL (1.6-2.6); Potassium 3.7 mmol/L (3.5-5.1); Sodium 139 mmol/L (136-145)
--- NOTE | 2017-02-14 08:45 | RAD ---
CHEST ONE VIEW: History: Chest tubes. Dyspnea. Follow up. Comparison: 02-13-17 FINDINGS: Cardiac silhouette remains magnified, enlarged, and predominately obscured by widespread bilateral in filtrates. Mediastinum is midline with tracheostomy appliance in place. Feeding tube is no longer vis ible. Right thoracostomy tubes appear unchanged in position. No gross pneumothorax is apparent. Cardi ac monitor leads overlie the chest. IMPRESSION: 1. Interval removal of the feeding catheter. 2. Otherwise stable radiographic appearance of the chest with right thoracostomy tubes and dense bila teral airspace disease. POS: [facility]
[2017-02-14] MEDS: Lorazepam 2 MG/ML VIAL SLOW IVP PRN (09:40)
--- NOTE | 2017-02-14 09:42 | PDOC.PN ---
- Subjective Encounter Start Date: 02/14/17 Encounter Start Time: 09:41 Subjective: intubated, no verbal, no distress - Objective Resuscitation Status: Resuscitation Status FULL:Full Resuscitation MAR Reviewed: Yes Vital Signs & Weight: Vital Signs (12 hours) Temp Pulse Resp BP Pulse Ox 02/14/17 08:00 35 H 02/14/17 07:00 98.8 F 02/14/17 06:49 113 H 155/95 H 02/14/17 06:48 112 H 41 H 92 L 02/14/17 06:00 30 H 02/14/17 04:00 99.1 F 27 H 02/14/17 03:34 105 H 150/80 H 02/14/17 02:00 30 H 02/14/17 01:33 104 H 02/14/17 00:00 98.9 F 30 H 02/13/17 23:13 109 H 139/94 H 02/13/17 22:00 30 H Weight Admit Weight 414 lb Weight 412 lb 7.758 oz Most Recent Monitor Data Heart Rate from ECG 104 NIBP 142/65 NIBP BP-Mean 76 Respiration from ECG 27 SpO2 97 I&O: 02/13/17 02/14/17 02/15/17 06:59 06:59 06:59 Intake Total 1577 1192 0 Output Total 1645 1150 3485 Balance -68 42 -3485 Result Diagrams: 02/14/17 04:10 02/14/17 04:10 Additional Labs: Accuchecks 02/14/17 02/14/17 02/13/17 05:55 00:14 18:03 POC Glucose 154 H 138 H 127 H 02/13/17 02/13/17 12:15 05:02 POC Glucose 150 H 137 H Radiology Reviewed by me: Yes (cxr-ET tube, extensive R infiltrate) EKG Reviewed by me: Yes (CT chest- C tube, loculated area of pleural fluid on right) Phys Exam - Physical Examination Constitutional: NAD Neck: no JVD decreased BS, rhonchi R>L Cardiovascular: RRR, no significant murmur Gastrointestinal: soft, non-tender Musculoskeletal: pulses present, edema present Dx/Plan (1) Acute on chronic respiratory failure with hypercapnia Code(s): J96.22 - ACUTE AND CHRONIC RESPIRATORY FAILURE WITH HYPERCAPNIA Status: Acute (2) PNA (pneumonia) Code(s): J18.9 - PNEUMONIA, UNSPECIFIED ORGANISM Status: Acute Qualifiers: Pneumonia type: due to unspecified organism Laterality: right Lung location: unspecified part of lung Qualified Code(s): J18.9 - Pneumonia, unspecified organism (3) Pneumothorax, right Code(s): J93.9 - PNEUMOTHORAX, UNSPECIFIED Status: Acute (4) Sepsis Code(s): A41.9 - SEPSIS, UNSPECIFIED ORGANISM Status: Acute Qualifiers: Sepsis type: Streptococcus, other Qualified Code(s): A40.8 - Other streptococcal sepsis (5) DM2 (diabetes mellitus, type 2) Status: Chronic Qualifiers: Diabetes mellitus complication status: without complication (6) HTN (hypertension) Code(s): I10 - ESSENTIAL (PRIMARY) HYPERTENSION Status: Chronic Qualifiers: Hypertension type: essential hypertension Qualified Code(s): I10 - Essential (primary) hypertension (7) Morbid obesity Code(s): E66.01 - MORBID (SEVERE) OBESITY DUE TO EXCESS CALORIES Status: Chronic (8) Loculated pleural effusion Code(s): J90 - PLEURAL EFFUSION, NOT ELSEWHERE CLASSIFIED Status: Acute - Plan vent dependent, discuss with transit driver -: cont nebs -: cont accu/ss/detemir * .
[2017-02-14] MEDS: Enoxaparin Sodium 40 MG/0.4 ML SYRINGE SC SCH (10:49)
[2017-02-14] MEDS: Labetalol HCl 100 MG/20 ML VIAL IVPB PRN (10:53)
[2017-02-14] MEDS: Famotidine 20 MG TAB PER TUBE SCH ×2 (10:58→21:19)
[2017-02-14] MEDS: Lisinopril 10 MG TAB PO SCH (10:58)
--- NOTE | 2017-02-14 11:14 | CT ---
CT CHEST NONCONTRAST: History: Pneumonia. Chest tubes. Empyema. Evaluate for loculation. FINDINGS: Right thoracostomy tubes are in place, each directed towards the right posterior costophrenic angle. Significant atelectasis and consolidation remains throughout the right lobe with minimal right pleura l fluid evident. At the right anterior upper chest, a lobulated collection of gas and fluid measures up to 8.7 cm length x 11.3 cm width x 8.8 cm depth. There is atelectasis at the left lung base. Endotracheal catheter is in good CT position. Lack of con trast limits evaluation of the mediastinum. Extensive right chest wall gas is likely related to chest tube insertion. IMPRESSION: 1. Right thoracostomy tubes are in good CT position. A large loculated pocket of gas and fluid within the right upper anterior chest is not being drained by the right thoracostomy tubes. POS: [facility]
[2017-02-14] MEDS: Haloperidol Lactate 5 MG/ML VIAL IM SCH ×2 (13:53→20:04)
[2017-02-14] MEDS: Saccharomyces boulardii 250 MG CAP PO SCH (13:58)
[2017-02-14] MEDS: Insulin Detemir 100 UNITS/ML 30 UNITS in Pre-Filled Syringe 1 EACH SC SCH ×2 (13:58→21:20)
[2017-02-14] MEDS: Insulin Regular 300 UNITS/3 ML VIAL SC PRN ×2 (13:58→18:48)
[2017-02-14] MEDS: fentaNYL 50 mcg/hour Patch TD SCH (15:16)
--- NOTE | 2017-02-14 18:07 | RAD ---
PORTABLE CHEST ONE VIEW 02/14/17 at 5:47 p.m. HISTORY: Dobhoff tube placement. Respiratory failure. FINDINGS/IMPRESSION: Comparison made with earlier exam of 4:06 a.m. from the same date. A feeding tube can be traced to below the level of the diaphragm into the stomach with tip excluded f rom the film. The remainder of the exam is otherwise stable. POS: [facility]
[2017-02-14] MEDS: clonazePAM 1 MG TAB PO SCH (21:19)
--- NOTE | 2017-02-14 21:26 | PRG ---
DATE OF SERVICE: 02/14/2017 SUBJECTIVE: Ms. Andrade wants to talk to her mom. She also wants to go home. She is still building mechanic ally ventilated. I have explained to her. Mom has been at the bedside since she has been here, but she does not believe me at this point. It really does not matter how well I explained things. She refuses to believe anything right now bec ause of her encephalopathic state. She is more alert than she was. She is still on Precedex. Addin g Haldol may help a little bit. OBJECTIVE: LUNGS: Remarkable for distant breath sounds on the right. CARDIOVASCULAR: Regular rhythm. ABDOMEN: Soft. VITAL SIGNS: Stable. Heart rate is 103. Blood pressure is a little elevated late this morning, but was okay this morning at 139/94 and 150/80. Intake and output was positive 42. LABORATORY DATA: White count 13.3, hemoglobin 11.3, platelets 408,000. Sodium 139, potassium 3.7, c hloride 102, bicarb 25, BUN 12, creatinine 0.54, glucose 156. IMPRESSION: 1. Respiratory failure secondary to pneumococcal pneumonia after influenza. 2. Pneumothoraces with [address] done this morning shows either large area of necr otic lung with an air fluid level at the right apex or an area that is incompletely drained by the mo re superior chest tube. At this point in time, she is clinically stable, so I do not think a surgica l procedure is indicated. I have also discussed this with Cardiothoracic Surgery. Just with carina norris aspects of moving her to the OR to attempt an operative procedure are almost prohibitive. She is b antonette a candidate to go down for CT scanning because of her size. We will just probably repeat a CAT scan in a week to 10 days and see if there is improvement of this. She does not have an air leak and there is no evidence of progressive collapse of the right lung, s o there is no urgency here. She remains critically ill and as I have explained to multiple caregivers, as well as family and [facility], I am anticipating that eventually she will end up in a jail with a trach, compl etely bedridden for the rest of her life. She was fairly inactive prior to coming into the hospital and it is unlikely that she will recover from this. We will continue to try, however. Critical care time was 30 minutes.
[2017-02-15] MEDS: Insulin Regular 300 UNITS/3 ML VIAL SC SCH ×4 (00:33→21:02)
[2017-02-15] MEDS: Haloperidol Lactate 5 MG/ML VIAL IM SCH ×4 (00:38→20:57)
[2017-02-15] MEDS: Dexmedetomidine 1,000 MCG in Sodium Chloride 0.9% 250 ML 240 ML IVPB SCH (05:51)
[2017-02-15 06:21] LABS: #Basophils 0.1 thou/uL (0.0-0.2); #Eosinphils 0.1 thou/uL (0.0-0.7); #Lymphocytes 2.8 thou/uL (1.20-3.40); #Monocytes 0.7 thou/uL (0.11-0.59); %Basophils 0.6 % (0.0-1.0); %Eosinophils 1.3 % (0.0-10.0); %Lymphocytes 26.3 % (21.0-51.0); %Monocytes 6.9 % (0.0-10.0); %Neutrophils 64.9 % (42.0-75.0); Hemoglobin 10.4 g/dL (12.0-16.0); Mean Corpuscular HGB CONC 32.7 g/dL (32.0-36.0); Mean Corpuscular Hemoglobin 30.8 pg (27.0-31.0); Mean Corpuscular Volume 94.4 fl (81.0-99.0); Mean Platelet Volume 7.9 fL (7.4-10.4); Platelet Count 352 thou/uL (130-400); RBC Distribution Width 12.4 % (11.5-14.5); Red Blood Cell (RBC) Count 3.39 mill/uL (4.20-5.40); White Blood Cell (WBC) Count 10.8 thou/uL (4.8-10.8)
[2017-02-15 06:49] LABS: Anion Gap 13 mmol/L (10-20); BUN (Urea Nitrogen) 18 mg/dL (7.0-18.7); Calc. Creatinine Clearance 447 mL/min (70-130); Calcium 9.6 mg/dL (7.8-10.44); Carbon Dioxide 26 mmol/L (22-29); Chloride 104 mmol/L (98-107); Estimated GFR-MDRD Greater than 90; Glucose 133 mg/dL (70-105); Potassium 3.5 mmol/L (3.5-5.1); Sodium 139 mmol/L (136-145)
[2017-02-15 07:58] LABS: Magnesium 1.7 mg/dL (1.6-2.6)
[2017-02-15] MEDS: Insulin Detemir 100 UNITS/ML 30 UNITS in Pre-Filled Syringe 1 EACH SC SCH ×3 (08:56→21:02)
[2017-02-15] MEDS: Enoxaparin Sodium 40 MG/0.4 ML SYRINGE SC SCH (08:57)
[2017-02-15] MEDS: Saccharomyces boulardii 250 MG CAP PO SCH (08:57)
[2017-02-15] MEDS: Lisinopril 10 MG TAB PO SCH (08:57)
[2017-02-15] MEDS: Famotidine 20 MG TAB PER TUBE SCH ×2 (08:57→20:57)
--- NOTE | 2017-02-15 09:06 | RAD ---
CHEST: Date: 02/15/17 HISTORY: ICU chest, follow-up. COMPARISON: 02/14/17. FINDINGS: There is persistent enlargement of the cardiac silhouette and diffuse opacification of right hemithor ax. Left basilar opacity is present. There is vascular prominence. Tracheostomy is again seen. There has been placement of an enteric catheter partially visualized. IMPRESSION: 1. Enteric catheter placed, partially visualized. 2. Diffuse opacification right hemithorax. POS: [facility]
--- NOTE | 2017-02-15 11:09 | PDOC.PN ---
- Subjective Encounter Start Date: 02/15/17 Encounter Start Time: 11:07 Subjective: sleepy - Objective Resuscitation Status: Resuscitation Status FULL:Full Resuscitation MAR Reviewed: Yes Vital Signs & Weight: Vital Signs (12 hours) Temp Pulse Resp BP Pulse Ox 02/15/17 10:37 86 127/78 02/15/17 10:00 21 H 02/15/17 08:57 116/71 02/15/17 08:00 98.5 F 85 20 96 02/15/17 07:11 89 131/66 02/15/17 07:10 90 18 98 02/15/17 07:00 98.5 F 02/15/17 06:00 24 H 02/15/17 04:00 98.7 F 21 H 02/15/17 02:59 81 02/15/17 02:00 24 H 02/15/17 01:00 89 26 H 97 02/15/17 00:54 87 02/15/17 00:00 99.0 F 23 H Weight Admit Weight 414 lb Weight 414 lb Most Recent Monitor Data Heart Rate from ECG 83 NIBP 127/78 NIBP BP-Mean 96 Respiration from ECG 19 SpO2 98 I&O: 02/14/17 02/15/17 02/16/17 06:59 06:59 06:59 Intake Total 1192 1290 Output Total 1150 4242 268 Balance 42 -2952 -268 Result Diagrams: 02/15/17 05:50 02/15/17 05:49 Additional Labs: Accuchecks 02/15/17 02/15/17 02/15/17 09:02 05:54 00:32 POC Glucose 107 124 H 131 H 02/14/17 02/14/17 18:19 13:31 POC Glucose 152 H 160 H Phys Exam - Physical Examination Constitutional: NAD Neck: no JVD poor BS, worse on right Cardiovascular: RRR, no significant murmur Gastrointestinal: soft, non-tender, positive bowel sounds Musculoskeletal: edema present Dx/Plan (1) Acute on chronic respiratory failure with hypercapnia Code(s): J96.22 - ACUTE AND CHRONIC RESPIRATORY FAILURE WITH HYPERCAPNIA Status: Acute (2) PNA (pneumonia) Code(s): J18.9 - PNEUMONIA, UNSPECIFIED ORGANISM Status: Acute Qualifiers: Pneumonia type: due to unspecified organism Laterality: right Lung location: unspecified part of lung Qualified Code(s): J18.9 - Pneumonia, unspecified organism (3) Pneumothorax, right Code(s): J93.9 - PNEUMOTHORAX, UNSPECIFIED Status: Acute (4) Sepsis Code(s): A41.9 - SEPSIS, UNSPECIFIED ORGANISM Status: Acute Qualifiers: Sepsis type: Streptococcus, other Qualified Code(s): A40.8 - Other streptococcal sepsis (5) DM2 (diabetes mellitus, type 2) Status: Chronic Qualifiers: Diabetes mellitus complication status: without complication (6) HTN (hypertension) Code(s): I10 - ESSENTIAL (PRIMARY) HYPERTENSION Status: Chronic Qualifiers: Hypertension type: essential hypertension Qualified Code(s): I10 - Essential (primary) hypertension (7) Morbid obesity Code(s): E66.01 - MORBID (SEVERE) OBESITY DUE TO EXCESS CALORIES Status: Chronic (8) Loculated pleural effusion Code(s): J90 - PLEURAL EFFUSION, NOT ELSEWHERE CLASSIFIED Status: Acute - Plan post trach, vent dependent -: C tubes on right -: accu/ss -: discuss with intesivist * .
[2017-02-15] MEDS: clonazePAM 1 MG TAB PO SCH (20:57)
--- NOTE | 2017-02-15 22:06 | PRG ---
DATE OF SERVICE: 02/15/2017 SUBJECTIVE: Ms. Andrade remains mechanically ventilated. She is a little more cooperative today. H fawad I think is helping. OBJECTIVE: VITAL SIGNS: Heart rate is 110, blood pressure 144/75, respiratory rate 13. LUNGS: Clear anteriorly. CARDIOVASCULAR: Regular rhythm. ABDOMEN: Soft. She is still on Precedex as well. IMPRESSION: 1. Respiratory failure. 2. ICU encephalopathy. 3. Status post pneumococcal sepsis. 4. Pneumothorax with either necrotic lung in her upper lung field or residual airspace. PLAN: She is not a candidate for thoracotomy in my opinion at this point in time and will never be a good candidate for thoracotomy. We will continue with current management. We will probably repeat a CT of her chest in a week to 10 days to see if there is any improvement in her radiograph. She is clinically stable. We would continue to slowly wean from mechanical ventilation. She appears to be finally making some progress. Critical care time was 30 minutes.
[2017-02-16] MEDS: Insulin Regular 300 UNITS/3 ML VIAL SC SCH ×5 (01:05→18:08)
[2017-02-16] MEDS: Haloperidol Lactate 5 MG/ML VIAL IM SCH ×4 (01:06→19:09)
[2017-02-16] MEDS: Lorazepam 2 MG/ML VIAL SLOW IVP PRN (05:22)
[2017-02-16 05:58] LABS: #Basophils 0.1 thou/uL (0.0-0.2); #Eosinphils 0.2 thou/uL (0.0-0.7); #Lymphocytes 2.2 thou/uL (1.20-3.40); #Monocytes 0.8 thou/uL (0.11-0.59); #Neutrophils 6.4 thou/uL (1.40-6.50); %Basophils 0.6 % (0.0-1.0); %Lymphocytes 22.9 % (21.0-51.0); %Monocytes 8.2 % (0.0-10.0); %Neutrophils 66.2 % (42.0-75.0); Hemoglobin 10.3 g/dL (12.0-16.0); Mean Corpuscular HGB CONC 31.8 g/dL (32.0-36.0); Mean Corpuscular Volume 94.3 fl (81.0-99.0); Mean Platelet Volume 7.5 fL (7.4-10.4); Platelet Count 360 thou/uL (130-400); RBC Distribution Width 12.5 % (11.5-14.5); Red Blood Cell (RBC) Count 3.45 mill/uL (4.20-5.40); White Blood Cell (WBC) Count 9.7 thou/uL (4.8-10.8)
[2017-02-16 06:20] LABS: Anion Gap 13 mmol/L (10-20); BUN (Urea Nitrogen) 15 mg/dL (7.0-18.7); Calc. Creatinine Clearance 448 mL/min (70-130); Carbon Dioxide 28 mmol/L (22-29); Chloride 103 mmol/L (98-107); Estimated GFR-MDRD Greater than 90; Glucose 137 mg/dL (70-105); Magnesium 1.4 mg/dL (1.6-2.6); Potassium 3.4 mmol/L (3.5-5.1); Sodium 141 mmol/L (136-145)
--- NOTE | 2017-02-16 08:04 | RAD ---
PORTABLE SEMIUPRIGHT FRONTAL CHEST RADIOGRAPH: DATE: . COMPARISON: 02/15/17. HISTORY: Pneumothorax, chest tubes. FINDINGS: Tracheostomy tube and enteric tube in stable position. No pneumothorax is seen. There is extensive pleural and parenchymal opacity involving the right lung with near-complete opacif ication of the right base and medial aspect right upper lobe region. Two chest tubes are in place on the right. The superiormost chest tube is unchanged in position, demonstrating either tortuosity or kinking. There is persistent airspace disease in the left perihilar region and left lung base. IMPRESSION: No significant interval change. POS: [facility]
[2017-02-16] MEDS: Famotidine 20 MG TAB PER TUBE SCH ×2 (09:00→19:15)
[2017-02-16] MEDS: Saccharomyces boulardii 250 MG CAP PO SCH (09:01)
[2017-02-16] MEDS: Lisinopril 10 MG TAB PO SCH (09:02)
[2017-02-16] MEDS: Enoxaparin Sodium 40 MG/0.4 ML SYRINGE SC SCH (09:02)
[2017-02-16] MEDS: Insulin Detemir 100 UNITS/ML 30 UNITS in Pre-Filled Syringe 1 EACH SC SCH ×2 (09:02→19:16)
--- NOTE | 2017-02-16 09:46 | PDOC.PN ---
- Subjective Encounter Start Date: 02/16/17 Encounter Start Time: 09:44 Subjective: alert, no distress - Objective Resuscitation Status: Resuscitation Status FULL:Full Resuscitation MAR Reviewed: Yes Vital Signs & Weight: Vital Signs (12 hours) Temp Pulse Resp BP Pulse Ox 02/16/17 09:02 166/90 H 02/16/17 08:16 134 H 144/80 H 02/16/17 08:15 134 H 27 H 96 02/16/17 06:00 24 H 02/16/17 04:00 98.1 F 23 H 02/16/17 02:57 125 H 128/77 02/16/17 02:00 21 H 02/16/17 00:00 98.2 F 21 H 02/15/17 23:02 114 H 125/74 02/15/17 22:00 22 H Weight Admit Weight 414 lb Weight 414 lb 4.8 oz Most Recent Monitor Data Heart Rate from ECG 137 NIBP 170/87 NIBP BP-Mean 112 Respiration from ECG 20 SpO2 91 I&O: 02/15/17 02/16/17 02/17/17 06:59 06:59 06:59 Intake Total 1290 1258.3 Output Total 4242 1036 Balance -2952 222.3 Result Diagrams: 02/16/17 05:41 02/16/17 05:41 Additional Labs: Accuchecks 02/16/17 02/15/17 02/15/17 05:43 22:24 21:00 POC Glucose 133 H 126 H 133 H 02/15/17 16:19 POC Glucose 130 H Phys Exam - Physical Examination Constitutional: NAD Neck: no JVD coarse BS, bilat Cardiovascular: RRR, no significant murmur Gastrointestinal: soft, no distention, positive bowel sounds Musculoskeletal: edema present Dx/Plan (1) Acute on chronic respiratory failure with hypercapnia Code(s): J96.22 - ACUTE AND CHRONIC RESPIRATORY FAILURE WITH HYPERCAPNIA Status: Acute (2) PNA (pneumonia) Code(s): J18.9 - PNEUMONIA, UNSPECIFIED ORGANISM Status: Acute Qualifiers: Pneumonia type: due to unspecified organism Laterality: right Lung location: unspecified part of lung Qualified Code(s): J18.9 - Pneumonia, unspecified organism (3) Pneumothorax, right Code(s): J93.9 - PNEUMOTHORAX, UNSPECIFIED Status: Acute (4) Sepsis Code(s): A41.9 - SEPSIS, UNSPECIFIED ORGANISM Status: Acute Qualifiers: Sepsis type: Streptococcus, other Qualified Code(s): A40.8 - Other streptococcal sepsis (5) DM2 (diabetes mellitus, type 2) Status: Chronic Qualifiers: Diabetes mellitus complication status: without complication (6) HTN (hypertension) Code(s): I10 - ESSENTIAL (PRIMARY) HYPERTENSION Status: Chronic Qualifiers: Hypertension type: essential hypertension Qualified Code(s): I10 - Essential (primary) hypertension (7) Morbid obesity Code(s): E66.01 - MORBID (SEVERE) OBESITY DUE TO EXCESS CALORIES Status: Chronic (8) Loculated pleural effusion Code(s): J90 - PLEURAL EFFUSION, NOT ELSEWHERE CLASSIFIED Status: Acute - Plan resp failure, has trach, being weaned -: nutrition per tube -: has chest tubes * .
[2017-02-16] MEDS ORDERED: Potassium Phosphate 9 MMOL in Sodium Chloride 0.9% 100 ML IVPB PRN (12:52)
[2017-02-16] MEDS ORDERED: Magnesium Oxide 400 MG TAB PO PRN (12:52)
[2017-02-16] MEDS ORDERED: Magnesium 2 GM/NS 0.9% 100 ML 2 GM in Premix Bag 1 BAG IVPB PRN (12:52)
[2017-02-16] MEDS ORDERED: Potassium Chloride 20 MEQ TAB PO PRN (12:52)
[2017-02-16] MEDS ORDERED: Potassium Chloride 40 MEQ in Premix Bag 1 BAG IVPB PRN (12:52)
[2017-02-16] MEDS ORDERED: Potassium Phosphate 15 MMOL in Sodium Chloride 0.9% 250 ML 250 ML IV PRN (12:52)
[2017-02-16] MEDS ORDERED: Potassium Phosphate 12 MMOL in Sodium Chloride 0.9% 250 ML 250 ML IV PRN (12:52)
[2017-02-16] MEDS ORDERED: Potassium Chloride 40 MEQ in Sodium Chloride 0.9% 250 ML 250 ML IVPB PRN (12:52)
[2017-02-16] MEDS: Insulin Regular 300 UNITS/3 ML VIAL SC PRN (18:16)
[2017-02-16] MEDS: clonazePAM 1 MG TAB PO SCH (19:15)
[2017-02-16] MEDS ORDERED: Digoxin 0.5 MG/2 ML AMP ONE (19:44)
--- NOTE | 2017-02-16 19:51 | PRG ---
DATE OF SERVICE: 02/16/2017 SUBJECTIVE: Mariza Andrade waited for an hour and a half on trach collar today. She is still quite hypoxic on room air. OBJECTIVE: VITAL SIGNS: Blood pressure is 157/75, heart rate 120-130 range, respiratory rate in the 30s. LUNGS: Remarkable for equal breath sounds. HEART: Regular rhythm. ABDOMEN: Soft. IMAGING: Chest radiograph is unchanged. LABORATORY DATA: White count 9.7, hemoglobin 10.3, and platelets 360. Sodium 141, potassium 3.4, chloride 103, bicarb 28, BUN 15, creatinine 0.5. IMPRESSION: 1. Respiratory failure after pneumonia with sepsis. 2. Life threatening obesity. 3. Status post trach with no PEG. 4. Status post 2 chest tubes for pneumothorax that was spontaneous. 5. Air fluid level at her apex on the right. It is unclear whether this is in lung parenchymal or the pleural space. She is clinically stable at this point, we will probably just repeat her CT here in a week to [address] She will likely be in the hospital for several months. Critical Care time 35 min. HEMA
[2017-02-17] MEDS: Insulin Regular 300 UNITS/3 ML VIAL SC SCH ×4 (00:54→17:41)
[2017-02-17] MEDS: Haloperidol Lactate 5 MG/ML VIAL IM SCH ×3 (03:27→14:22)
[2017-02-17 05:11] LABS: #Basophils 0.1 thou/uL (0.0-0.2); #Eosinphils 0.2 thou/uL (0.0-0.7); #Monocytes 0.7 thou/uL (0.11-0.59); #Neutrophils 4.5 thou/uL (1.40-6.50); %Basophils 0.8 % (0.0-1.0); %Eosinophils 2.4 % (0.0-10.0); %Lymphocytes 26.7 % (21.0-51.0); %Monocytes 9.3 % (0.0-10.0); %Neutrophils 60.9 % (42.0-75.0); Hemoglobin 9.8 g/dL (12.0-16.0); Mean Corpuscular HGB CONC 32.4 g/dL (32.0-36.0); Mean Corpuscular Hemoglobin 30.4 pg (27.0-31.0); Mean Corpuscular Volume 93.9 fl (81.0-99.0); Mean Platelet Volume 7.6 fL (7.4-10.4); Platelet Count 318 thou/uL (130-400); RBC Distribution Width 12.6 % (11.5-14.5); Red Blood Cell (RBC) Count 3.23 mill/uL (4.20-5.40); White Blood Cell (WBC) Count 7.4 thou/uL (4.8-10.8)
[2017-02-17 05:20] LABS: Anion Gap 12 mmol/L (10-20); BUN (Urea Nitrogen) 10 mg/dL (7.0-18.7); Calc. Creatinine Clearance 474 mL/min (70-130); Calcium 9.6 mg/dL (7.8-10.44); Carbon Dioxide 30 mmol/L (22-29); Chloride 102 mmol/L (98-107); Estimated GFR-MDRD Greater than 90; Glucose 134 mg/dL (70-105); Magnesium 1.5 mg/dL (1.6-2.6); Potassium 3.5 mmol/L (3.5-5.1); Sodium 140 mmol/L (136-145)
--- NOTE | 2017-02-17 08:09 | RAD ---
CHEST 1 VIEW: Date: 02/17/17 COMPARISON: Previous day. INDICATION: Chest tube evaluation. FINDINGS: Partially imaged, two right thoracostomy tubes are present. Interval change in position since prior e xam. Correlate clinically. Redemonstration of pleural and parenchymal opacification throughout the right hemithorax. Left basila r density is seen partially obscured by the enlarged cardiac silhouette. IMPRESSION: Right thoracostomy tubes are repositioned when compared to prior exam. Correlate clinically. There is diffuse opacification of the right hemithorax again noted. Continued follow-up advised. POS: [facility]
[2017-02-17] MEDS: Famotidine 20 MG TAB PER TUBE SCH ×2 (08:55→21:14)
[2017-02-17] MEDS: Enoxaparin Sodium 40 MG/0.4 ML SYRINGE SC SCH (08:55)
[2017-02-17] MEDS: Lisinopril 10 MG TAB PO SCH (08:55)
[2017-02-17] MEDS: Insulin Detemir 100 UNITS/ML 30 UNITS in Pre-Filled Syringe 1 EACH SC SCH ×3 (08:56→21:14)
[2017-02-17] MEDS: Saccharomyces boulardii 250 MG CAP PO SCH (08:56)
--- NOTE | 2017-02-17 08:57 | PDOC.PN ---
- Subjective Encounter Start Date: 02/17/17 Encounter Start Time: 08:55 Subjective: has tracheostomy, no distress - Objective Resuscitation Status: Resuscitation Status FULL:Full Resuscitation MAR Reviewed: Yes Vital Signs & Weight: Vital Signs (12 hours) Temp Pulse Resp BP Pulse Ox 02/17/17 08:11 112 H 157/88 H 02/17/17 08:10 114 H 26 H 96 02/17/17 06:00 22 H 02/17/17 04:00 99.3 F 21 H 02/17/17 02:41 116 H 02/17/17 02:00 21 H 02/17/17 00:22 118 H 30 H 94 L 02/17/17 00:00 99.3 F 22 H 02/16/17 22:36 117 H 02/16/17 22:00 25 H Weight Admit Weight 414 lb Weight 413 lb 14.4 oz Most Recent Monitor Data Heart Rate from ECG 113 NIBP 145/83 NIBP BP-Mean 100 Respiration from ECG 21 SpO2 97 I&O: 02/16/17 02/17/17 02/18/17 06:59 06:59 06:59 Intake Total 1258.3 793 Output Total 1036 1010 Balance 222.3 -217 Result Diagrams: 02/17/17 04:57 02/17/17 04:57 Additional Labs: Accuchecks 02/17/17 02/16/17 02/16/17 04:58 21:57 18:03 POC Glucose 130 H 136 H 133 H 02/16/17 02/16/17 12:39 09:07 POC Glucose 144 H 145 H Phys Exam - Physical Examination Neck: no JVD coarse BS, R>L Cardiovascular: RRR, no significant murmur Gastrointestinal: soft, positive bowel sounds Musculoskeletal: edema present Dx/Plan (1) Acute on chronic respiratory failure with hypercapnia Code(s): J96.22 - ACUTE AND CHRONIC RESPIRATORY FAILURE WITH HYPERCAPNIA Status: Acute (2) PNA (pneumonia) Code(s): J18.9 - PNEUMONIA, UNSPECIFIED ORGANISM Status: Acute Qualifiers: Pneumonia type: due to unspecified organism Laterality: right Lung location: unspecified part of lung Qualified Code(s): J18.9 - Pneumonia, unspecified organism (3) Pneumothorax, right Code(s): J93.9 - PNEUMOTHORAX, UNSPECIFIED Status: Acute (4) Sepsis Code(s): A41.9 - SEPSIS, UNSPECIFIED ORGANISM Status: Acute Qualifiers: Sepsis type: Streptococcus, other Qualified Code(s): A40.8 - Other streptococcal sepsis (5) DM2 (diabetes mellitus, type 2) Status: Chronic Qualifiers: Diabetes mellitus complication status: without complication (6) HTN (hypertension) Code(s): I10 - ESSENTIAL (PRIMARY) HYPERTENSION Status: Chronic Qualifiers: Hypertension type: essential hypertension Qualified Code(s): I10 - Essential (primary) hypertension (7) Morbid obesity Code(s): E66.01 - MORBID (SEVERE) OBESITY DUE TO EXCESS CALORIES Status: Chronic (8) Loculated pleural effusion Code(s): J90 - PLEURAL EFFUSION, NOT ELSEWHERE CLASSIFIED Status: Acute - Plan vent dependent with trach -: nutrition per tube -: chest tube x2 on right -: cont accu, ss, long/ short acting insulin * .
--- NOTE | 2017-02-17 09:58 | PRG ---
DATE OF SERVICE: 02/17/2017 Ms. Andrade is awake. She is more cooperative and seems to be more lucid each day. PHYSICAL EXAMINATION: VITAL SIGNS: Heart rate is controlled, blood pressure 157/88, respiratory rate is in the high 20s, o ximetry is 96. LUNGS: Remarkable for distant breath sounds. CARDIOVASCULAR: Regular rhythm. ABDOMEN: Soft and nontender. EXTREMITIES: Without asymmetry. LABORATORY DATA: White count 7.4, hemoglobin 9.8, platelets 318. Sodium 140, potassium 3.5, chloride 102, bicarb 30, BUN 10, creatinine 0.51, glucose 134. Magnesium is 1.5. IMPRESSION: 1. Pneumonia with respiratory failure. 2. Life threatening obesity. 3. Deconditioning. 4. Status post tracheostomy with an inability to place a PEG. Dobbhoff tube is in place. 5. Spontaneous pneumothorax. Two chest tubes in place on the right. 6. Apical air fluid level. It is unclear whether this is in the pleural space or in the lung. I gu ess is that it is in the pleural space, but we will repeat a CT early next week, it is not causing cl inical problems. We will place her in a neuro chair today for trach collar trials and try to increase her times on tra ch collar each day.
[2017-02-17] MEDS: Insulin Regular 300 UNITS/3 ML VIAL SC PRN (11:10)
[2017-02-17] MEDS: fentaNYL 50 mcg/hour Patch TD SCH (16:04)
[2017-02-17] MEDS: Labetalol HCl 100 MG/20 ML VIAL IVPB PRN (16:43)
[2017-02-17] MEDS: Labetalol HCl 100 MG/20 ML VIAL SLOW IVP PRN ×2 (16:45→17:40)
[2017-02-17] MEDS: clonazePAM 1 MG TAB PO SCH (21:14)
[2017-02-18] MEDS: Insulin Regular 300 UNITS/3 ML VIAL SC SCH ×3 (00:15→11:29)
[2017-02-18 05:00] LABS: #Eosinphils 0.2 thou/uL (0.0-0.7); #Lymphocytes 2.3 thou/uL (1.20-3.40); #Monocytes 0.6 thou/uL (0.11-0.59); #Neutrophils 4.7 thou/uL (1.40-6.50); %Basophils 0.1 % (0.0-1.0); %Eosinophils 2.9 % (0.0-10.0); %Lymphocytes 29.1 % (21.0-51.0); %Monocytes 7.1 % (0.0-10.0); %Neutrophils 60.8 % (42.0-75.0); Hemoglobin 10.1 g/dL (12.0-16.0); Mean Corpuscular HGB CONC 32.1 g/dL (32.0-36.0); Mean Corpuscular Hemoglobin 30.2 pg (27.0-31.0); Mean Corpuscular Volume 94.2 fl (81.0-99.0); Mean Platelet Volume 7.5 fL (7.4-10.4); Platelet Count 311 thou/uL (130-400); RBC Distribution Width 12.7 % (11.5-14.5); Red Blood Cell (RBC) Count 3.34 mill/uL (4.20-5.40); White Blood Cell (WBC) Count 7.8 thou/uL (4.8-10.8)
[2017-02-18 05:19] LABS: Anion Gap 9 mmol/L (10-20); BUN (Urea Nitrogen) 10 mg/dL (7.0-18.7); Calc. Creatinine Clearance 447 mL/min (70-130); Calcium 9.7 mg/dL (7.8-10.44); Carbon Dioxide 34 mmol/L (22-29); Chloride 101 mmol/L (98-107); Estimated GFR-MDRD Greater than 90; Glucose 131 mg/dL (70-105); Magnesium 1.7 mg/dL (1.6-2.6); Potassium 3.4 mmol/L (3.5-5.1); Sodium 141 mmol/L (136-145)
[2017-02-18] MEDS: Enoxaparin Sodium 40 MG/0.4 ML SYRINGE SC SCH (09:23)
[2017-02-18] MEDS: Lisinopril 10 MG TAB PO SCH (09:23)
[2017-02-18] MEDS: Famotidine 20 MG TAB PER TUBE SCH ×2 (09:23→20:18)
[2017-02-18] MEDS: Insulin Detemir 100 UNITS/ML 30 UNITS in Pre-Filled Syringe 1 EACH SC SCH ×2 (09:24→20:26)
[2017-02-18] MEDS: Saccharomyces boulardii 250 MG CAP PO SCH (09:24)
--- NOTE | 2017-02-18 10:17 | PRG ---
DATE OF SERVICE: 02/18/2017 She has a trach collar in place, supine in bed, in the neuro chair, seems to be comfortable. PHYSICAL EXAMINATION: VITAL SIGNS: Sats are 95, pulse 118, blood pressure 140/84, respirations 18. CHEST: Chest reveals rhonchi. CARDIAC: Sinus tachycardia. ABDOMEN: Massive. White count 7000, H&H 10 and 31, platelet count is 311. Electrolytes are normal. X-ray shows opacif ication of the right lung. IMPRESSION: 1. Respiratory failure. 2. Morbid obesity. 3. Pneumonia. 4. Pneumothorax. PLAN: Continue present treatment, hopefully avoid vent overnight if possible. CT of the chest on Mo nday, nutrition and PT. I will follow. One-half hour critical care time.
--- NOTE | 2017-02-18 15:44 | PDOC.PN ---
- Subjective Encounter Start Date: 02/18/17 Encounter Start Time: 15:42 Patient seen at bedside. No overnight events, no new complaints. - Objective Resuscitation Status: Resuscitation Status FULL:Full Resuscitation MAR Reviewed: Yes Vital Signs & Weight: Vital Signs (12 hours) Temp Pulse Resp BP Pulse Ox 02/18/17 14:38 119 H 142/68 H 02/18/17 14:00 20 02/18/17 12:00 96 02/18/17 09:23 141/84 H 02/18/17 08:19 118 H 149/97 H 02/18/17 08:00 98.7 F 118 H 16 97 02/18/17 06:00 19 02/18/17 04:00 99.1 F 29 H Weight Admit Weight 414 lb Weight 414 lb 7.504 oz Most Recent Monitor Data Heart Rate from ECG 119 NIBP 128/72 NIBP BP-Mean 96 Respiration from ECG 18 SpO2 97 I&O: 02/17/17 02/18/17 02/19/17 06:59 06:59 06:59 Intake Total 793 1024 160 Output Total 1010 800 255 Balance -217 224 -95 Result Diagrams: 02/18/17 04:45 02/18/17 04:45 Additional Labs: Accuchecks 02/18/17 02/17/17 02/17/17 08:14 21:13 16:12 POC Glucose 133 H 162 H 137 H Phys Exam - Physical Examination Constitutional: NAD Trach present Neck: no JVD Chest tube present, rhonchi bilaterally Cardiovascular: RRR Tachycardia Gastrointestinal: soft Musculoskeletal: pulses present Neurological: non-focal Dx/Plan (1) Acute on chronic respiratory failure with hypercapnia Code(s): J96.22 - ACUTE AND CHRONIC RESPIRATORY FAILURE WITH HYPERCAPNIA Status: Acute (2) Loculated pleural effusion Code(s): J90 - PLEURAL EFFUSION, NOT ELSEWHERE CLASSIFIED Status: Acute (3) Sepsis Code(s): A41.9 - SEPSIS, UNSPECIFIED ORGANISM Status: Acute Qualifiers: Sepsis type: Streptococcus, other Qualified Code(s): A40.8 - Other streptococcal sepsis (4) DM2 (diabetes mellitus, type 2) Status: Chronic Qualifiers: Diabetes mellitus complication status: without complication (5) HTN (hypertension) Code(s): I10 - ESSENTIAL (PRIMARY) HYPERTENSION Status: Chronic Qualifiers: Hypertension type: essential hypertension Qualified Code(s): I10 - Essential (primary) hypertension (6) Morbid obesity Code(s): E66.01 - MORBID (SEVERE) OBESITY DUE TO EXCESS CALORIES Status: Chronic - Plan cont current plan of care, fletcher catheter, respiratory therapy, DVT proph w/ lovenox * Continue tracheostomy care. * Chest tube care * Tube Feeds * Add IV Fluids * Replete Electrolytes * For CT of the chest Monday
[2017-02-18] MEDS: NS 0.9% w/ 20 MEQ KCL 1,000 ML/1,000 ML BAG IV SCH (16:43)
[2017-02-18] MEDS: clonazePAM 1 MG TAB PO SCH (20:18)
[2017-02-18] MEDS: Haloperidol Lactate 5 MG/ML VIAL IM PRN (23:56)
[2017-02-19] MEDS: Insulin Regular 300 UNITS/3 ML VIAL SC PRN (04:52)
[2017-02-19] MEDS: NS 0.9% w/ 20 MEQ KCL 1,000 ML/1,000 ML BAG IV SCH ×2 (04:52→17:31)
[2017-02-19 04:56] LABS: #Eosinphils 0.4 thou/uL (0.0-0.7); #Monocytes 0.7 thou/uL (0.11-0.59); #Neutrophils 4.5 thou/uL (1.40-6.50); %Basophils 0.4 % (0.0-1.0); %Lymphocytes 26.7 % (21.0-51.0); %Monocytes 9.5 % (0.0-10.0); %Neutrophils 58.4 % (42.0-75.0); Hemoglobin 9.9 g/dL (12.0-16.0); Mean Corpuscular HGB CONC 33.2 g/dL (32.0-36.0); Mean Corpuscular Volume 93.4 fl (81.0-99.0); Mean Platelet Volume 8.1 fL (7.4-10.4); Platelet Count 301 thou/uL (130-400); RBC Distribution Width 13.1 % (11.5-14.5); Red Blood Cell (RBC) Count 3.19 mill/uL (4.20-5.40); White Blood Cell (WBC) Count 7.6 thou/uL (4.8-10.8)
[2017-02-19 05:06] LABS: Anion Gap 11 mmol/L (10-20); BUN (Urea Nitrogen) 11 mg/dL (7.0-18.7); Calc. Creatinine Clearance 538 mL/min (70-130); Calcium 9.5 mg/dL (7.8-10.44); Carbon Dioxide 32 mmol/L (22-29); Chloride 100 mmol/L (98-107); Estimated GFR-MDRD Greater than 90; Glucose 136 mg/dL (70-105); Magnesium 1.7 mg/dL (1.6-2.6); Potassium 4.1 mmol/L (3.5-5.1); Sodium 139 mmol/L (136-145)
[2017-02-19] MEDS: Insulin Detemir 100 UNITS/ML 30 UNITS in Pre-Filled Syringe 1 EACH SC SCH ×2 (08:46→21:54)
[2017-02-19] MEDS: Enoxaparin Sodium 40 MG/0.4 ML SYRINGE SC SCH (08:47)
[2017-02-19] MEDS: Famotidine 20 MG TAB PER TUBE SCH ×2 (08:48→21:56)
[2017-02-19] MEDS: Lisinopril 10 MG TAB PO SCH (08:48)
[2017-02-19] MEDS: Saccharomyces boulardii 250 MG CAP PO SCH (08:49)
--- NOTE | 2017-02-19 13:02 | PRG ---
DATE OF SERVICE: 02/19/2017 SUBJECTIVE: Morbidly obese female. She broke the neuro chair yesterday, unable to get her up today, but trying to get a new neuro chair. OBJECTIVE: VITAL SIGNS: Pulse 115, blood pressure 150/80, respiratory 22. I's and O's are 2127 in and 90 out. CHEST: Decreased breath sounds, anterior rhonchi. CARDIAC: Normal S1 and S2. No gallops. ABDOMEN: Soft, no masses. LABORATORY DATA: White count 7000, H and H is 9 and 29, platelet count is normal. Electrolytes are normal. IMPRESSION: 1. Morbid obesity. 2. Residual apical pneumothorax. 3. Severe deconditioning. PLAN: Continue trach collar and nocturnal ventilation as tolerated, aggressive PT, CAT scan this wee k to assess whether anything can be done about the apical pneumothorax. In the meantime, neb treatments and supportive care. We will follow. [id number] critical care time.
[2017-02-19] MEDS: Haloperidol Lactate 5 MG/ML VIAL IM PRN (13:31)
--- NOTE | 2017-02-19 13:39 | PDOC.PN ---
- Subjective Encounter Start Date: 02/19/17 Encounter Start Time: 13:37 Patient seen at bedside. No overnight events, no new complaints. - Objective Resuscitation Status: Resuscitation Status FULL:Full Resuscitation MAR Reviewed: Yes Vital Signs & Weight: Vital Signs (12 hours) Temp Pulse Pulse Pulse Resp BP BP 02/19/17 12:20 115 H 166/103 H 02/19/17 12:00 98.0 F 02/19/17 10:00 21 H 02/19/17 09:45 98 99 153/81 H 02/19/17 08:48 151/87 H 02/19/17 08:00 98.5 F 113 H 19 02/19/17 07:19 108 H 151/87 H 02/19/17 06:00 21 H 02/19/17 05:00 98.6 F 02/19/17 04:00 24 H 02/19/17 02:41 112 H 02/19/17 02:00 27 H BP Pulse Ox Pulse Ox 02/19/17 12:20 02/19/17 12:00 02/19/17 10:00 02/19/17 09:45 139/75 98 02/19/17 08:48 02/19/17 08:00 97 02/19/17 07:19 02/19/17 06:00 02/19/17 05:00 02/19/17 04:00 02/19/17 02:41 02/19/17 02:00 Weight Admit Weight 414 lb Weight 414 lb Most Recent Monitor Data Heart Rate from ECG 106 NIBP 169/89 NIBP BP-Mean 105 Respiration from ECG 20 SpO2 99 I&O: 02/18/17 02/19/17 02/20/17 06:59 06:59 06:59 Intake Total 1024 2127.9 60 Output Total 800 935 590 Balance 224 1192.9 -530 Result Diagrams: 02/19/17 04:30 02/19/17 04:30 Additional Labs: Accuchecks 02/19/17 02/19/17 02/18/17 10:22 04:48 20:27 POC Glucose 115 H 147 H 107 02/18/17 17:10 POC Glucose 136 H Phys Exam - Physical Examination Constitutional: NAD Trach in place Neck: no JVD Respiratory: clear to auscultation bilateral Cardiovascular: RRR Gastrointestinal: soft Musculoskeletal: pulses present Dx/Plan (1) Acute on chronic respiratory failure with hypercapnia Code(s): J96.22 - ACUTE AND CHRONIC RESPIRATORY FAILURE WITH HYPERCAPNIA Status: Acute (2) Loculated pleural effusion Code(s): J90 - PLEURAL EFFUSION, NOT ELSEWHERE CLASSIFIED Status: Acute (3) Sepsis Code(s): A41.9 - SEPSIS, UNSPECIFIED ORGANISM Status: Acute Qualifiers: Sepsis type: Streptococcus, other Qualified Code(s): A40.8 - Other streptococcal sepsis (4) DM2 (diabetes mellitus, type 2) Status: Chronic Qualifiers: Diabetes mellitus complication status: without complication (5) HTN (hypertension) Code(s): I10 - ESSENTIAL (PRIMARY) HYPERTENSION Status: Chronic Qualifiers: Hypertension type: essential hypertension Qualified Code(s): I10 - Essential (primary) hypertension (6) Morbid obesity Code(s): E66.01 - MORBID (SEVERE) OBESITY DUE TO EXCESS CALORIES Status: Chronic (7) Pneumothorax Code(s): J93.9 - PNEUMOTHORAX, UNSPECIFIED Status: Acute - Plan cont current plan of care, vp digital [employer] social media and crm, respiratory therapy, DVT proph w/ lovenox * Continue weaning from ventilator per PCCM. * IV FLuids * CT care per [facility]. Removal? * Possible CT of chest to evaluate pneumothorax in AM * Supportive care
[2017-02-19] MEDS ORDERED: Labetalol HCl 100 MG/20 ML VIAL SLOW IVP PRN (21:30)
[2017-02-19] MEDS: clonazePAM 1 MG TAB PO SCH (21:56)
[2017-02-19] MEDS: Lorazepam 2 MG/ML VIAL SLOW IVP PRN (21:56)
[2017-02-20] MEDS: Haloperidol Lactate 5 MG/ML VIAL IM PRN ×2 (01:21→12:16)
[2017-02-20] MEDS: Lorazepam 2 MG/ML VIAL SLOW IVP PRN ×2 (02:00→12:16)
[2017-02-20 06:31] LABS: #Basophils 0.1 thou/uL (0.0-0.2); #Eosinphils 0.6 thou/uL (0.0-0.7); #Lymphocytes 2.7 thou/uL (1.20-3.40); #Monocytes 0.9 thou/uL (0.11-0.59); #Neutrophils 4.5 thou/uL (1.40-6.50); %Basophils 0.6 % (0.0-1.0); %Eosinophils 6.7 % (0.0-10.0); %Lymphocytes 30.6 % (21.0-51.0); %Monocytes 10.1 % (0.0-10.0); %Neutrophils 51.9 % (42.0-75.0); Hemoglobin 10.6 g/dL (12.0-16.0); Mean Corpuscular HGB CONC 33.1 g/dL (32.0-36.0); Mean Corpuscular Hemoglobin 30.9 pg (27.0-31.0); Mean Corpuscular Volume 93.3 fl (81.0-99.0); Mean Platelet Volume 7.5 fL (7.4-10.4); Platelet Count 325 thou/uL (130-400); RBC Distribution Width 13.1 % (11.5-14.5); Red Blood Cell (RBC) Count 3.45 mill/uL (4.20-5.40); White Blood Cell (WBC) Count 8.7 thou/uL (4.8-10.8)
[2017-02-20] MEDS: NS 0.9% w/ 20 MEQ KCL 1,000 ML/1,000 ML BAG IV SCH ×3 (06:41→21:44)
[2017-02-20 06:51] LABS: Anion Gap 12 mmol/L (10-20); BUN (Urea Nitrogen) 6 mg/dL (7.0-18.7); Calc. Creatinine Clearance 456 mL/min (70-130); Calcium 9.9 mg/dL (7.8-10.44); Carbon Dioxide 34 mmol/L (22-29); Chloride 97 mmol/L (98-107); Estimated GFR-MDRD Greater than 90; Glucose 135 mg/dL (70-105); Magnesium 1.6 mg/dL (1.6-2.6); Potassium 4.2 mmol/L (3.5-5.1); Sodium 139 mmol/L (136-145)
[2017-02-20] MEDS: Saccharomyces boulardii 250 MG CAP PO SCH (09:08)
[2017-02-20] MEDS: Enoxaparin Sodium 40 MG/0.4 ML SYRINGE SC SCH (09:08)
[2017-02-20] MEDS: Famotidine 20 MG TAB PER TUBE SCH ×2 (09:08→21:40)
[2017-02-20] MEDS: Lisinopril 10 MG TAB PO SCH (09:08)
[2017-02-20] MEDS: Insulin Detemir 100 UNITS/ML 30 UNITS in Pre-Filled Syringe 1 EACH SC SCH ×2 (09:13→21:38)
--- NOTE | 2017-02-20 12:08 | PDOC.PN ---
- Subjective Encounter Start Date: 02/20/17 Encounter Start Time: 12:00 Subjective: Patient seen and examined. No new complaints. No events overnight. - Objective Resuscitation Status: Resuscitation Status FULL:Full Resuscitation MAR Reviewed: Yes Vital Signs & Weight: Vital Signs (12 hours) Temp Pulse Resp BP Pulse Ox 02/20/17 09:08 145/114 H 02/20/17 08:00 98.3 F 15 02/20/17 07:36 122 H 145/114 H 02/20/17 07:32 121 H 34 H 91 L 02/20/17 06:00 35 H 02/20/17 04:00 98.9 F 37 H 02/20/17 02:22 110 H 02/20/17 02:00 32 H 02/20/17 01:23 95 24 H 97 Weight Admit Weight 414 lb Weight 414 lb 11.032 oz Most Recent Monitor Data Heart Rate from ECG 115 NIBP 138/94 NIBP BP-Mean 101 Respiration from ECG 23 SpO2 89 I&O: 02/19/17 02/20/17 02/21/17 06:59 06:59 06:59 Intake Total 2127.9 2033 Output Total 935 3330 160 Balance 1192.9 -1297 -160 Result Diagrams: 02/20/17 06:10 02/20/17 06:10 Additional Labs: Accuchecks 02/20/17 02/20/17 02/19/17 09:12 06:18 22:13 POC Glucose 117 H 122 H 137 H 02/19/17 16:37 POC Glucose 128 H Phys Exam - Physical Examination mild respiratory distress, with trach on oxygen HEENT: moist MMs Trach in place Respiratory: clear to auscultation bilateral decreased air movement on left side Cardiovascular: RRR, no significant murmur Gastrointestinal: soft, positive bowel sounds Neurological: non-focal, moves all 4 limbs Deviation from normal: lethargic, can't understand what she says with trach Dx/Plan (1) Acute on chronic respiratory failure with hypercapnia Code(s): J96.22 - ACUTE AND CHRONIC RESPIRATORY FAILURE WITH HYPERCAPNIA Status: Acute (2) Loculated pleural effusion Code(s): J90 - PLEURAL EFFUSION, NOT ELSEWHERE CLASSIFIED Status: Acute (3) Pneumothorax Code(s): J93.9 - PNEUMOTHORAX, UNSPECIFIED Status: Acute (4) Sepsis Code(s): A41.9 - SEPSIS, UNSPECIFIED ORGANISM Status: Resolved Qualifiers: Sepsis type: Streptococcus, other Qualified Code(s): A40.8 - Other streptococcal sepsis (5) DM2 (diabetes mellitus, type 2) Status: Chronic Qualifiers: Diabetes mellitus complication status: without complication (6) HTN (hypertension) Code(s): I10 - ESSENTIAL (PRIMARY) HYPERTENSION Status: Chronic Qualifiers: Hypertension type: essential hypertension Qualified Code(s): I10 - Essential (primary) hypertension (7) Morbid obesity Code(s): E66.01 - MORBID (SEVERE) OBESITY DUE TO EXCESS CALORIES Status: Chronic - Plan cont current plan of care, PT/OT, respiratory therapy Trach, chest tubes in place * . - Discharge Day Encounter end time: 12:30
--- NOTE | 2017-02-20 12:46 | PRG ---
DATE OF SERVICE: 02/20/2017 SUBJECTIVE: Ms. Andrade is tolerating short periods on trach collar. We need to try to increase her time on a trach collar every day, so we explained to the staff. OBJECTIVE: VITAL SIGNS: Blood pressure 145/114, I am not sure how accurate these blood pressures are given her size. She is afebrile, respiratory rate in the teens. Blood pressure earlier was 138/94. Intake an d output is negative 1297. LUNGS: Clear anteriorly. HEART: Regular rhythm. ABDOMEN: Soft. LABORATORY DATA: White count 8.7, hemoglobin 10.6, platelets 325. Sodium 139, potassium 4.2, chlori de 97, bicarbonate 34, BUN 6, creatinine 0.5. IMPRESSION: 1. Respiratory failure. 2. Life-threatening obesity. 3. Recent pneumonia with spontaneous pneumothorax with indwelling chest tube to waterseal. 4. Air fluid level at the apex on the right. We will probably repeat a CAT scan tomorrow to assess this area. We will try to keep up in the neuro chair and trach collar as long as possible today.
[2017-02-20 14:37] VITALS: BMI 69.0
[2017-02-20] MEDS: Acetaminophen 650 MG/20.3 ML UDCUP PER TUBE PRN (21:40)
[2017-02-21 06:27] LABS: #Eosinphils 0.6 thou/uL (0.0-0.7); #Neutrophils 5.3 thou/uL (1.40-6.50); %Basophils 0.4 % (0.0-1.0); %Eosinophils 6.2 % (0.0-10.0); %Lymphocytes 30.3 % (21.0-51.0); %Monocytes 9.8 % (0.0-10.0); %Neutrophils 53.2 % (42.0-75.0); Mean Corpuscular HGB CONC 33.6 g/dL (32.0-36.0); Mean Corpuscular Volume 92.3 fl (81.0-99.0); Mean Platelet Volume 7.9 fL (7.4-10.4); Platelet Count 351 thou/uL (130-400); RBC Distribution Width 13.5 % (11.5-14.5); Red Blood Cell (RBC) Count 3.54 mill/uL (4.20-5.40)
[2017-02-21 06:39] LABS: Anion Gap 14 mmol/L (10-20); BUN (Urea Nitrogen) 7 mg/dL (7.0-18.7); Calc. Creatinine Clearance 465 mL/min (70-130); Calcium 10.1 mg/dL (7.8-10.44); Carbon Dioxide 32 mmol/L (22-29); Chloride 97 mmol/L (98-107); Estimated GFR-MDRD Greater than 90; Glucose 130 mg/dL (70-105); Magnesium 1.6 mg/dL (1.6-2.6); Potassium 4.2 mmol/L (3.5-5.1); Sodium 139 mmol/L (136-145)
--- NOTE | 2017-02-21 09:11 | RAD ---
CHEST ONE VIEW: History: Chest pain. Tubes. Follow up. Comparison: 02-17-17 FINDINGS: Cardiac silhouette remains magnified, enlarged, and partially obscured by bibasilar atelectasis and pleural fluid. Mediastinum is midline. Lines and tubes appear unchanged in position. No pneumothorax is apparent. IMPRESSION: Dense bilateral airspace disease and other findings are unchanged from the previous study. POS: [facility]
[2017-02-21] MEDS: Lisinopril 10 MG TAB PO SCH (09:50)
[2017-02-21] MEDS: Enoxaparin Sodium 40 MG/0.4 ML SYRINGE SC SCH (09:50)
[2017-02-21] MEDS: Insulin Detemir 100 UNITS/ML 30 UNITS in Pre-Filled Syringe 1 EACH SC SCH ×2 (09:51→20:52)
[2017-02-21] MEDS: Saccharomyces boulardii 250 MG CAP PO SCH (09:51)
[2017-02-21] MEDS: Famotidine 20 MG TAB PER TUBE SCH ×2 (09:51→20:51)
--- NOTE | 2017-02-21 12:54 | PRG ---
DATE OF SERVICE: 02/21/2017 SUBJECTIVE: Ms. Andrade was off ventilator early this morning in a chair for about an hour. She bec slime tachypneic and was placed back on the ventilator. Blood pressure fluctuates depending on whether she is breathing on her own or supported. OBJECTIVE: VITAL SIGNS: She has had blood pressure as high as 181/112, but I am not sure these are accurate giv en her size. LUNGS: Remarkable for distant breath sounds. CARDIOVASCULAR: Regular rhythm. ABDOMEN: Soft. LABORATORY DATA: White count 10, hemoglobin 11.0, platelets 351. Sodium 139, potassium 4.2, chloride 97, bicarbonate 32, BUN 9, creatinine 0.52, glucose 130. IMPRESSION: 1. Pneumonia with respiratory failure. 2. Life-threatening obesity. 3. Spontaneous pneumothorax, status post 2 chest tubes, both chest tubes were removed today. PLAN: Continue mechanical ventilation with T-collar trials. At some point, we will do a CT of her c hest without contrast this week.
--- NOTE | 2017-02-21 15:01 | PDOC.PN ---
- Subjective Encounter Start Date: 02/21/17 Encounter Start Time: 14:59 Ms. Andrade was seen today in follow-up. She has a tracheostomy, and on mechanical ventilation. She is awake,and is able to nod and shake her head to questions asked. - Objective Resuscitation Status: Resuscitation Status FULL:Full Resuscitation MAR Reviewed: Yes Vital Signs & Weight: Vital Signs (12 hours) Temp Pulse Pulse Pulse Resp BP BP 02/21/17 14:42 121 H 172/112 H 02/21/17 14:41 122 H 28 H 02/21/17 14:00 24 H 02/21/17 12:00 98.5 F 26 H 02/21/17 11:38 111 H 166/104 H 02/21/17 10:41 120 H 119 H 153/94 H 02/21/17 10:00 27 H 02/21/17 09:50 181/112 H 02/21/17 08:55 130 H 181/112 H 02/21/17 08:47 125 H 31 H 02/21/17 08:00 98.5 F 125 H 26 H 02/21/17 06:00 35 H 02/21/17 04:00 98.9 F 31 H 02/21/17 03:54 117 H 179/100 H BP Pulse Ox Pulse Ox Pulse Ox 02/21/17 14:42 02/21/17 14:41 99 02/21/17 14:00 02/21/17 12:00 02/21/17 11:38 02/21/17 10:41 142/98 H 96 98 02/21/17 10:00 02/21/17 09:50 02/21/17 08:55 02/21/17 08:47 97 02/21/17 08:00 96 02/21/17 06:00 02/21/17 04:00 02/21/17 03:54 Weight Admit Weight 414 lb Weight 412 lb Most Recent Monitor Data Heart Rate from ECG 132 NIBP 172/112 NIBP BP-Mean 126 Respiration from ECG 19 SpO2 97 I&O: 02/20/17 02/21/17 02/22/17 06:59 06:59 06:59 Intake Total 7829 4438 120 Output Total 7873 1785 730 Balance -1297 -507 -610 Result Diagrams: 02/21/17 06:00 02/21/17 06:00 Additional Labs: Accuchecks 02/21/17 02/21/17 02/20/17 12:11 05:59 21:53 POC Glucose 120 H 131 H 124 H 02/20/17 16:59 POC Glucose 119 H Phys Exam - Physical Examination HEENT: PERRLA + coarse breath sounds Cardiovascular: RRR, no significant murmur Gastrointestinal: soft, positive bowel sounds Musculoskeletal: edema present + generalized edema Dx/Plan (1) Acute respiratory failure with hypoxia Code(s): J96.01 - ACUTE RESPIRATORY FAILURE WITH HYPOXIA Status: Acute (2) Loculated pleural effusion Code(s): J90 - PLEURAL EFFUSION, NOT ELSEWHERE CLASSIFIED Status: Acute (3) PNA (pneumonia) Code(s): J18.9 - PNEUMONIA, UNSPECIFIED ORGANISM Status: Acute Qualifiers: Pneumonia type: due to unspecified organism Laterality: right Lung location: unspecified part of lung Qualified Code(s): J18.9 - Pneumonia, unspecified organism (4) Pneumothorax Code(s): J93.9 - PNEUMOTHORAX, UNSPECIFIED Status: Acute (5) DM2 (diabetes mellitus, type 2) Status: Chronic Qualifiers: Diabetes mellitus complication status: without complication (6) HTN (hypertension) Code(s): I10 - ESSENTIAL (PRIMARY) HYPERTENSION Status: Chronic Qualifiers: Hypertension type: essential hypertension Qualified Code(s): I10 - Essential (primary) hypertension (7) Morbid obesity Code(s): E66.01 - MORBID (SEVERE) OBESITY DUE TO EXCESS CALORIES Status: Chronic - Plan * Ms. Andrade was admitted close to a month ago with shortness of breath. She was found to have a post influenza pneumonia (Pneumococcal pneumonia), with sepsis. She decompensated despite treatment, and was intubated. During this admission she developed a spontaneous right pneumothorax requiring tube thoracostomy. She has remained intubated and has had a tracheostomy and PEG tube placed. Severe life threating obesity complicates her hospital course and her ability to be weaned from the ventilator, as she has a BMI of 68. * She has had trials at [facility], the longest being approximately 2 1/2 hours. * She has completed a full course of antibiotics * HTN- blood pressure is elevated- Lisinopril has been increased, will monitor * DM- blood glucose is stable * Nutritioal support via PEG tube * Continue DVT and GI prophylaxis .
[2017-02-21] MEDS: NS 0.9% w/ 20 MEQ KCL 1,000 ML/1,000 ML BAG IV SCH (17:34)
[2017-02-21] MEDS: Acetaminophen 650 MG/20.3 ML UDCUP PER TUBE PRN (20:52)
[2017-02-22] MEDS ORDERED: Nystatin Powder 15 GM BOT TOP PRN (00:48)
[2017-02-22] MEDS: Acetaminophen 650 MG/20.3 ML UDCUP PER TUBE PRN ×2 (04:21→21:31)
[2017-02-22] MEDS: Lorazepam 2 MG/ML VIAL SLOW IVP PRN ×3 (04:21→21:32)
[2017-02-22 06:43] LABS: #Eosinphils 0.8 thou/uL (0.0-0.7); #Monocytes 1.2 thou/uL (0.11-0.59); #Neutrophils 7.6 thou/uL (1.40-6.50); %Basophils 0.3 % (0.0-1.0); %Eosinophils 6.1 % (0.0-10.0); %Lymphocytes 29.3 % (21.0-51.0); %Monocytes 8.7 % (0.0-10.0); %Neutrophils 55.6 % (42.0-75.0); Hemoglobin 10.9 g/dL (12.0-16.0); Mean Corpuscular HGB CONC 32.1 g/dL (32.0-36.0); Mean Corpuscular Hemoglobin 29.4 pg (27.0-31.0); Mean Corpuscular Volume 91.7 fl (81.0-99.0); Mean Platelet Volume 7.7 fL (7.4-10.4); Platelet Count 379 thou/uL (130-400); RBC Distribution Width 13.9 % (11.5-14.5); Red Blood Cell (RBC) Count 3.71 mill/uL (4.20-5.40); White Blood Cell (WBC) Count 13.7 thou/uL (4.8-10.8)
[2017-02-22 07:06] LABS: Anion Gap 12 mmol/L (10-20); BUN (Urea Nitrogen) 8 mg/dL (7.0-18.7); Calc. Creatinine Clearance 447 mL/min (70-130); Carbon Dioxide 31 mmol/L (22-29); Chloride 98 mmol/L (98-107); Estimated GFR-MDRD Greater than 90; Glucose 141 mg/dL (70-105); Magnesium 1.7 mg/dL (1.6-2.6); Potassium 4.1 mmol/L (3.5-5.1); Sodium 137 mmol/L (136-145)
--- NOTE | 2017-02-22 09:16 | PDOC.PN ---
- Subjective Encounter Start Date: 02/22/17 Encounter Start Time: 09:14 Ms. Andrade was seen today in follow-up. She is awake and alert. She indicates that she feels " so-so". She appears comfortable on the ventilator. - Objective Resuscitation Status: Resuscitation Status FULL:Full Resuscitation MAR Reviewed: Yes Vital Signs & Weight: Vital Signs (12 hours) Temp Pulse Resp BP Pulse Ox 02/22/17 08:38 129 H 151/89 H 02/22/17 08:37 124 H 37 H 97 02/22/17 08:00 98.9 F 126 H 37 H 98 02/22/17 06:00 32 H 02/22/17 04:12 130 H 184/112 H 02/22/17 04:00 98.6 F 30 H 02/22/17 02:00 31 H 02/22/17 01:59 117 H 31 H 97 02/22/17 01:24 116 H 149/71 H 02/22/17 00:00 99.1 F 28 H 02/21/17 22:00 29 H 02/21/17 21:29 124 H 129/77 Weight Admit Weight 414 lb Weight 414 lb Most Recent Monitor Data Heart Rate from ECG 122 NIBP 151/89 NIBP BP-Mean 116 Respiration from ECG 31 SpO2 96 I&O: 02/21/17 02/22/17 02/23/17 06:59 06:59 06:59 Intake Total 1768 2720 Output Total 2275 2460 Balance -507 260 Result Diagrams: 02/22/17 06:00 02/22/17 06:00 Additional Labs: Accuchecks 02/22/17 02/21/17 02/21/17 06:21 17:27 12:11 POC Glucose 142 H 111 H 120 H Phys Exam - Physical Examination HEENT: PERRLA + rhonchi bilaterally Cardiovascular: RRR, no significant murmur Gastrointestinal: soft, non-tender, positive bowel sounds Musculoskeletal: edema present trace pedal edema Dx/Plan (1) Acute respiratory failure with hypoxia Code(s): J96.01 - ACUTE RESPIRATORY FAILURE WITH HYPOXIA Status: Acute (2) Loculated pleural effusion Code(s): J90 - PLEURAL EFFUSION, NOT ELSEWHERE CLASSIFIED Status: Acute (3) PNA (pneumonia) Code(s): J18.9 - PNEUMONIA, UNSPECIFIED ORGANISM Status: Acute Qualifiers: Pneumonia type: due to unspecified organism Laterality: right Lung location: unspecified part of lung Qualified Code(s): J18.9 - Pneumonia, unspecified organism (4) Pneumothorax Code(s): J93.9 - PNEUMOTHORAX, UNSPECIFIED Status: Acute (5) DM2 (diabetes mellitus, type 2) Status: Chronic Qualifiers: Diabetes mellitus complication status: without complication (6) HTN (hypertension) Code(s): I10 - ESSENTIAL (PRIMARY) HYPERTENSION Status: Chronic Qualifiers: Hypertension type: essential hypertension Qualified Code(s): I10 - Essential (primary) hypertension (7) Morbid obesity Code(s): E66.01 - MORBID (SEVERE) OBESITY DUE TO EXCESS CALORIES Status: Chronic - Plan * Post Influenza Pneumonia with sepsis and respiratory failure- She continues to require ventilator support * HTN- blood pressure is elevated, as well as her heart rate- will give a trial of Carvediolol, and monitor * DM- blood glucose is stable * Nutritional Support - tube feeds * DVT and GI prophylaxis
[2017-02-22] MEDS ORDERED: Carvedilol 6.25 MG TAB PER TUBE SCH (09:30)
[2017-02-22] MEDS: Insulin Detemir 100 UNITS/ML 30 UNITS in Pre-Filled Syringe 1 EACH SC SCH ×2 (09:42→21:25)
[2017-02-22] MEDS: Famotidine 20 MG TAB PER TUBE SCH ×2 (09:43→21:13)
[2017-02-22] MEDS: Saccharomyces boulardii 250 MG CAP PO SCH (09:44)
[2017-02-22] MEDS: Lisinopril 20 MG TAB PO SCH (09:44)
[2017-02-22] MEDS: NS 0.9% w/ 20 MEQ KCL 1,000 ML/1,000 ML BAG IV SCH ×2 (09:45→22:37)
[2017-02-22] MEDS: Enoxaparin Sodium 40 MG/0.4 ML SYRINGE SC SCH (09:45)
[2017-02-22] MEDS: Carvedilol 6.25 MG TAB PER TUBE SCH ×2 (09:46→16:43)
--- NOTE | 2017-02-22 10:40 | RAD ---
SINGLE VIEW OF THE CHEST: Comparison: 02-14-17 History: Chest tube removal. FINDINGS: Single view of the chest shows an enlarged cardiomediastinal silhouette. A tracheostomy is seen in go od position. A Dobbhoff tube is partially visualized. This exam is limited secondary to the patient's body habitus. The right sided chest tube appears to have been removed. There is a moderate right ple ural effusion. There may also be a small left pleural effusion. IMPRESSION: 1. Status post chest tube removal without evidence of pneumothorax. 2. Moderate right and small left pleural effusions. POS: [facility]
[2017-02-22] MEDS: Insulin Regular 300 UNITS/3 ML VIAL SC PRN ×2 (11:36→16:44)
--- NOTE | 2017-02-22 14:07 | PRG ---
DATE OF SERVICE: 02/22/2017 SUBJECTIVE: We have explained to the patient again it is imperative that she go on a trach collar ev for increasing periods of time. OBJECTIVE: VITAL SIGNS: Blood pressure 145/88, heart rate 120, respiratory rate is in the teens. LUNGS: Remarkable for equal breath sounds anteriorly. HEART: Regular rhythm. ABDOMEN: Soft. LABORATORY DATA: White count 13.7, hemoglobin 10.9, platelets 379. Sodium 137, potassium 4.1, chloride 90, bicarbonate 31, BUN 8, creatinine 0.54, glucose 141. Intake and output is positive 260 mL. IMPRESSION: 1. Respiratory failure associated with pneumonia, felt to be secondary to pneumococcus. 2. Status post removal of chest tube . It looks like the chest tube site was cultured. I am not sure that this will tell us anything. PLAN: CT of her chest tomorrow without contrast to reevaluate her pleural space. We will try to get her in a neuro chair and get her off the ventilator for a longer period of time today.
[2017-02-22] MEDS: Labetalol HCl 100 MG/20 ML VIAL SLOW IVP PRN (15:46)
[2017-02-22] MEDS: Magnesium Oxide 400 MG TAB PO PRN (17:29)
[2017-02-23] MEDS: Insulin Regular 300 UNITS/3 ML VIAL SC PRN ×3 (04:13→20:13)
[2017-02-23 04:28] LABS: #Eosinphils 0.8 thou/uL (0.0-0.7); #Lymphocytes 3.4 thou/uL (1.20-3.40); #Monocytes 1.1 thou/uL (0.11-0.59); #Neutrophils 9.5 thou/uL (1.40-6.50); %Basophils 0.3 % (0.0-1.0); %Eosinophils 5.2 % (0.0-10.0); %Monocytes 7.3 % (0.0-10.0); %Neutrophils 64.2 % (42.0-75.0); Mean Corpuscular HGB CONC 32.2 g/dL (32.0-36.0); Mean Corpuscular Hemoglobin 29.6 pg (27.0-31.0); Mean Corpuscular Volume 91.8 fl (81.0-99.0); Mean Platelet Volume 7.8 fL (7.4-10.4); Platelet Count 424 thou/uL (130-400); RBC Distribution Width 13.9 % (11.5-14.5); Red Blood Cell (RBC) Count 3.73 mill/uL (4.20-5.40); White Blood Cell (WBC) Count 14.8 thou/uL (4.8-10.8)
[2017-02-23] MEDS: Acetaminophen 650 MG/20.3 ML UDCUP PER TUBE PRN ×2 (04:47→17:30)
[2017-02-23 04:53] LABS: Anion Gap 14 mmol/L (10-20); BUN (Urea Nitrogen) 11 mg/dL (7.0-18.7); Calc. Creatinine Clearance 457 mL/min (70-130); Calcium 9.8 mg/dL (7.8-10.44); Carbon Dioxide 29 mmol/L (22-29); Chloride 98 mmol/L (98-107); Estimated GFR-MDRD Greater than 90; Glucose 158 mg/dL (70-105); Magnesium 1.7 mg/dL (1.6-2.6); Potassium 4.1 mmol/L (3.5-5.1); Sodium 137 mmol/L (136-145)
[2017-02-23] MEDS: Magnesium Oxide 400 MG TAB PO PRN ×2 (05:29→17:30)
[2017-02-23] MEDS: Famotidine 20 MG TAB PER TUBE SCH ×2 (09:46→20:12)
[2017-02-23] MEDS: Carvedilol 6.25 MG TAB PER TUBE SCH ×2 (09:46→17:30)
[2017-02-23] MEDS: Enoxaparin Sodium 40 MG/0.4 ML SYRINGE SC SCH (09:46)
[2017-02-23] MEDS: Saccharomyces boulardii 250 MG CAP PO SCH (09:46)
[2017-02-23] MEDS: Lisinopril 20 MG TAB PO SCH (09:47)
[2017-02-23] MEDS: Insulin Detemir 100 UNITS/ML 30 UNITS in Pre-Filled Syringe 1 EACH SC SCH ×2 (09:47→20:12)
--- NOTE | 2017-02-23 10:27 | CT ---
CT CHEST WITHOUT CONTRAST: History: Air fluid level. Comparison: Multiple prior radiographs as well as CT 02-14-17. FINDINGS: The airfluid level in the right upper hemithorax persists. Compared to the prior CT examination, it i s slightly smaller but still measures 7.7 x 5.8 x 7.6 cm. There is gas along the right thoracostomy t ract. There are also some cavitary areas in the right lower lobe suggesting necrotizing pneumonia. There is mild leftward mediastinal shift. Enteric tube is below the diaphragm and out of the field of view. Tracheostomy tube tip is at the distal trachea near the right main stem bronchus. Small atelectatic changes of the left lung. IMPRESSION: 1. Tracheostomy tube tip at the right mainstem bronchus, 3 mm. Recommend retracting. 2. Focus of gas in the right upper lobe suggests area of necrosis. Necrosis is felt most likely as th is appears to communicate with the right lower lobe areas of necrotic disease. 3. Severe lung hyperinflation. Code CR. Dr. Freedman. POS: [facility]
--- NOTE | 2017-02-23 10:44 | PDOC.PN ---
- Subjective Encounter Start Date: 02/23/17 Encounter Start Time: 10:40 Ms. Andrade was seen today in follow-up.She is intubated and on mechanical ventilation. She is awake and will answer questions by nodding or shaking her heard. she appears a bit dyspneic. - Objective Resuscitation Status: Resuscitation Status FULL:Full Resuscitation MAR Reviewed: Yes Vital Signs & Weight: Vital Signs (12 hours) Temp Pulse Resp BP Pulse Ox 02/23/17 09:47 144/101 H 02/23/17 09:46 144/101 H 02/23/17 07:52 109 H 132/81 02/23/17 07:51 109 H 31 H 97 02/23/17 06:00 34 H 02/23/17 04:00 98.3 F 38 H 02/23/17 02:56 113 H 157/101 H 02/23/17 02:00 30 H 02/23/17 00:39 115 H 43 H 93 L 02/23/17 00:00 98.4 F 33 H 02/22/17 23:00 120 H 143/90 H Weight Admit Weight 414 lb Weight 414 lb 13.889 oz Most Recent Monitor Data Heart Rate from ECG 110 NIBP 139/86 NIBP BP-Mean 104 Respiration from ECG 38 SpO2 95 I&O: 02/22/17 02/23/17 02/24/17 06:59 06:59 06:59 Intake Total 2720 2268 Output Total 2460 1255 Balance 260 1013 Result Diagrams: 02/23/17 04:15 02/23/17 04:15 Additional Labs: Accuchecks 02/23/17 02/22/17 02/22/17 04:12 22:12 16:43 POC Glucose 155 H 174 H 155 H 02/22/17 11:31 POC Glucose 152 H Phys Exam - Physical Examination HEENT: PERRLA + rhonchi bilaterally, no rales Cardiovascular: RRR, no significant murmur Gastrointestinal: soft, non-tender, positive bowel sounds Musculoskeletal: edema present 2+ pitting edema Dx/Plan (1) Acute respiratory failure with hypoxia Code(s): J96.01 - ACUTE RESPIRATORY FAILURE WITH HYPOXIA Status: Acute (2) Loculated pleural effusion Code(s): J90 - PLEURAL EFFUSION, NOT ELSEWHERE CLASSIFIED Status: Acute (3) PNA (pneumonia) Code(s): J18.9 - PNEUMONIA, UNSPECIFIED ORGANISM Status: Acute Qualifiers: Pneumonia type: due to unspecified organism Laterality: right Lung location: unspecified part of lung Qualified Code(s): J18.9 - Pneumonia, unspecified organism (4) Pneumothorax Code(s): J93.9 - PNEUMOTHORAX, UNSPECIFIED Status: Acute (5) DM2 (diabetes mellitus, type 2) Status: Chronic Qualifiers: Diabetes mellitus complication status: without complication (6) HTN (hypertension) Code(s): I10 - ESSENTIAL (PRIMARY) HYPERTENSION Status: Chronic Qualifiers: Hypertension type: essential hypertension Qualified Code(s): I10 - Essential (primary) hypertension (7) Morbid obesity Code(s): E66.01 - MORBID (SEVERE) OBESITY DUE TO EXCESS CALORIES Status: Chronic - Plan * Acute Respiratory failure from Post Influenza Pneumonia- she continues to require ventilator support * She has been given trials of T-tube off periodically * CT-scan of chest results noted * HTN- blood pressure is still elevated, but trending down * DM- blood glucose is stable * Severe life threatening obesity- BMI of 68, complicating her hospital course and her ability to recover * Nutritional support- via tube feeds.
--- NOTE | 2017-02-23 12:20 | PRG ---
DATE OF SERVICE: 02/23/2017 SUBJECTIVE: Ms. Mariza Andrade went for CT this morning. She is doing well. She had a rough night . She apparently got very upset when her mother arrived last night. OBJECTIVE: VITAL SIGNS: Blood pressure is 132/81, heart rate is 109, respiratory rate was in the 30s. She is m echanically ventilated. LUNGS: Remarkable for coarse equal breath sounds. HEART: Regular rhythm. ABDOMEN: Soft. LABORATORY DATA: White count 14.8, hemoglobin 11.0, platelets 424,000. Sodium 137, potassium 4.1, c hloride 98, bicarbonate 29, BUN 11, creatinine 0.53, glucose been in the 140 to 170 range. IMPRESSION: Respiratory failure. I reviewed her CT, which she appears to have necrosis of her upper lobe on the right. Her Bivona tracheostomy tube was just into the right main stem bronchus, althoug h the left lung was aerated. We have pulled that to back about an inch and a half. We will continue current care. If she is not weanable, we will continue trach collar trials. I do not feel any type of surgical procedure. Her tube placement is indicated on the right. Perhaps, we can get a lab every other day in the near future.
--- NOTE | 2017-02-23 15:12 | RAD ---
ABDOMEN ONE VIEW: History: Dobbhoff tube placement. Comparison: None. FINDINGS: Dobbhoff tube tip is at the second portion of the duodenum. IMPRESSION: Dobbhoff tube tip is at the second portion of the duodenum. POS: [facility]
--- NOTE | 2017-02-23 15:25 | EKG ---
Test Reason : PNEUMONIA Blood Pressure : / mmHG Vent. Rate : 113 BPM Atrial Rate : 113 BPM P-R Int : 132 ms QRS Dur : 090 ms QT Int : 364 ms P-R-T Axes : 054 022 020 degrees QTc Int : 499 ms Sinus tachycardia Septal infarct , age undetermined Abnormal ECG Confirmed by JOSEY STEPHENS ([id number]), index editor KIMANI WILKES ([id number]) on 02/23/2017 3:24:41 PM Referred By: Confirmed By:JOSEY STEPHENS
[2017-02-23] MEDS: NS 0.9% w/ 20 MEQ KCL 1,000 ML/1,000 ML BAG IV SCH (20:00)
[2017-02-24] MEDS: Acetaminophen 650 MG/20.3 ML UDCUP PER TUBE PRN ×2 (00:01→23:23)
[2017-02-24] MEDS: Ondansetron HCl/PF 4 MG/2 ML Vial SLOW IVP PRN (02:38)
[2017-02-24 04:46] LABS: #Basophils 0.1 thou/uL (0.0-0.2); #Eosinphils 0.6 thou/uL (0.0-0.7); #Lymphocytes 3.4 thou/uL (1.20-3.40); #Monocytes 1.2 thou/uL (0.11-0.59); #Neutrophils 11.4 thou/uL (1.40-6.50); %Basophils 0.3 % (0.0-1.0); %Eosinophils 3.7 % (0.0-10.0); %Lymphocytes 20.2 % (21.0-51.0); %Monocytes 7.3 % (0.0-10.0); %Neutrophils 68.5 % (42.0-75.0); Hemoglobin 10.7 g/dL (12.0-16.0); Mean Corpuscular HGB CONC 31.8 g/dL (32.0-36.0); Mean Corpuscular Hemoglobin 29.3 pg (27.0-31.0); Mean Corpuscular Volume 92.1 fl (81.0-99.0); Mean Platelet Volume 7.9 fL (7.4-10.4); Platelet Count 461 thou/uL (130-400); RBC Distribution Width 13.9 % (11.5-14.5); Red Blood Cell (RBC) Count 3.65 mill/uL (4.20-5.40); White Blood Cell (WBC) Count 16.6 thou/uL (4.8-10.8)
[2017-02-24 05:12] LABS: Anion Gap 12 mmol/L (10-20); BUN (Urea Nitrogen) 13 mg/dL (7.0-18.7); Calc. Creatinine Clearance 466 mL/min (70-130); Calcium 10.1 mg/dL (7.8-10.44); Carbon Dioxide 32 mmol/L (22-29); Chloride 97 mmol/L (98-107); Estimated GFR-MDRD Greater than 90; Glucose 143 mg/dL (70-105); Magnesium 1.8 mg/dL (1.6-2.6); Potassium 4.3 mmol/L (3.5-5.1); Sodium 137 mmol/L (136-145)
[2017-02-24] MEDS: Lisinopril 20 MG TAB PO SCH (08:22)
[2017-02-24] MEDS: Saccharomyces boulardii 250 MG CAP PO SCH (08:22)
[2017-02-24] MEDS: Enoxaparin Sodium 40 MG/0.4 ML SYRINGE SC SCH (08:23)
[2017-02-24] MEDS: Carvedilol 6.25 MG TAB PER TUBE SCH ×2 (08:23→16:55)
[2017-02-24] MEDS: Famotidine 20 MG TAB PER TUBE SCH ×2 (08:23→20:39)
[2017-02-24] MEDS: Insulin Detemir 100 UNITS/ML 30 UNITS in Pre-Filled Syringe 1 EACH SC SCH ×2 (08:23→20:38)
--- NOTE | 2017-02-24 15:02 | PRG ---
DATE OF SERVICE: 02/24/2017 SUBJECTIVE: Ms. Andrade is willing to go on a trach collar again today. PHYSICAL EXAMINATION: VITAL SIGNS: She is afebrile, heart rate is 102, blood pressure 169/105, respiratory rate is in the 20s to low 30s. LUNGS: Remarkable for coarse equal breath sounds. HEART: Regular rhythm. ABDOMEN: Soft. LABORATORY DATA: White count 16.6, hemoglobin 10.7, platelets 461. Sodium 137, potassium 4.3, chloride 97, bicarbonate 32, BUN 13, creatinine 0.52. IMPRESSION AND PLAN: 1. Respiratory failure associated with necrotizing pneumonia. 2. Failure to quickly wean from mechanical ventilation with a tracheostomy at some point in time. O nce she is weaned, we will try a Aristides XL proximal to see if this tracheostomy works since it will h ave an inner cannula. She will ever wean from a tracheostomy tube given her extreme deconditioning a nd critical illness myopathy on top of that.
[2017-02-24] MEDS: NS 0.9% w/ 20 MEQ KCL 1,000 ML/1,000 ML BAG IV SCH (17:00)
--- NOTE | 2017-02-24 18:14 | PDOC.PN ---
- Subjective Encounter Start Date: 02/24/17 Encounter Start Time: 18:13 Subjective: Seen and examined still intubated --condition same - Objective Resuscitation Status: Resuscitation Status FULL:Full Resuscitation Vital Signs & Weight: Vital Signs (12 hours) Temp Pulse Pulse Pulse Resp BP BP 02/24/17 17:56 35 H 02/24/17 17:18 109 H 152/102 H 02/24/17 16:55 169/118 H 02/24/17 16:00 98.7 F 33 H 02/24/17 14:05 104 H 169/118 H 02/24/17 14:00 29 H 02/24/17 12:00 98.4 F 02/24/17 10:51 131 H 119 H 171/107 H 02/24/17 08:30 02/24/17 08:23 157/101 H 02/24/17 08:22 157/101 H 02/24/17 08:00 98.7 F 101 H 23 H 02/24/17 07:02 104 H 157/101 H BP Pulse Ox Pulse Ox 02/24/17 17:56 02/24/17 17:18 02/24/17 16:55 02/24/17 16:00 02/24/17 14:05 02/24/17 14:00 02/24/17 12:00 02/24/17 10:51 161/106 H 94 L 02/24/17 08:30 90 L 02/24/17 08:23 02/24/17 08:22 02/24/17 08:00 98 02/24/17 07:02 Weight Admit Weight 414 lb Weight 414 lb 6.4 oz Most Recent Monitor Data Heart Rate from ECG 104 NIBP 165/111 NIBP BP-Mean 125 Respiration from ECG 31 SpO2 91 I&O: 02/23/17 02/24/17 02/25/17 06:59 06:59 06:59 Intake Total 2268 2090 1118 Output Total 1255 940 460 Balance 1013 1150 658 Result Diagrams: 02/24/17 04:15 02/24/17 04:15 Additional Labs: Accuchecks 02/24/17 02/24/17 02/24/17 16:16 12:11 04:20 POC Glucose 151 H 147 H 142 H 02/23/17 20:13 POC Glucose 165 H Phys Exam - Physical Examination Constitutional: NAD intubated HEENT: PERRLA, moist MMs Neck: no nodes, no JVD, supple, full ROM Respiratory: no wheezing vented sounds Cardiovascular: RRR, no significant murmur, no rub Gastrointestinal: soft, non-tender, no distention, positive bowel sounds Musculoskeletal: no edema, pulses present Dx/Plan (1) Acute on chronic respiratory failure with hypercapnia Code(s): J96.22 - ACUTE AND CHRONIC RESPIRATORY FAILURE WITH HYPERCAPNIA Status: Acute (2) Acute respiratory failure with hypoxia Code(s): J96.01 - ACUTE RESPIRATORY FAILURE WITH HYPOXIA Status: Acute (3) Loculated pleural effusion Code(s): J90 - PLEURAL EFFUSION, NOT ELSEWHERE CLASSIFIED Status: Acute (4) PNA (pneumonia) Code(s): J18.9 - PNEUMONIA, UNSPECIFIED ORGANISM Status: Acute Qualifiers: Pneumonia type: due to unspecified organism Laterality: right Lung location: unspecified part of lung Qualified Code(s): J18.9 - Pneumonia, unspecified organism (5) Pneumothorax Code(s): J93.9 - PNEUMOTHORAX, UNSPECIFIED Status: Acute (6) Pneumothorax, right Code(s): J93.9 - PNEUMOTHORAX, UNSPECIFIED Status: Acute (7) DM2 (diabetes mellitus, type 2) Status: Chronic Qualifiers: Diabetes mellitus complication status: without complication (8) HTN (hypertension) Code(s): I10 - ESSENTIAL (PRIMARY) HYPERTENSION Status: Chronic Qualifiers: Hypertension type: essential hypertension Qualified Code(s): I10 - Essential (primary) hypertension (9) Morbid obesity Code(s): E66.01 - MORBID (SEVERE) OBESITY DUE TO EXCESS CALORIES Status: Chronic (10) Sepsis Code(s): A41.9 - SEPSIS, UNSPECIFIED ORGANISM Status: Resolved Qualifiers: Sepsis type: Streptococcus, other Qualified Code(s): A40.8 - Other streptococcal sepsis - Plan plan discussed w/ family, continue antibiotics, PT/OT, nephrology social worker, respiratory therapy Pulmonary following -: Prognosis -poor * .
[2017-02-24] MEDS: Labetalol HCl 100 MG/20 ML VIAL SLOW IVP PRN (20:38)
[2017-02-25] MEDS: Ondansetron HCl/PF 4 MG/2 ML Vial SLOW IVP PRN (03:01)
[2017-02-25] MEDS: Insulin Regular 300 UNITS/3 ML VIAL SC PRN ×3 (04:22→17:56)
[2017-02-25] MEDS: Enoxaparin Sodium 40 MG/0.4 ML SYRINGE SC SCH (08:04)
[2017-02-25] MEDS: Carvedilol 6.25 MG TAB PER TUBE SCH ×2 (08:04→18:18)
[2017-02-25] MEDS: Famotidine 20 MG TAB PER TUBE SCH ×2 (08:04→21:57)
[2017-02-25] MEDS: Lisinopril 20 MG TAB PO SCH (08:05)
[2017-02-25] MEDS: Saccharomyces boulardii 250 MG CAP PO SCH (08:05)
[2017-02-25] MEDS: Insulin Detemir 100 UNITS/ML 30 UNITS in Pre-Filled Syringe 1 EACH SC SCH ×2 (08:05→21:57)
--- NOTE | 2017-02-25 13:04 | PDOC.PN ---
- Subjective Encounter Start Date: 02/25/17 Encounter Start Time: 13:02 -: non-verbal Subjective: Still intubated - Objective Resuscitation Status: Resuscitation Status FULL:Full Resuscitation Vital Signs & Weight: Vital Signs (12 hours) Temp Pulse Resp BP Pulse Ox 02/25/17 11:00 98.8 F 02/25/17 10:52 104 H 176/113 H 02/25/17 08:00 99.0 F 117 H 23 H 98 02/25/17 07:00 106 H 161/108 H 02/25/17 06:59 105 H 25 H 99 02/25/17 06:00 24 H 02/25/17 04:00 98.4 F 24 H 02/25/17 03:56 106 H 02/25/17 02:00 24 H 02/25/17 01:32 103 H 156/98 H Weight Admit Weight 414 lb Weight 415 lb 2.087 oz Most Recent Monitor Data Heart Rate from ECG 105 NIBP 176/113 NIBP BP-Mean 128 Respiration from ECG 27 SpO2 91 I&O: 02/24/17 02/25/17 02/26/17 06:59 06:59 06:59 Intake Total 2090 2573 240 Output Total 940 1215 280 Balance 1150 1358 -40 Result Diagrams: 02/24/17 04:15 02/24/17 04:15 Additional Labs: Accuchecks 02/25/17 02/25/17 02/24/17 11:29 04:19 20:35 POC Glucose 188 H 153 H 140 H 02/24/17 16:16 POC Glucose 151 H Phys Exam - Physical Examination Constitutional: NAD intubated HEENT: oral pharynx no lesions Neck: no nodes, no JVD, supple, full ROM Respiratory: no wheezing, no rales, no rhonchi vented sounds Cardiovascular: RRR, no significant murmur, no rub Gastrointestinal: soft, non-tender, no distention, positive bowel sounds Musculoskeletal: no edema, pulses present Dx/Plan (1) Acute on chronic respiratory failure with hypercapnia Code(s): J96.22 - ACUTE AND CHRONIC RESPIRATORY FAILURE WITH HYPERCAPNIA Status: Acute (2) Acute respiratory failure with hypoxia Code(s): J96.01 - ACUTE RESPIRATORY FAILURE WITH HYPOXIA Status: Acute (3) Loculated pleural effusion Code(s): J90 - PLEURAL EFFUSION, NOT ELSEWHERE CLASSIFIED Status: Acute (4) PNA (pneumonia) Code(s): J18.9 - PNEUMONIA, UNSPECIFIED ORGANISM Status: Acute Qualifiers: Pneumonia type: due to unspecified organism Laterality: right Lung location: unspecified part of lung Qualified Code(s): J18.9 - Pneumonia, unspecified organism (5) Pneumothorax Code(s): J93.9 - PNEUMOTHORAX, UNSPECIFIED Status: Acute (6) Pneumothorax, right Code(s): J93.9 - PNEUMOTHORAX, UNSPECIFIED Status: Acute (7) DM2 (diabetes mellitus, type 2) Status: Chronic Qualifiers: Diabetes mellitus complication status: without complication (8) HTN (hypertension) Code(s): I10 - ESSENTIAL (PRIMARY) HYPERTENSION Status: Chronic Qualifiers: Hypertension type: essential hypertension Qualified Code(s): I10 - Essential (primary) hypertension (9) Morbid obesity Code(s): E66.01 - MORBID (SEVERE) OBESITY DUE TO EXCESS CALORIES Status: Chronic (10) Sepsis Code(s): A41.9 - SEPSIS, UNSPECIFIED ORGANISM Status: Resolved Qualifiers: Sepsis type: Streptococcus, other Qualified Code(s): A40.8 - Other streptococcal sepsis - Plan plan discussed w/ family, fletcher catheter, continue antibiotics, PT/OT, psychotherapist social worker, respiratory therapy Likely on a prolonged hospitalisation course * .
[2017-02-25 13:43] VITALS: BP 164/114
[2017-02-25] MEDS: NS 0.9% w/ 20 MEQ KCL 1,000 ML/1,000 ML BAG IV SCH (14:27)
[2017-02-25] MEDS: Labetalol HCl 100 MG/20 ML VIAL SLOW IVP PRN (16:15)
--- NOTE | 2017-02-25 18:16 | RAD ---
PORTABLE CHEST: 02/25/17 HISTORY: Ventilator patient with dyspnea. CCU followup. COMPARISON: 02/21/17 and 02/22/17. Tracheostomy device remains in place. There is a moderate sized right pleural effusion with fluid see n along the lateral chest and posteriorly. Cardiomegaly. Left lung remains clear. IMPRESSION: Moderate to large right effusion again noted. POS: [facility]
[2017-02-25] MEDS ORDERED: Magnesium Citrate 300 ML BOT PER TUBE SCH (19:00)
[2017-02-25 20:25] VITALS: TEMP 98.8
[2017-02-25] MEDS: Lorazepam 2 MG/ML VIAL SLOW IVP PRN ×2 (20:30→20:31)
[2017-02-25] MEDS: Vecuronium 10 MG VIAL IV PRN ×2 (20:33→21:10)
[2017-02-25] MEDS ORDERED: Heparin 10,000 UNITS/1 ML VIAL SLOW IVP SCH (21:15)
--- NOTE | 2017-02-25 21:18 | PRG ---
CDATE OF SERVICE: 02/25/2017 She told me today she is willing to go on for her kids. She is still only make an hour and a half off the ventilator. May be we need to start trying twice a day doing an hour in the morning and an hour in the evening. To seem then however she had clinically what appears to be mucus plug. Her chest radiograph was repeated. There was no change of the left lung. The right lung, rarely has been contributing much given the destruction of her upper lobe. She had clear left lung earlier today and bilateral equal breath sounds. Actually, heart regular rhythm. Abdomen is Soft. LABORATORY DATA: There is no lab today. IMPRESSION: Weakness with deconditioning and respiratory failure after pneumococcal sepsis and respiratory failure brought on by post-influenza pneumonia. I had a long discussion with the mother today. She has been asking her mom to let her go. Her mom is not ready to cross that bridge. At some point in time as I have explained to the mom, her wishes will have to be honored. I am anticipating that an extremely long hospitalization followed by skilled nursing placement. I would not guess that she would ever become independent again, but at 31 years of age, we have the hope that she will. Her total calorie intake is about 800 calories a day with her tube feeds and we were not overfeeding her. But the mother thinks that if she just does not get fed and she loses weight, she will be fine, but I have explained that she also loses muscle mass with her weight loss given that she is totally dependent on staff to move her around. She contributes very little to her movement from bed to neuro chair. We will continue with current aggressive care. Critical care time 40 min. HEMA
[2017-02-25] MEDS ORDERED: Vancomycin HCl 1.5 GM in Sodium Chloride 0.9% 250 ML 300 ML IVPB SCH (21:30)
[2017-02-25] MEDS ORDERED: Heparin 10,000 UNITS/ 10 ML VIAL SLOW IVP SCH (21:45)
[2017-02-25] MEDS ORDERED: Meropenem 2 GM, Admixture Fee 1 EACH in Sodium Chloride 0.9% 100 ML IVPB SCH (22:00)
--- NOTE | 2017-02-25 22:25 | PRG ---
DATE OF SERVICE: 02/25/2017 HISTORY: Ms. Andrade decline from a gas exchange standpoint tonight. Aggressive suctioning did not lead to resolution of the problem. This has worked in the past. She is plugged on multiple times wi th a [place] tracheostomy. Chest radiograph was reviewed and showed no new infiltrates in the left, s he still had her same changes on the right. On exam, she had equal breath sounds. She was not more tachycardic. She was, however, much more hyp oxic. She was chemically paralyzed, sedated, volume ventilated. Even with this, there is no improve ment in her gas exchange. It is my belief that possibly this was thromboembolic disease, although [place] [facility] has been on prophylactic dose Lovenox and she did not develop any change in her vital signs with th is event. I elected to anticoagulate her and also reculture and start antibiotics. I met with the family. With the help of mobilizing nurse as an yield clerk, we discussed end of life issues. She has been telling her mother for over a week that she was ready to and asking her mo ther to let her ago. I have explained to them that it would be an appropriate to do chest compressions if all of these agg ressive measures fail to lead to improvement and they agreed. I stepped out and entered all the orde rs and was entering orders on another patient and came back to the room and she developed pulseless e lectrical activity while I was in the room. I had ordered a blood gas and this had not been done yet. Unfortunately, I do not think she would survive no matter what we did. Multiple family members are h ere this time. Her is here and all of this has been explained to him in [place]. Body will be released to the home, less family wants an autopsy, really I do not see that an autopsy will change or provide any information given she is well over 400 pounds, this would be a dif ficult autopsy. In any event, this is a nonissue from a survival standpoint. If the family does not want an autopsy, she will be released to the home.
[2017-02-26] MEDS ORDERED: Enoxaparin Sodium 120 MG/0.8 ML SYRINGE SC SCH (09:00)
== END 2017-02-25 23:45 | disposition expired | DRG 4 ==
LOC: ERS 14:31 → CCU 19:34
PROVIDERS: ADMIT Internal Medicine Infectious Disease; ATTEND Internal Medicine Infectious Disease
PROC: 04JY3ZZ Inspection of Lower Artery, Percutaneous Approach (ICD-10-PCS; 2017-01-27)
PROC: 0B110F4 Bypass Trachea to Cutaneous with Tracheostomy Device, Open Approach (ICD-10-PCS; 2017-01-30)
PROC: 0W9900Z Drainage of Right Pleural Cavity with Drainage Device, Open Approach (ICD-10-PCS; 2017-01-30)
PROC: 0B9F8ZX Drainage of Right Lower Lung Lobe, Via Natural or Artificial Opening Endoscopic, Diagnostic (ICD-10-PCS; 2017-02-02)
PROC: 0B9C8ZX Drainage of Right Upper Lung Lobe, Via Natural or Artificial Opening Endoscopic, Diagnostic (ICD-10-PCS; 2017-02-02)
PROC: 0B9D8ZX Drainage of Right Middle Lung Lobe, Via Natural or Artificial Opening Endoscopic, Diagnostic (ICD-10-PCS; 2017-02-02)
PROC: 0B110F4 Bypass Trachea to Cutaneous with Tracheostomy Device, Open Approach (ICD-10-PCS; 2017-02-02)
PROC: 5A1955Z Respiratory Ventilation, Greater than 96 Consecutive Hours (ICD-10-PCS; principal; 2017-02-03)
PROC: 0BH17EZ Insertion of Endotracheal Airway into Trachea, Via Natural or Artificial Opening (ICD-10-PCS; 2017-02-20)
DX: A41.9 Sepsis, unspecified organism (principal); K72.00 Acute and subacute hepatic failure without coma; G93.40 Encephalopathy, unspecified; J10.08 Influenza due to other identified influenza virus with other specified pneumonia; J85.0 Gangrene and necrosis of lung; J13 Pneumonia due to Streptococcus pneumoniae; N17.9 Acute kidney failure, unspecified; J80 Acute respiratory distress syndrome; J96.02 Acute respiratory failure with hypercapnia; T17.890A Other foreign object in other parts of respiratory tract causing asphyxiation, initial encounter; Z68.44 Body mass index [BMI] 60.0-69.9, adult; E66.2 Morbid (severe) obesity with alveolar hypoventilation; J93.83 Other pneumothorax; R65.20 Severe sepsis without septic shock; E88.09 Other disorders of plasma-protein metabolism, not elsewhere classified; R13.10 Dysphagia, unspecified; I10 Essential (primary) hypertension; E87.6 Hypokalemia; D64.9 Anemia, unspecified; E11.9 Type 2 diabetes mellitus without complications; Z79.4 Long term (current) use of insulin; Z91.19 Patient's noncompliance with other medical treatment and regimen; Z88.1 Allergy status to other antibiotic agents; X58.XXXA Exposure to other specified factors, initial encounter
CPT/HCPCS: 31500; 36415; 36416; 36556; 51702; 71010; 71045; 71250; 74018; 80048; 80053; 81003; 81015; 82550; 82805; 83605; 83735; 83880; 84100; 84703; 85007; 85025; 85027; 87040; 87070; 87077; 87086; 87149; 87186; 87205; 87324; 87449; 93005; 93010; 93306; 94002; 94003; 94640; 94660; 96361; 96365; 96366; 96375; 96376; 99292; A4216; C1751; G8978-GP-CM; G8978-GP-CN; G8979-GP-CL; J0131; J0171; J0692; J1160; J1630; J1644; J1650; J1815; J1940; J1956; J2001; J2060; J2185; J2250; J2270; J2405; J2704; J2765; J2920; J3010; J3370; J3475; J3480; J3490; J7042; J7050; J7070; J7620; P9047